=== PATIENT | female | born 1965 | race African-American/Black ===

== ENCOUNTER 2016-11-23 20:20 | Observation (INO) | payer OTHER ==
--- NOTE | 2016-11-24 01:25 | PDOC ---
History of Present Illness - General History Source: Patient Exam Limitations: No Limitations - History of Present Illness Initial Comments: 11/24/16 01:41 The patient is a 51 year old female with a significant past medical history of Throat CA, borderline diabetes, and colitis who presents to the ED with complaints of abdominal pain for 2 days. Patient reports 3 years of intermittent abdominal pain. She states her symptoms progressively worsened and yesterday she felt like something burst inside her stomach. She reports developing chills with a slight cough last night. Patient reports her abdominal pain is worsened when laying on her back. As per daughter, the patients eyes are red and swollen. Patient had a fever upon arrival to the ED. Denies nausea, vomiting, or diarrhea. Denies chest pain or shortness of breath. Denies dysuria, frequency, or urgency. Denies any other symptoms. Social hx: Patient is a current everyday smoker. <Beto Murcia - Last Filed: 11/24/16 01:41> <Nora Arvizu - Last Filed: 11/24/16 07:41> - General Chief Complaint: Weakness Stated Complaint: Lightheaded/ PAIN Time Seen by Provider: 11/24/16 01:25 Past History <Beto Murcia - Last Filed: 11/24/16 01:41> - Past Medical History GI Disorders: Yes (colitis) - Psycho/Social/Smoking Cessation Hx Suicidal Ideation: No Smoking History: Current every day smoker Number of Cigarettes Smoked Daily: 2 Information on smoking cessation initiated: No <Nora Arvizu - Last Filed: 11/24/16 07:41> - Past Medical History Allergies/Adverse Reactions: Allergies Allergy/AdvReac Type Severity Reaction Status Date / Time No Known Allergies Allergy Verified 11/24/16 03:37 Home Medications: Ambulatory Orders Amoxicillin/Potassium Clav [Augmentin 875-125 Tablet] 1 each PO BID #20 tablet 11/24/16 Bupropion HCl [Bupropion HCl Sr] 150 mg PO DAILY 11/24/16 Cyclobenzaprine HCl [Flexeril 10 mg] 10 mg PO DAILY 11/24/16 Linaclotide [Linzess] 145 mcg PO DAILY 11/24/16 Metronidazole 250 mg PO DAILY 11/24/16 Omeprazole 20 mg PO DAILY 11/24/16 Pantoprazole Sodium 40 mg PO DAILY 07/08/17 Review of Systems - Review of Systems Able to Perform ROS?: Yes Comments:: 11/24/16 01:41 CONSTITUTIONAL: + chills, fever Absent: diaphoresis, generalized weakness, malaise, loss of appetite HEENT: + red and swollen eyes Absent: rhinorrhea, nasal congestion, throat pain, throat swelling, difficulty swallowing, mouth swelling, ear pain, eye pain, visual Changes CARDIOVASCULAR: Absent: chest pain, syncope, palpitations, irregular heart rate, lightheadedness , peripheral edema RESPIRATORY: + cough Absent: cough, shortness of breath, dyspnea with exertion, orthopnea, wheezing, stridor, hemoptysis GASTROINTESTINAL: + abdominal pain Absent: abdominal pain, abdominal distension, nausea, vomiting, diarrhea, constipation, melena, hematochezia GENITOURINARY: Absent: dysuria, frequency, urgency, hesitancy, hematuria, flank pain, genital pain MUSCULOSKELETAL: Absent: myalgia, arthralgia, joint swelling SKIN: Absent: rash, itching, pallor HEMATOLOGIC/IMMUNOLOGIC: Absent: easy bleeding, easy bruising, lymphadenopathy, frequent infections ENDOCRINE: Absent: unexplained weight gain, unexplained weight loss, heat intolerance, cold intolerance NEUROLOGIC: Absent: headache, focal weakness or paresthesias, dizziness, unsteady gait, seizure, mental status changes, bladder or bowel incontinence PSYCHIATRIC: Absent: anxiety, depression, suicidal or homicidal ideation, hallucinations. All Other Systems: Reviewed and Negative <Beto Murcia - Last Filed: 11/24/16 01:41> *Physical Exam - Vital Signs Last Vital Signs Temp Pulse Resp BP Pulse Ox 102.9 F H 85 18 127/83 99 11/23/16 20:33 11/23/16 20:33 11/23/16 20:33 11/23/16 20:33 11/23/16 20:33 - Physical Exam Comments: 11/24/16 01:42 GENERAL: Well developed, well nourished. Awake and alert. No acute distress. HEENT: Normocephalic, atraumatic. PERRLA, EOMI. No conjunctival pallor. Sclera are non- icteric. Moist mucous membranes. Oropharynx is clear. NECK: Supple. Full ROM. No JVD. Carotid pulses 2+ and symmetric, without bruits. No thyromegaly. NCo lymphadenopathy. CARDIOVASCULAR: Regular rate and rhythm. No murmurs, rubs, or gallops. Distal pulses are 2+ and symmetric. PULMONARY: No evidence of respiratory distress. Lungs clear to auscultation bilaterally. No wheezing, rales or rhonchi. ABDOMINAL: + Left lower quadrant tenderness minimal left flank tenderness. Soft. Non-distended. No rebound or guarding. No organomegaly. Normoactive bowel sounds. MUSCULOSKELETAL Normal range of motion at all joints. No bony deformities or tenderness. No CVA tenderness. EXTREMITIES: No cyanosis. No clubbing. No edema. No calf tenderness. SKIN: Warm and dry. Normal capillary refill. No rashes. No jaundice. NEUROLOGICAL: Alert, awake, appropriate. Cranial nerves 2-12 intact. No deficits to light touch and temperature in face, upper extremities and lower extremities. No motor deficits in the in face, upper extremities and lower extremities. Normoreflexic in the upper and lower extremities. Normal speech. Toes are down- going bilaterally. Gait is normal without ataxia. PSYCHIATRIC: Cooperative. Good eye contact. Appropriate mood and affect. <Beto Murcia - Last Filed: 11/24/16 01:41> - Vital Signs Last Vital Signs Temp Pulse Resp BP Pulse Ox 102.9 F H 85 18 127/83 99 11/23/16 20:33 11/23/16 20:33 11/23/16 20:33 11/23/16 20:33 11/23/16 20:33 <Nora Arvizu - Last Filed: 11/24/16 07:41> ED Treatment Course - LABORATORY CBC & Chemistry Diagram: 11/24/16 01:33 11/24/16 01:33 <Nora Arvizu - Last Filed: 11/24/16 07:41> Medical Decision Making - Medical Decision Making 11/24/16 06:56 Patient Name: Nancy Coffey THIS IS A PRELIMINARY REPORT FROM [facility] DATE OF SERVICE: 2016-11-24 05:33:00.0 IMAGES: [id number] EXAM: CT chest abdomen and pelvis WITHOUT CONTRAST HISTORY:Right lung nodules, concern for colitis COMPARISON: None. TECHNIQUE: CT chest abdomen pelvis without vascular contrast axial FINDINGS:Heart remains normal. Thoracic aorta and great vessels appear normal. Superior vena caval and inferior vena cava appear normal. Pulmonary arteries are normal in caliber. Thoracic esophagus is normal. Mediastinal lymph nodes are not enlarged. The There is a 2.3 x 2.1 x 2.2 cm right lower lobe subpleural partially calcified nodule. Calcification morphology appears to reflect a hamartoma. There is a 3 mm calcified nodule in the lateral right middle lobe. There is no pleural effusion or pneumothorax. Chest wall appears normal. Right thyroid is surgically absent CT Abdomen Liver: Normal Spleen: Normal Pancreas: Normal Gallbladder: Normal Stomach: Normal Small bowel: Normal Large bowel: There is some thickening in the sigmoid colon and descending colon Appendix: Normal Adrenals :Normal Kidneys: Normal Vascular: Normal Lymphatic: Normal Peritoneal: No free peritoneal air or fluid Pelvis: Uterus: Normal Rectum: Normal Bladder: Normal General: The Skeletal: Normal Abdominal wall: There is fat within the right inguinal canal IMPRESSION: Nonspecific sigmoid colitis. Pulmonary hamartoma Pulmonary granuloma THIS DOCUMENT HAS BEEN ELECTRONICALLY SIGNED 11/24/16 07:03 Pt has colitis and she has fever and abd pain and she will be admitted to the hospitalist for IV abx and IV hydration. 11/24/16 07:04 Pt came with fever and abd pain. She was refusing repeat attempts at IV placement and was refusing all meds in the hospital. However, this AM an IV was successfully placed and at the same time her CT result returbed; she has a colitis/sigmoiditis and she is agreeing to IV abx. and admission as her abd hurts and she is unable to tolerate PO. <Nora Arvizu - Last Filed: 11/24/16 07:41> *DC/Admit/Observation/Transfer - Attestations Scribe Attestion: 11/24/16 01:42 Documentation prepared by Beto Murcia, acting as biomedical photographer for Nora Arvizu MD <Beto Murcia - Last Filed: 11/24/16 01:41> - Discharge Dispostion Admit: Yes <Nora Arvizu - Last Filed: 11/24/16 07:41> Diagnosis at time of Disposition: Colitis - Discharge Dispostion Condition at time of disposition: Guarded - Prescriptions Prescriptions: Amoxicillin/Potassium Clav [Augmentin 875-125 Tablet] 1 each PO BID #20 tablet - Referrals Referrals: He Abbott MD [Primary Care Provider] -
[2016-11-24] MEDS ORDERED: morphine CARPU-JECT 2 MG/1 ML DISP.SYRIN IVPUSH ONE (01:27)
[2016-11-24] MEDS ORDERED: ACETAMINOPHEN 1000 MG/100 ML VIAL (NON FORMULARY) IVPB ONE ×2 (01:27→07:09)
[2016-11-24] MEDS ORDERED: METRONIDAZOLE 500 MG PREMIXED 100 ML IVPB ONE ×2 (01:38→07:02)
[2016-11-24 01:50] LABS: BASOPHIL 0.2 % (0-2.0); EOSINOPHIL 0.1 % (0-4.5); MCH 31.2 pg (25.7-33.7); MCHC 33.7 g/dl (32.0-36.0); MEAN CELL VOLUME 92.6 fl (80-96); NEUTROPHILS 84.4 % (42.8-82.8); PLATELET COUNT 231 K/MM3 (134-434); WHITE BLOOD COUNT 7.8 K/mm3 (4.0-10.0)
[2016-11-24 01:51] LABS: URINE APPEARANCE CLEAR; URINE BILIRUBIN NEGATIVE (NEGATIVE); URINE COLOR YELLOW; URINE GLUCOSE (UA) NEGATIVE (NEGATIVE); URINE KETONE NEGATIVE (NEGATIVE); URINE NITRITE NEGATIVE (NEGATIVE); URINE UROBILINOGEN NEGATIVE E.U./dl (0.2-1.0)
[2016-11-24 01:56] LABS: URINE BLOOD 1+ (NEGATIVE); URINE LEUK ESTERASE 1+ (NEGATIVE); URINE PROTEIN 1+ (NEGATIVE)
[2016-11-24 01:59] LABS: URINE BACTERIA RARE /hpf (NONE SEEN); URINE MUCUS RARE; URINE RBC 2 /hpf (0-3); URINE WBC 6 /hpf (3-5)
[2016-11-24 02:04] LABS: INR 1.04 (0.82-1.09); PROTHROMBIN TIME (PATIENT) 11.4 SEC (9.98-11.88)
[2016-11-24] MEDS ORDERED: morphine CARPU-JECT 2 MG/1 ML DISP.SYRIN ONE ×2 (02:04→08:51)
[2016-11-24] MEDS ORDERED: ACETAMINOPHEN INJECTION 0 ML IVPB ONE (02:04)
[2016-11-24 02:12] LABS: ALBUMIN 3.7 g/dl (3.4-5.0); ANION GAP 6 (8-16); BILIRUBIN,TOTAL 0.6 mg/dL (0.2-1.0); CALCIUM 8.2 mg/dL (8.5-10.1); CO2 30 mmol/L (21-32); CREATININE 0.6 mg/dL (0.55-1.02); GLUCOSE,RANDOM 99 mg/dL (74-106); SGOT/AST 17 U/L (15-37); SGPT/ALT 24 U/L (12-78); TOT PROT 7.5 g/dl (6.4-8.2)
[2016-11-24 02:14] LABS: ALK PHOS 85 U/L (45-117); TROPONIN I < 0.02 ng/ml (0.00-0.05)
[2016-11-24] MEDS: ACETAMINOPHEN 325 MG TABLET (FP) PO ONE ×2 (06:55→07:11)
[2016-11-24] MEDS: PIPERACILLIN/TAZOB 3.375 GM 3.375 GM in DEXTROSE 5%-WATER - 50 ML IVPB ONE ×2 (06:55→08:15)
[2016-11-24] MEDS: SODIUM CHLORIDE 0.9% 1000 ML INFUS.BAG IV PRN ×2 (07:08→19:06)
[2016-11-24 07:19] LABS: VENOUS BLOOD GAS HCO3 25.6 meq/L (19-25); VENOUS PH 7.41 (7.32-7.42)
[2016-11-24] MEDS ORDERED: PIPERACILLIN/TAZOB 3.375 GM 50 ML IVPB ONE (08:03)
--- NOTE | 2016-11-24 08:26 | HP ---
CHIEF COMPLAINT: "i have stomach pain" PCP: Dr Abbott HISTORY OF PRESENT ILLNESS: This is a 51 yo female smoker with a PMH of recurrent infectious colitis, hemorrhoids, Throat CA (remission) and borderline DM, who presents to the ED due to abd pain x 2 d. She states that it started suddenly and gradually worsened. Pain is 10/10, constant, sharp, mostly left sided and radiating to L flank and epigastric region as burning sensation. She reports associated fever, malaise and anorexia w/o n/v, chills, diarrhea or constipation. She has had this happen 2x before, last time in 2014, when she was treated in [facility] with IV abx w/o surgical intervention. Her last colonoscopy by Dr Ivey was 2 yrs ago, at [facility] time a polyp was removed and she was told to repeat in 3 yrs. She has a history of constipation and hemorrhoids, with occasional bright red bloody, painful BMs when straining, last hematochezia 1 w ago. Last normal nonbloody nonmelenous nonpainful BM yesterday. She unintentionally lost 5 lb recently. She denies dysuria, hematuria, urgency, chest pain, sob, h/a. ER course was notable for: (1)labs (2)cxr, chest ct: lung nodules p[resent that patient is aware of and follows with pulm outpatient abd CT: sigmoiditis w/o abscess (3)flagyl, zosyn, 1L ns, iv tylenol, morphine Recent Travel: denies PAST MEDICAL HISTORY: as above PAST SURGICAL HISTORY: ovarian tubal ligation Social History: Smoking: heavy smoker for 30 yrs Alcohol: denies Drugs: past crack user Family History: brother from lung CA in 40's (smoker), mother CAD and DM Allergies No Known Allergies Allergy (Verified 11/24/16 03:37) HOME MEDICATIONS: Home Medications Medication Instructions Recorded Amoxicillin/Potassium Clav 1 each PO BID #20 tablet 11/24/16 [Augmentin 875-125 Tablet] Bupropion HCl [Bupropion HCl Sr] 150 mg PO DAILY 11/24/16 Cyclobenzaprine HCl [Flexeril 10 10 mg PO DAILY 11/24/16 mg] Linaclotide [Linzess] 145 mcg PO DAILY 11/24/16 Metronidazole 250 mg PO DAILY 11/24/16 Omeprazole 20 mg PO DAILY 11/24/16 Pantoprazole Sodium 40 mg PO DAILY 11/24/16 REVIEW OF SYSTEMS CONSTITUTIONAL: Absent: diaphoresis HEENT: Absent: rhinorrhea, nasal congestion, throat pain, difficulty swallowing, CARDIOVASCULAR: Absent: chest pain, syncope, palpitations RESPIRATORY: Absent: shortness of breath GASTROINTESTINAL: Absent: abdominal distension, nausea, vomiting, diarrhea, constipation GENITOURINARY: Absent: dysuria, frequency, urgency MUSCULOSKELETAL: Absent: myalgia, arthralgia SKIN: Absent: rash, itching, pallor HEMATOLOGIC/IMMUNOLOGIC: Absent: frequent infections ENDOCRINE: Absent: heat intolerance, cold intolerance NEUROLOGIC: Absent: headache, focal weakness or paresthesias PSYCHIATRIC: Absent: anxiety, depression Laboratory Tests 11/24/16 11/24/16 11/24/16 01:33 01:33 01:37 WBC 7.8 Hgb 13.2 Hct 39.4 Plt Count 231 Neutrophils % 84.4 H Sodium 141 Potassium 3.7 Chloride 105 Carbon Dioxide 30 Anion Gap 6 L BUN 8 Creatinine 0.6 Creat Clearance w eGFR > 60 Random Glucose 99 Lactic Acid 1.0 Calcium 8.2 L Total Bilirubin 0.6 AST 17 ALT 24 Alkaline Phosphatase 85 Creatine Kinase 70 Troponin I < 0.02 Total Protein 7.5 Albumin 3.7 Urine Color Urine Appearance Urine pH Ur Specific [place] Urine Protein Urine Glucose (UA) Urine Ketones Urine Blood Urine Nitrite Urine Bilirubin Urine Urobilinogen Ur Leukocyte Esterase Urine RBC Urine WBC Ur Epithelial Cells Urine Bacteria Urine Mucus 11/24/16 11/24/16 01:39 06:54 WBC Hgb Hct Plt Count Neutrophils % Sodium Potassium Chloride Carbon Dioxide Anion Gap BUN Creatinine Creat Clearance w eGFR Random Glucose Lactic Acid 0.8 Calcium Total Bilirubin AST ALT Alkaline Phosphatase Creatine Kinase Troponin I Total Protein Albumin Urine Color Yellow Urine Appearance Clear Urine pH 6.0 Ur Specific [place] Pending Urine Protein 1+ H Urine Glucose (UA) Negative Urine Ketones Negative Urine Blood 1+ H Urine Nitrite Negative Urine Bilirubin Negative Urine Urobilinogen Negative Ur Leukocyte Esterase 1+ H Urine RBC 2 Urine WBC 6 Ur Epithelial Cells Moderate Urine Bacteria Rare Urine Mucus Rare PHYSICAL EXAMINATION GENERAL: Awake, alert, and fully oriented, in mild distress. HEAD: Normal with no signs of trauma. EYES: Pupils equal, round and reactive to light, extraocular movements intact, sclera anicteric, conjunctiva clear. No lid lag. EARS, NOSE, THROAT: Moist mucous membranes. NECK: supple without JVD LUNGS: Breath sounds equal, clear to auscultation bilaterally HEART: Regular rate and rhythm, normal S1 and S2 ABDOMEN: Soft, tender LLQ, not distended, globally reduced bowel sounds, voluntary guarding LLQ, no rebound, no masses. No hepatomegaly or splenomegaly. MUSCULOSKELETAL: L CVA tenderness. UPPER EXTREMITIES: 2+ pulses, warm, well-perfused. No cyanosis. No clubbing. No peripheral edema. LOWER EXTREMITIES: 2+ pulses, warm, well-perfused. No calf tenderness. No peripheral edema. NEUROLOGICAL: Cranial nerves II-XII grossly intact. Normal speech. PSYCHIATRIC: Cooperative. Good eye contact. Appropriate mood and affect. SKIN: Warm, dry ASSESSMENT/PLAN: his is a 51 yo female smoker with a PMH of recurrent infectious colitis, hemorrhoids, Throat CA (remission) and borderline DM, who presents to the ED due to abd pain x 2 d Uncomplicated sigmoid colitis -does not meet SIRS criteria; fever 102.9, no leukocytosis, + neutrophelia, hemodynamically stable -CT abd shows sigmoiditis w/o abscess -s/p zosyn, flagyl in ED; will continue; expect to switch to PO abx shortly -IV tylenol and morphine for pain, -LR @ 150 -PPI -clears -Dr Ivey consult -blood cultures p/d Pulmonary nodules -no acute preocess on CXR or chest CT -history of TB exposure s/p abx treatment in youth -f/u with pulmonology outpatient Current daily smoker -cessation counseling -nicotine patch Dispo: obs in [facility] Problem List - Problem (1) Colitis Code(s): K52.9 - NONINFECTIVE GASTROENTERITIS AND COLITIS, UNSPECIFIED (2) Lung nodule, multiple Code(s): R91.8 - OTHER NONSPECIFIC ABNORMAL FINDING OF LUNG FIELD (3) Smoker Code(s): F17.200 - NICOTINE DEPENDENCE, UNSPECIFIED, UNCOMPLICATED Visit type - Emergency Visit Emergency Visit: Yes ED Registration Date: 11/24/16 Care time: The patient presented to the Emergency Department on the above date and was hospitalized for further evaluation of their emergent condition. - New Patient This patient is new to me today: Yes Date on this admission: 11/24/16 - Critical Care Critical Care patient: No
--- NOTE | 2016-11-24 08:31 | HP ---
CHIEF COMPLAINT: Abdominal Pain PCP Scar Cutler HISTORY OF PRESENT ILLNESS: 51 year old female with a pmh of colitis, hemorrhoids, borderline DM, and throat cancer who presented to the ED with a 2 day history of abdominal pain. Patient has a 3 year history of intermittent abdominal pain and states her symptoms started suddenly and worsened over the last 2 days. Pain is constant, sharp and on her left side radiating to her back and chest, like a burning sensation. Positive ROS: Fever, chills, lack of appetite, Negative ROS: Denies nausea, vomiting, diarrhea, chest pain, shortness of breath , dysuria, hematuria Of note, patient has had multiple episodes in the past of this, last one in 2014. Never had a surgical procedure done. She had a colonoscopy done last year by Dr. Ivey. A polyp was removed and was told to come back in a few years. She also has a history of hemorrhoids and constipation, for which she intermittently gets hematochezia (last episode last week). Otherwise her last meal and BM were yesterday In addition, patient has a remote history of Tb exposure and finished a course of INH +B6. She follows with a horse groomer for lung nodules and was supposed to get TB blood work done. ER course was notable for: (1) T 102.7 (2) CXR - which showed no change from a prior CXR with her lung nodules (3) Started on Flagyl, Zosyn, IV tylenol, and 1 L NS Recent Travel: n/a PAST MEDICAL HISTORY: Throat cancer PAST SURGICAL HISTORY: Tubal ligation Social History: Smoking: History of 1 ppd for many years, now down to 2 cigarettes per day Alcohol:No Drugs: Previous cocaine user Family History: Brother of lung cancer at 40 Allergies: No Known Allergies Allergy (Verified 11/24/16 03:37) HOME MEDICATIONS: Home Medications Medication Instructions Recorded Amoxicillin/Potassium Clav 1 each PO BID #20 tablet 11/24/16 [Augmentin 875-125 Tablet] Bupropion HCl [Bupropion HCl Sr] 150 mg PO DAILY 11/24/16 Cyclobenzaprine HCl [Flexeril 10 10 mg PO DAILY 11/24/16 mg] Linaclotide [Linzess] 145 mcg PO DAILY 11/24/16 Metronidazole 250 mg PO DAILY 11/24/16 Omeprazole 20 mg PO DAILY 11/24/16 Pantoprazole Sodium 40 mg PO DAILY 11/24/16 REVIEW OF SYSTEMS CONSTITUTIONAL: Absent: diaphoresis, generalized weakness, malaise, weight change Present: fever, chills, loss of appetite HEENT: Absent: rhinorrhea, nasal congestion, throat pain, throat swelling, difficulty swallowing, mouth swelling, ear pain, eye pain, visual changes CARDIOVASCULAR: Absent: chest pain, syncope, palpitations, irregular heart rate, lightheadedness , peripheral edema RESPIRATORY: Absent: shortness of breath, dyspnea with exertion, orthopnea, wheezing, stridor, hemoptysis Positive: cough GASTROINTESTINAL: Absent: abdominal distension, nausea, vomiting, diarrhea, constipation, melena, hematochezia Positive: abdominal pain GENITOURINARY: Absent: dysuria, frequency, urgency, hesitancy, hematuria, flank pain, genital pain MUSCULOSKELETAL: Absent: myalgia, arthralgia, joint swelling, back pain, neck pain SKIN: Absent: rash, itching, pallor HEMATOLOGIC/IMMUNOLOGIC: Absent: easy bleeding, easy bruising, lymphadenopathy, frequent infections ENDOCRINE: Absent: unexplained weight gain, unexplained weight loss, heat intolerance, cold intolerance NEUROLOGIC: Absent: headache, focal weakness or paresthesias, dizziness, unsteady gait, seizure, mental status changes, bladder or bowel incontinence PSYCHIATRIC: Absent: anxiety, depression, suicidal or homicidal ideation, hallucinations. PHYSICAL EXAMINATION VS- GENERAL: Awake, alert, and fully oriented, in mild distress. HEAD: Normal with no signs of trauma. EYES: Pupils equal, round and reactive to light, extraocular movements intact, sclera anicteric, conjunctiva clear. No lid lag. EARS, NOSE, THROAT: Ears normal, nares patent, oropharynx clear without exudates. Moist mucous membranes. NECK: Normal range of motion, supple without lymphadenopathy, JVD, or masses. LUNGS: Breath sounds equal, clear to auscultation bilaterally. No wheezes, and no crackles. No accessory muscle use. HEART: Regular rate and rhythm, normal S1 and S2 without murmur, rub or gallop. ABDOMEN: Soft, Tender in LUQ and LLQ and Left flank, not distended, normoactive bowel sounds, mild guarding, no rebound, no masses. No hepatomegaly or splenomegaly. MUSCULOSKELETAL: Normal range of motion at all joints. No bony deformities or tenderness. No CVA tenderness. UPPER EXTREMITIES: 2+ pulses, warm, well-perfused. No cyanosis. No clubbing. No peripheral edema. LOWER EXTREMITIES: 2+ pulses, warm, well-perfused. No calf tenderness. No peripheral edema. NEUROLOGICAL: Cranial nerves II-XII intact. Normal speech. Normal gait. PSYCHIATRIC: Cooperative. Good eye contact. Appropriate mood and affect. SKIN: Warm, dry, normal turgor, no rashes or lesions noted, normal capillary refill. Labs- WBC- 7.8, Lactic acid was 1 followed by 0.8 Imaging- CT abd was done, report not back but looks like an inflamed sigmoid colon ASSESSMENT/PLAN: 51 year old female with a pmh of colitis presenting with 2 day history of worsening abdominal pain 1. Uncomplicated Sigmoiditis, likely infectious and less likely ischemic - Started on Zosyn and Flagyl in the ED - IVF 1L bolus - given IV tylenol for pain - WBC- 7.8 - CT shows inflamed sigmoid colon Plan: -Admit to obs -Consult GI (consult GI) -Change ABx to IV Rocephin 1g BID and IV Flagyl 500 mg Q6H -Morphine 2g Q4H PRN -IVF NS 150 cc/hr -Clear Liquid Diet -F/u BCX 2. Pulmonary Nodules -History of TB exposure -pt states she needs to get labs drawn Plan: -F/u outpatient w/ her horse groomer 3. Smoker -Long hx of smoking Plan: -Discussed smoking cessation -Patient given nicotine patch 4. GERD -chronic Plan: -PO protonix 40 mg daily Visit type - Emergency Visit Emergency Visit: Yes ED Registration Date: 11/24/16 Care time: The patient presented to the Emergency Department on the above date and was hospitalized for further evaluation of their emergent condition. - New Patient This patient is new to me today: Yes Date on this admission: 11/24/16 - Critical Care Critical Care patient: No
[2016-11-24] MEDS ORDERED: LACTATED RINGERS SOLUTION 1,000 ML IV SCH (08:45)
[2016-11-24] MEDS: morphine CARPU-JECT 2 MG/1 ML DISP.SYRIN IVPUSH PRN ×2 (08:55→21:41)
--- NOTE | 2016-11-24 08:59 | PN ---
Teaching Attending Note Name of Resident: Teddy Goldberg ATTENDING PHYSICIAN STATEMENT I saw and evaluated the patient. I reviewed the resident's note and discussed the case with the resident. I agree with the resident's findings and plan as documented. SUBJECTIVE: This is a 51-year-old woman with a history of colitis, throat cancer , hemorrhoids, constipation, borderline DM, lung nodules, GERD who presents to the ER complaining of LLQ abdominal pain and weakness for several days. She denies fever, chills, nausea, diarrhea, melena, rectal bleeding. OBJECTIVE: Vital Signs Period Temp Pulse Resp BP Sys/Dudley Pulse Ox Last 24 Hr 101.7 F-102.9 F 85-85 17-18 109-127/54-83 98-99 HEART: S1S2, RRR LUNGS: Clear ABDOMEN: Soft, non-distended, normal BS, (+) LLQ tenderness EXTREMITIES: No edema ASSESSMENT AND PLAN: This is a 51-year-old woman with a history of colitis, throat cancer, hemorrhoids, constipation, borderline DM, lung nodules, GERD who came to the ER with LLQ abdominal pain and weakness for several days. 1. Sigmoid colitis - Treated in ER with Zosyn, Flagyl - Place in observation - IV fluid - Rocephin, Flagyl - Clear liquid diet 2. Lung nodules - CT shows no significant change from 2006 - Outpatient pulmonary follow-up 3. Borderline DM 4. Throat cancer 5. Nicotine dependence - Nicotine patch 6. GERD - Continue Protonix
[2016-11-24] MEDS ORDERED: METRONIDAZOLE 500 MG PREMIXED 100 ML IVPB SCH (09:00)
[2016-11-24] MEDS ORDERED: SODIUM CHLORIDE 1,000 ML IV SCH (09:15)
[2016-11-24] MEDS ORDERED: PANTOPRAZOLE SODIUM 100 ML IVPB SCH (10:00)
[2016-11-24] MEDS: PANTOPRAZOLE 40 MG TABLET (FP) PO SCH (11:53)
[2016-11-24] MEDS: NICOTINE 7 MG/24 HOURS TOPICAL PATCH TD SCH ×2 (11:55→14:14)
[2016-11-24] MEDS: METRONIDAZOLE 500 MG PREMIXED 100 ML IVPB SCH ×4 (11:56→21:17)
[2016-11-24] MEDS ORDERED: CEFTRIAXONE 1,000 MG in DEXTROSE 5%-WATER - 50 ML IVPB SCH (14:00)
[2016-11-24] MEDS ORDERED: CEFTRIAXONE 1,000 MG in DEXTROSE 5%-WATER - 50 ML IVPB ONE (14:00)
[2016-11-24] MEDS ORDERED: CEFTRIAXONE 1 MG in DEXTROSE 5%-WATER - 50 ML IVPB ONE (14:00)
[2016-11-24 16:11] VITALS: BMI 30.8
--- NOTE | 2016-11-24 16:43 | CON.GI ---
Consult Consult Specialty:: gastroeneterology Referred by:: Dr Davalos - History of Present Illness Chief Complaint: sigmoiditis History of Present Illness: 51 y/oo female with no significant PMH, FHX of stomach cancer--sister , was doing well until 1 week ago when he developed persistent llq pain associated with high grade fever. She denies nausea, vomiting,and weight loss. S/p colonoscopy a few years ago. - Alcohol/Substance Use Hx Alcohol Use: No - Smoking History Smoking history: Current every day smoker Have you smoked in the past 12 months: Yes Aproximately how many cigarettes per day: 2 Home Medications - Allergies Allergies/Adverse Reactions: Allergies Allergy/AdvReac Type Severity Reaction Status Date / Time No Known Allergies Allergy Verified 11/24/16 03:37 - Home Medications Home Medications: Ambulatory Orders Albuterol 0.083% Nebulizer Marisa [Ventolin 0.083% Nebulizer Soln -] 1 amp NEB PRN 11/24/16 Albuterol Sulfate Inhaler - [Ventolin Hfa Inhaler -] 1 puff IH PRN 11/24/16 Linaclotide [Linzess] 145 mcg PO DAILY 11/24/16 Omeprazole 20 mg PO DAILY 11/24/16 Family Disease History - Family Disease History Family Disease History: Other: Sister (stomach cancer) Review of Systems - Review of Systems Constitutional: reports: Fever Eyes: denies: Blurred Vision HENT: denies: Difficult Swallowing Neck: denies: Decreased ROM Cardiovascular: denies: Chest Pain Respiratory: denies: Hemoptysis, SOB Gastrointestinal: reports: Abdominal Pain (--llq). denies: Indigestion, Melena , Nausea, Rectal Bleeding Physical Exam-GI Vital Signs: Vital Signs Temperature 99.6 F 11/24/16 09:11 Pulse Rate 78 11/24/16 09:11 Respiratory Rate 16 11/24/16 16:11 Blood Pressure 101/64 11/24/16 09:11 O2 Sat by Pulse Oximetry (%) 97 11/24/16 16:11 Constitutional: Yes: Well Nourished Eyes: Yes: Conjunctiva Clear HENT: Yes: Atraumatic Neck: Yes: Trachea Midline Cardiovascular: Yes: Regular Rate and Rhythm Respiratory: Yes: CTA Bilaterally ...Palpate: Yes: Soft, Tenderness (--llq). No: Firm/Rigid, Guarding, Mass, Splenomegaly Labs: INR, PTT INR 1.04 (0.82-1.09) 11/24/16 01:33 Imaging - Results Cat Scan: Image Reviewed (inflammed rectum and sigmoid) Problem List - Problems (1) LLQ abdominal pain Assessment/Plan: r/o ischemia vs malignancy R>IV hydration IV antibtiocs made aware to follow-up, for colonoscopy in 6 weeks Code(s): R10.32 - LEFT LOWER QUADRANT PAIN
[2016-11-24] MEDS: SODIUM CHLORIDE 1,000 ML IV SCH (21:17)
[2016-11-25] MEDS: METRONIDAZOLE 500 MG PREMIXED 100 ML IVPB SCH ×3 (02:45→15:06)
[2016-11-25] MEDS: SODIUM CHLORIDE 1,000 ML IV SCH ×2 (07:09→07:25)
[2016-11-25 07:38] LABS: BASOPHIL 0.4 % (0-2.0); EOSINOPHIL 1.7 % (0-4.5); MCH 31.9 pg (25.7-33.7); MCHC 34.1 g/dl (32.0-36.0); MEAN CELL VOLUME 93.7 fl (80-96); NEUTROPHILS 51.8 % (42.8-82.8); PLATELET COUNT 184 K/MM3 (134-434); WHITE BLOOD COUNT 4.4 K/mm3 (4.0-10.0)
[2016-11-25 08:14] LABS: ANION GAP 8 (8-16); CALCIUM 7.6 mg/dL (8.5-10.1); CO2 26 mmol/L (21-32); CREATININE 0.5 mg/dL (0.55-1.02); GLUCOSE,RANDOM 102 mg/dL (74-106); PHOSPHOROUS 2.4 mg/dL (2.5-4.9)
[2016-11-25] MEDS ORDERED: CEFTRIAXONE 1,000 MG in DEXTROSE 5%-WATER - 50 ML IVPB SCH (09:21)
[2016-11-25] MEDS: PANTOPRAZOLE 40 MG TABLET (FP) PO SCH (09:24)
[2016-11-25] MEDS ORDERED: CEFTRIAXONE 1 GM in DEXTROSE 5%-WATER - 50 ML IVPB SCH (09:24)
[2016-11-25] MEDS: NICOTINE 7 MG/24 HOURS TOPICAL PATCH TD SCH (09:25)
--- NOTE | 2016-11-25 10:17 | PN ---
GI Progress Note Subjective: abdominal pain less, no nausea, no vomiting - Objective Vital Signs: Vital Signs Temperature 98.1 F 11/25/16 06:58 Pulse Rate 60 11/25/16 06:58 Respiratory Rate 20 11/25/16 06:58 Blood Pressure 129/70 11/25/16 06:58 O2 Sat by Pulse Oximetry (%) 97 11/25/16 00:00 Constitutional: Well Nourished Eyes: Yes: Conjunctiva Clear HENT: Yes: Atraumatic Neck: Yes: Trachea Midline Cardiovascular: Yes: Regular Rate and Rhythm ...Palpate: Yes: Soft, Tenderness (--mild). No: Firm/Rigid, Guarding, Hepatomegaly, Mass, Pulsatile Mass, Splenomegaly Labs: CBC, BMP 11/25/16 06:05 11/25/16 06:05 INR, PTT INR 1.04 (0.82-1.09) 11/24/16 01:33 Problem List - Problems (1) LLQ abdominal pain Assessment/Plan: sigmoid inflammation r/o ischemia R> made aware to follow- up as an outpatient advance diet as tolerated Code(s): R10.32 - LEFT LOWER QUADRANT PAIN
[2016-11-25 14:53] VITALS: TEMP 98.5
--- NOTE | 2016-11-25 16:21 | DS ---
Physical Exam: SUBJECTIVE: Patient seen and examined. She has no complaints. She ate lunch without difficulty. She is ambulating without difficulty. OBJECTIVE: Vital Signs Period Temp Pulse Resp BP Sys/Dudley Pulse Ox Last 24 Hr 98.1 F-99.9 F 60-78 16-20 108-148/67-94 97-97 PHYSICAL EXAM GENERAL: The patient is awake, alert, and fully oriented, in no acute distress. LUNGS: Breath sounds equal, clear to auscultation bilaterally, no wheezes, no crackles, no accessory muscle use. HEART: Regular rate and rhythm, S1, S2 without murmur, rub or gallop. ABDOMEN: Soft, nontender, nondistended, normoactive bowel sounds, no guarding, no rebound, no hepatosplenomegaly, no masses. EXTREMITIES: 2+ pulses, warm, well-perfused, no edema. LABS Laboratory Results - last 24 hr 11/25/16 11/25/16 06:05 06:05 WBC 4.4 D RBC 3.52 L Hgb 11.2 D Hct 33.0 D MCV 93.7 MCH 31.9 MCHC 34.1 RDW 14.0 Plt Count 184 D MPV 9.0 Neutrophils % 51.8 D Lymphocytes % 31.9 D Monocytes % 14.2 H D Eosinophils % 1.7 D Basophils % 0.4 Sodium 142 Potassium 4.1 Chloride 108 H Carbon Dioxide 26 Anion Gap 8 BUN 6 L D Creatinine 0.5 L Random Glucose 102 Calcium 7.6 L Phosphorus 2.4 L Magnesium 2.0 HOSPITAL COURSE: Date of Admission:11/24/16 Date of Discharge: 11/25/16 Minutes to complete discharge: 30 Discharge Summary Reason For Visit: COLITIS Current Active Problems Colitis (Acute) Borderline type 2 diabetes mellitus (Chronic) GERD (gastroesophageal reflux disease) (Chronic) History of throat cancer (Chronic) Lung nodule, multiple (Chronic) Nicotine dependence (Chronic) Hospital Course: This is a 51-year-old woman with a history of colitis, throat cancer, hemorrhoids, constipation, borderline DM, lung nodules, GERD who presents to the ER on 11/23 complaining of LLQ abdominal pain and weakness for several days. In the ER, she had a fever of 102.9. WBC was normal. CT of abdomen/pelvis showed non-specific acute colitis involving the descending and sigmoid colon, left-sided diverticulosis, and fat-containing right inguinal hernia. Chest x- ray showed cardiomegaly, full right hilum, elevated right hemidiaphragm, scarring at right base with calcified mass. Chest CT showed stable bilateral lung nodules (unchanged from 2006). She was admitted for treatment of sigmoid colitis. She was treated with Rocephin and Flagyl, IV fluid, and she was placed on a clear liquid diet. She was seen by Dr. Ivey. It was recommended that she have a colonoscopy in about 6 weeks. With the treatment, she felt better. She remained afebrile for more than 24 hours and her WBC remained normal. Blood cultures were negative. Diet was advanced to lactose restricted, low fiber which was tolerated. She is being discharged home on 11/25. She is advised to remain on a low fiber diet, to follow-up with Dr. Ivey within 2 weeks, and to follow-up with her PCP, Dr. Cutler, within 1 week. Condition: Improved - Instructions Diet, Activity, Other Instructions: Take the first dose of Metronidazole tonight. Take the first dose of Levofloxacin tomorrow morning. You may resume activity as prior to admission. Please remain on a low fiber diet until you follow-up with Dr. Ivey. Return to the ER if you experience fever, increasing pain, diarrhea, vomiting, rectal bleeding. Referrals: Ned Ivey MD [Staff Physician] - 1 Week He Abbott MD [Primary Care Provider] - 1 Week Disposition: HOME - Home Medications Comprehensive Discharge Medication List: Ambulatory Orders Albuterol 0.083% Nebulizer Marisa [Ventolin 0.083% Nebulizer Soln -] 1 amp NEB PRN 11/24/16 Albuterol Sulfate Inhaler - [Ventolin HFA Inhaler -] 1 puff IH PRN 11/24/16 Linaclotide [Linzess] 145 mcg PO DAILY 11/24/16 Omeprazole 20 mg PO DAILY 11/24/16 Bupropion HCl [Wellbutrin Xl -] 150 mg PO DAILY #1 tab 11/25/16 Levofloxacin [Levaquin] 500 mg PO DAILY #3 tablet 11/25/16 Metronidazole [Flagyl -] 500 mg PO TID #10 tablet 11/25/16 Nicotine Patch [Nicoderm Patch -] 7 mg TD DAILY patch 11/25/16 Problem List - Problems (1) Borderline type 2 diabetes mellitus Code(s): R73.03 - PREDIABETES (2) GERD (gastroesophageal reflux disease) Code(s): K21.9 - GASTRO-ESOPHAGEAL REFLUX DISEASE WITHOUT ESOPHAGITIS (3) History of throat cancer Code(s): Z85.819 - PRSNL HX OF MALIG NEOPLM OF UNSP SITE LIP,ORAL CAV,& PHARYNX (4) Nicotine dependence Code(s): F17.200 - NICOTINE DEPENDENCE, UNSPECIFIED, UNCOMPLICATED (5) Colitis Code(s): K52.9 - NONINFECTIVE GASTROENTERITIS AND COLITIS, UNSPECIFIED (6) Lung nodule, multiple Code(s): R91.8 - OTHER NONSPECIFIC ABNORMAL FINDING OF LUNG FIELD This patient is new to me today: No Emergency Visit: Yes ED Registration Date: 11/24/16 Care time: The patient presented to the Emergency Department on the above date and was hospitalized for further evaluation of their emergent condition. Critical Care patient: No - Discharge Referral Referred to [facility] No
[2016-11-25 17:01] VITALS: BP 129/72; PULSE 65
--- NOTE | 2016-11-26 13:54 | EKG ---
Test Reason : Blood Pressure : / mmHG Vent. Rate : 082 BPM Atrial Rate : 082 BPM P-R Int : 168 ms QRS Dur : 080 ms QT Int : 340 ms P-R-T Axes : 060 028 051 degrees QTc Int : 397 ms NORMAL SINUS RHYTHM NORMAL ECG WHEN COMPARED WITH ECG OF 04-APR-2006 12:31, T WAVE AMPLITUDE HAS DECREASED IN LATERAL LEADS Confirmed by KRISTINE COPE MD ([id number]) on 11/26/2016 1:54:11 PM Referred By: Confirmed By:KRISTINE COPE MD
== END 2016-11-25 18:57 | disposition home or self-care (01) ==
LOC: JER 20:20 → JERBED 11-24 07:41 → UNDOADMOB 11-24 07:47 → J8W 11-24 09:52
PROVIDERS: ADMIT Internal Medicine; ATTEND Internal Medicine
PROC: 3E03329 Introduction of Other Anti-infective into Peripheral Vein, Percutaneous Approach (ICD-10-PCS; principal; 2016-11-24)
PROC: 3E033NZ Introduction of Analgesics, Hypnotics, Sedatives into Peripheral Vein, Percutaneous Approach (ICD-10-PCS; 2016-11-24)
PROC: 3E0337Z Introduction of Electrolytic and Water Balance Substance into Peripheral Vein, Percutaneous Approach (ICD-10-PCS; 2016-11-24)
PROC: 3E033GC Introduction of Other Therapeutic Substance into Peripheral Vein, Percutaneous Approach (ICD-10-PCS; 2016-11-24)
DX: K52.9 Noninfective gastroenteritis and colitis, unspecified (principal); R73.03 Prediabetes; F17.210 Nicotine dependence, cigarettes, uncomplicated; Z85.819 Personal history of malignant neoplasm of unspecified site of lip, oral cavity, and pharynx; R91.8 Other nonspecific abnormal finding of lung field; K21.9 Gastro-esophageal reflux disease without esophagitis
CPT/HCPCS: 36415; 71010-TC; 71250-TC; 74176-TC; 80048; 80053; 81003; 81015; 82550; 82803; 83605; 83735; 84100; 84484; 85025; 85610; 85730; 86850; 86900; 86901; 87040; 87086; 93005; 93010; 99285-25; G0378

== ENCOUNTER 2017-08-27 12:47 | Observation (INO) | payer OTHER ==
[2017-08-27 12:55] VITALS: BMI 29.2
--- NOTE | 2017-08-27 14:04 | PDOC ---
History of Present Illness - General Chief Complaint: Pain Stated Complaint: ABD PAIN Time Seen by Provider: 08/27/17 13:43 - History of Present Illness Initial Comments: 08/27/17 14:05 51yo F with significant history of previous colitis/diverticulitis, throat Ca, Hemorrhoids, constipation, DM, lung nodules, and GERD hwrubi presents to the ER with a c/o LLQ pain for about 2 weeks. Pt states this episode is very similar to her previous colitis back in January 2017. Pt reports her pain lasting for 2 weeks with worsening severity. Pt states she has not been eating as much 2/2 to the pain and even today only had a little piece of fish for lung. Pt endorses constipation alongside her pain. Her last BM was normal in quality without any blood about a day ago. Pt states her pain is not affected by eating and that when she has a BM her pain does improve. Pt also endorses some chills and night sweats. Pt denies any out of the ordinary foods, nausea and vomiting, SOB, CP/discomfort, palpitations, lower extremity Edema. Past History - Past Medical History Allergies/Adverse Reactions: Allergies Allergy/AdvReac Type Severity Reaction Status Date / Time No Known Allergies Allergy Verified 08/27/17 12:55 Home Medications: Ambulatory Orders Albuterol 0.083% Nebulizer Marisa [Ventolin 0.083% Nebulizer Soln -] 1 amp NEB PRN 11/24/16 Albuterol Sulfate Inhaler - [Ventolin HFA Inhaler -] 1 puff IH PRN 11/24/16 Linaclotide [Linzess] 145 mcg PO DAILY 11/24/16 Omeprazole 20 mg PO DAILY 11/24/16 Bupropion HCl [Wellbutrin Xl -] 150 mg PO DAILY #1 tab 11/25/16 COPD: No GI Disorders: Yes (colitis) - Suicide/Smoking/Psychosocial Hx Smoking History: Current every day smoker Have you smoked in the past 12 months: Yes Number of Cigarettes Smoked Daily: 5 Information on smoking cessation initiated: Yes 'Breaking Loose' booklet given: 08/27/17 Hx Alcohol Use: Yes (beers) Drug/Substance Use Hx: Yes (Heroin) Substance Use Type: Alcohol, Heroin Hx Substance Use Treatment: No Review of Systems - Review of Systems Constitutional: Yes: Chills, Night Sweats. No: Fever HEENTM: No: Blurred Vision, Nose Congestion, Throat Pain Respiratory: No: Cough, Shortness of Breath, Wheezing Cardiac (ROS): No: Chest Pain, Edema, Lightheadedness, Palpitations ABD/GI: Yes: See HPI, Constipated, Poor Appetite. No: Diarrhea, Nausea, Vomiting, Tarry Stools : No: Dysuria, Frequency, Flank Pain, Hematuria Musculoskeletal: No: Back Pain Neurological: No: Headache, Numbness, Paresthesia Psychiatric: No: Anxiety, Depression *Physical Exam - Vital Signs Last Vital Signs Temp Pulse Resp BP Pulse Ox 98.8 F 68 18 122/73 97 08/27/17 12:53 08/27/17 12:53 08/27/17 12:53 08/27/17 12:53 08/27/17 12:53 - Physical Exam Comments: 08/27/17 13:43 GEN: Mild distress, laying in bed, awake alert and oriented x3 HEENT: Dry mucosa, EOMI, RUDY, No JVD, sclera anicteric Lung: CTA b/l no wheezes rhonchi rales noted Cardiac: RRR no murmur appreciated Abdomen: Soft, nondistended, hypoactive BS, diffusely tender with greatest pain in LLQ, voluntary guarding, slight rebound tenderness, no ecchymosis noted, prior laparoscopic scars noted Ext: No edema, 2+ DP pulses ED Treatment Course - LABORATORY CBC & Chemistry Diagram: 08/27/17 14:47 08/27/17 14:47 Medical Decision Making - Medical Decision Making 08/27/17 14:22 highly suspicious for acute colitis vs. diverticulitis --CBC, CMP, Lactate --Blood CX x2 --Pain control with morphine 4mg IVP once --CT ABd and pelvis with IV contrast (no oral) --Gentle hydration with NS@83cc/hr --UA and Urine culture to r/o any urethritis despite low on differential --PT/INR and PTT ordered with Type and Screen 08/27/17 18:55 CTAP with IV contrast performed and read --Acute noncomplicated diverticulitis and some resolution of previous colitis Contacting hospitalist group for possible admit to M/S due to recurrence of diverticulitis 08/27/17 19:[address] Grubbs and abimbola to admit to M/S *DC/Admit/Observation/Transfer Diagnosis at time of Disposition: Diverticulitis large intestine w/o perforation or abscess w/o bleeding - Discharge Dispostion Condition at time of disposition: Stable Admit: Yes - Referrals - Patient Instructions - Post Discharge Activity
[2017-08-27] MEDS ORDERED: morphine CARPU-JECT 2 MG/1 ML DISP.SYRIN IVPUSH ONE (14:30)
[2017-08-27] MEDS ORDERED: morphine CARPU-JECT 4 MG/1 ML DISP.SYRIN IVPUSH ONE (14:32)
[2017-08-27] MEDS ORDERED: SODIUM CHLORIDE 1,000 ML IV SCH ×2 (14:45→19:57)
--- NOTE | 2017-08-27 14:45 | PDOC ---
Attending Attestation - Resident Resident Name: Roldan Bañuelos - ED Attending Attestation I have performed the following: I have examined & evaluated the patient, The case was reviewed & discussed with the resident, I agree w/resident's findings & plan - HPI HPI: 08/27/17 14:43 52-year-old female with history of colitis/diverticulitis in January 2017 treated with antibiotics presents now with 2 weeks of worsening left lower quadrant pain similar to past colitis/diverticulitis. Chills but no fever, no bloody stool. - Physicial Exam PE: 08/27/17 14:44 afebrile here, vital signs normal Abdomen is soft and nondistended. Peritoneal findings with guarding in the left lower quadrant, referred pain to the left lower quadrant, and rebound. - Medical Decision Making 08/27/17 14:44 Patient seen and evaluated with the resident. I agree with the overall evaluation, assessment, and management with the following summary of visit: 52-year-old female with history of colitis/diverticulitis presents with 2 weeks of left lower quadrant pain and focal peritoneal findings consistent with recurrent diverticulitis, rule out perforation/abscess. labs, ua pain control, ivf iv abx ctap reassess
[2017-08-27] MEDS ORDERED: MORPHINE SULFATE 10 MG/1 ML *VIAL ONE (14:59)
[2017-08-27 15:07] LABS: HEMATOCRIT 36.2 % (32.4-45.2); HEMOGLOBIN 12.6 GM/dL (10.7-15.3); MCH 32.2 pg (25.7-33.7); MCHC 34.7 g/dl (32.0-36.0); MEAN CELL VOLUME 92.7 fl (80-96); MEAN PLT VOLUME 9.2 fl (7.5-11.1); PLATELET COUNT 223 K/MM3 (134-434); RBC 3.91 M/mm3 (3.60-5.2); RDW 15.4 % (11.6-15.6); WHITE BLOOD COUNT 7.9 K/mm3 (4.0-10.0)
[2017-08-27 15:08] LABS: URINE APPEARANCE CLEAR; URINE BILIRUBIN NEGATIVE (<2.0 mg/dL); URINE BLOOD 1+ (NEGATIVE); URINE COLOR LTYELLOW; URINE GLUCOSE (UA) NEGATIVE (NEGATIVE); URINE KETONE NEGATIVE (NEGATIVE); URINE LEUK ESTERASE NEGATIVE (NEGATIVE); URINE NITRITE NEGATIVE (NEGATIVE); URINE PROTEIN NEGATIVE (NEGATIVE); URINE UROBILINOGEN NEGATIVE mg/dL (0.2-1.0)
[2017-08-27 15:16] LABS: URINE MUCUS RARE
[2017-08-27 15:33] LABS: ALBUMIN 3.3 g/dl (3.4-5.0); ANION GAP 6 (8-16); BLOOD UREA NITROGEN 12 mg/dL (7-18); CALCIUM 8.3 mg/dL (8.5-10.1); CHLORIDE 110 mmol/L (98-107); CO2 28 mmol/L (21-32); CREATININE 0.6 mg/dL (0.55-1.02); GLUCOSE,RANDOM 116 mg/dL (74-106); POTASSIUM 4.1 mmol/L (3.5-5.1); SGOT/AST 14 U/L (15-37); SGPT/ALT 18 U/L (12-78); SODIUM 144 mmol/L (136-145)
[2017-08-27 15:39] LABS: ALK PHOS 80 U/L (45-117); BILIRUBIN,TOTAL 0.4 mg/dL (0.2-1.0); TOT PROT 6.8 g/dl (6.4-8.2)
[2017-08-27 16:25] LABS: INR 0.92 (0.82-1.09); PROTHROMBIN TIME (PATIENT) 10.4 SEC (9.98-11.88)
[2017-08-27 16:27] LABS: ACTIVATED PTT 28.7 SECONDS (26.9-34.4)
[2017-08-27] MEDS ORDERED: levoFLOXacin 750 MG TABLET PO ONE (18:12)
[2017-08-27] MEDS ORDERED: metroNIDAZOLE 250 MG TABLET PO ONE (18:12)
[2017-08-27] MEDS ORDERED: metroNIDAZOLE 250 MG TABLET ONE (18:54)
--- NOTE | 2017-08-27 19:40 | PN ---
Teaching Attending Note Name of Resident: Michael Tomlin ATTENDING PHYSICIAN STATEMENT I saw and evaluated the patient. I reviewed the resident's note and discussed the case with the resident. I agree with the resident's findings and plan as documented. SUBJECTIVE: 52 F with hx. of colitis/diverticulitis 02/03 who presents with left lower quadrant pain. States pain is similar to past colitis/diverticultis. Denies any fever. States she is constipated. Denies any diarrhea. States pain improves with BMs. States she is able to tolerate liquids OBJECTIVE: Physical: VS: Vital Signs Period Temp Pulse Resp BP Sys/Dudley Pulse Ox Last 24 Hr 98.7 F-98.8 F 68-82 16-18 122-140/73-76 97-99 GEN: NAD, Resting in bed, AA0X3 HEENT: NCAT, PERRL, Throat without erythema or exudates CARD: RRR S1, S2 RESP: CTAB ABD: BSx4, NTD to palpation EXT: - C/C/E CBCD WBC 7.9 K/mm3 (4.0-10.0) D 08/27/17 14:47 RBC 3.91 M/mm3 (3.60-5.2) 08/27/17 14:47 Hgb 12.6 GM/dL (10.7-15.3) D 08/27/17 14:47 Hct 36.2 % (32.4-45.2) 08/27/17 14:47 MCV 92.7 fl (80-96) 08/27/17 14:47 MCHC 34.7 g/dl (32.0-36.0) 08/27/17 14:47 RDW 15.4 % (11.6-15.6) 08/27/17 14:47 Plt Count 223 K/MM3 (134-434) D 08/27/17 14:47 MPV 9.2 fl (7.5-11.1) 08/27/17 14:47 CMP Sodium 144 mmol/L (136-145) 08/27/17 14:47 Potassium 4.1 mmol/L (3.5-5.1) 08/27/17 14:47 Chloride 110 mmol/L (98-107) H 08/27/17 14:47 Carbon Dioxide 28 mmol/L (21-32) 08/27/17 14:47 Anion Gap 6 (8-16) L 08/27/17 14:47 BUN 12 mg/dL (7-18) 08/27/17 14:47 Creatinine 0.6 mg/dL (0.55-1.02) 08/27/17 14:47 Creat Clearance w eGFR > 60 (>60) 08/27/17 14:47 Random Glucose 116 mg/dL (74-106) H 08/27/17 14:47 Calcium 8.3 mg/dL (8.5-10.1) L 08/27/17 14:47 Total Bilirubin 0.4 mg/dL (0.2-1.0) D 08/27/17 14:47 AST 14 U/L (15-37) L 08/27/17 14:47 ALT 18 U/L (12-78) 08/27/17 14:47 Alkaline Phosphatase 80 U/L (45-117) 08/27/17 14:47 Total Protein 6.8 g/dl (6.4-8.2) 08/27/17 14:47 Albumin 3.3 g/dl (3.4-5.0) L 08/27/17 14:47 CT ABD/Pelvis: Acute Uncomplicated Divericultits Ambulatory Orders Albuterol 0.083% Nebulizer Marisa [Ventolin 0.083% Nebulizer Soln -] 1 amp NEB PRN 11/24/16 Albuterol Sulfate Inhaler - [Ventolin HFA Inhaler -] 1 puff IH PRN 11/24/16 Linaclotide [Linzess] 145 mcg PO DAILY 11/24/16 Omeprazole 20 mg PO DAILY 11/24/16 Bupropion HCl [Wellbutrin Xl -] 150 mg PO DAILY #1 tab 11/25/16 ASSESSMENT AND PLAN: 52 F with Diverticulitis 1.) Acute Uncomplicated Diverticutitis - Clear liquid diet - IF tolerating can switch to PO abx tomorrow - S/P Levaquin/Flagyl 2.) IBS - C/W Linzess 3.) Dvt Ppx - Less [address] in Obs Med-Sx
[2017-08-27] MEDS ORDERED: morphine SULFATE 4 MG/ML VIAL IVPUSH PRN (19:52)
[2017-08-27] MEDS ORDERED: SENNOSIDES/DOCUSATE COMBO (SENNA PLUS) TABLET (UD) PO PRN (20:19)
--- NOTE | 2017-08-27 20:19 | HP ---
CHIEF COMPLAINT: Abdominal pain PCP: None HISTORY OF PRESENT ILLNESS: 52yo F with PMhx of prior diverticulitis who presents with 3 wks of worsening LLQ pain. Pt has a history of constipation and poor diet. Pt was treated at [facility] 2 years ago for diverticulitis, received outpatient colonoscopy by Dr Ivey, but did not followup after that. Pt is poorly compliant with meds and diet. Pt also has history of drug abuse (last used heroin this AM), lives alone , and has many social stressors. Denies diarrhea, nausea, vomiting, fever, chills, CP, SOB. In the ER, pt was afebrile, VSS. She was given IV morphine 4mg which completely relieved her pain. CT abd with contrast shows acute uncomplicated sigmoid diverticulitis w/ fecal retention. No leukocytosis. Labs are essentially wnl. Pt was seen leaving the ER to eat/drink. Recent Travel: Denies PAST MEDICAL HISTORY: GERD, Diverticulitis, Constipation PAST SURGICAL HISTORY: None Social History: Smoking: Yes. 0.5-1ppd Alcohol: Yes. Did not specify Drugs: Yes. Heroine, Cocaine Allergies: No Known Allergies Allergy (Verified 08/27/17 12:55) HOME MEDICATIONS: Home Medications Medication Instructions Recorded Albuterol 0.083% Nebulizer Marisa 1 amp NEB PRN 11/24/16 [Ventolin 0.083% Nebulizer Soln -] Albuterol Sulfate Inhaler - 1 puff IH PRN 11/24/16 [Ventolin HFA Inhaler -] Linaclotide [Linzess] 145 mcg PO DAILY 11/24/16 Omeprazole 20 mg PO DAILY 11/24/16 Bupropion HCl [Wellbutrin Xl -] 150 mg PO DAILY #1 tab 11/25/16 REVIEW OF SYSTEMS CONSTITUTIONAL: Absent: fever, chills, diaphoresis, generalized weakness, malaise, loss of appetite, weight change HEENT: Absent: rhinorrhea, nasal congestion, throat pain, throat swelling, difficulty swallowing, mouth swelling, ear pain, eye pain, visual changes CARDIOVASCULAR: Absent: chest pain, syncope, palpitations, irregular heart rate , lightheadedness, peripheral edema RESPIRATORY: Absent: cough, shortness of breath, dyspnea with exertion, orthopnea, wheezing, stridor, hemoptysis GASTROINTESTINAL: +abdominal pain, +constipation. No abdominal distension, nausea, vomiting, diarrhea, melena, hematochezia GENITOURINARY: Absent: dysuria, frequency, urgency, hesitancy, hematuria, flank pain, genital pain MUSCULOSKELETAL: Absent: myalgia, arthralgia, joint swelling, back pain, neck pain SKIN: Absent: rash, itching, pallor HEMATOLOGIC/IMMUNOLOGIC: Absent: easy bleeding, easy bruising, lymphadenopathy, frequent infections ENDOCRINE:Absent: unexplained weight gain, unexplained weight loss, heat intolerance, cold intolerance NEUROLOGIC: Absent: headache, focal weakness or paresthesias, dizziness, unsteady gait, seizure, mental status changes, bladder or bowel incontinence PSYCHIATRIC: Absent: anxiety, depression, suicidal or homicidal ideation, hallucinations. PHYSICAL EXAMINATION Vital Signs Period Temp Pulse Resp BP Sys/Dudley Pulse Ox Last 24 Hr 98.7 F-98.8 F 68-82 16-18 122-140/73-76 97-99 GEN: AAOx3, NAD, Drinking coffee, anxious in her speech HEENT: PERRLA, EOMi CV: S1, S2, RRR LUNG: CTABL ABD: Soft, NT, ND (no pain since administration of morphine) MSK: NO edema, no erythema NEURO: CN 2-12 intact, no msk or sensation deficits ASSESSMENT/PLAN: 52yo F with PMhx of prior diverticulitis who presents with 3 wks of LLQ pain, found to have uncomplicated sigmoid diverticulitis. # Sigmoid diverticulitis (uncomplicated) -- Likely secondary to chronic constipation and poor diet. Has not followed up with GI. Able to tolerate clear liquid diet. IV Rocephin 2g QD + Flagyl 500 Q8H for now but anticipate switching to PO abx tmrw. Will consult patient's GI Dr Ivey. Pain control w/ Morphine prn # Heroin Abuse -- Last used this AM. Not interested in rehab. Awaiting Utox. Consider methadone taper # Constipation -- Laxatives prn # MDD -- Continue Welbutrin 150 daily # Pleural Plaques -- More prominent compared to 2017. Need interval followup. # FEN/PPx -- Clear liquid diet. Lovenox # Dispo -- Observation Case d/w Dr Grubbs and Dr Moran Morning team to take over in AM Michael Tomlin MD - PGY1 [employer] Branch Chief Visit type - Emergency Visit Emergency Visit: Yes ED Registration Date: 08/27/17 Care time: The patient presented to the Emergency Department on the above date and was hospitalized for further evaluation of their emergent condition. - New Patient This patient is new to me today: Yes Date on this admission: 08/28/17 - Critical Care Critical Care patient: No Hospitalist Screening - Colonoscopy Questionnaire Colonoscopy Questionnaire: Colonoscopy Questionnaire - Patient: 50 - 75 years old and never had a screening colonoscopy: Yes History of colon or rectal polyps, or CA: Yes History of IBD, Crohn's disease or UC: No History of abdominal radiation therapy as a child: No - Relative: 1 with colon or rectal CA, or polyps at age 60 or younger: Unknown Colon or rectal CA diagnosed at age 45 or younger: Unknown Multiple relatives with colon or rectal CA: Unknown - Outcome: Screening Result: Positive Screen
[2017-08-28] MEDS ORDERED: morphine SULFATE 4 MG/ML VIAL ONE (01:24)
[2017-08-28] MEDS ORDERED: MORPHINE SULFATE 10 MG/1 ML *VIAL ONE (03:47)
[2017-08-28] MEDS ORDERED: KETOROLAC TROMETHAMINE 15 MG/ML VIAL IVPUSH PRN (08:10)
[2017-08-28 09:06] LABS: HEMATOCRIT 35.3 % (32.4-45.2); MCH 31.8 pg (25.7-33.7); MCHC 34.1 g/dl (32.0-36.0); MEAN CELL VOLUME 93.3 fl (80-96); MEAN PLT VOLUME 9.6 fl (7.5-11.1); PLATELET COUNT 216 K/MM3 (134-434); RBC 3.78 M/mm3 (3.60-5.2); RDW 15.3 % (11.6-15.6); WHITE BLOOD COUNT 6.7 K/mm3 (4.0-10.0)
[2017-08-28 09:34] LABS: CALCIUM 8.2 mg/dL (8.5-10.1); CHLORIDE 111 mmol/L (98-107); POTASSIUM 3.7 mmol/L (3.5-5.1); SODIUM 143 mmol/L (136-145)
[2017-08-28 09:39] LABS: ALBUMIN 3.1 g/dl (3.4-5.0); ALK PHOS 76 U/L (45-117); ANION GAP 7 (8-16); BILIRUBIN,TOTAL 0.4 mg/dL (0.2-1.0); BLOOD UREA NITROGEN 9 mg/dL (7-18); CO2 25 mmol/L (21-32); CREATININE 0.7 mg/dL (0.55-1.02); GLUCOSE,RANDOM 93 mg/dL (74-106); MAGNESIUM 1.9 mg/dL (1.8-2.4); PHOSPHOROUS 2.9 mg/dL (2.5-4.9); SGOT/AST 16 U/L (15-37); SGPT/ALT 19 U/L (12-78); TOT PROT 6.6 g/dl (6.4-8.2)
[2017-08-28] MEDS ORDERED: CEFTRIAXONE 2 GM in DEXTROSE 5%-WATER 100 ML IVPB SCH (10:00)
[2017-08-28] MEDS ORDERED: PANTOPRAZOLE 20 MG TABLET (FP) PO SCH (10:00)
[2017-08-28] MEDS ORDERED: ENOXAPARIN NA (PORCINE) 40 MG/0.4 ML DISP.SYRIN SQ SCH (10:00)
[2017-08-28] MEDS ORDERED: CEFTRIAXONE 2 GM/100 ML BAG IVPB ONE (10:05)
--- NOTE | 2017-08-28 14:49 | PN ---
Teaching Attending Note Name of Resident: Eli Ruelas ATTENDING PHYSICIAN STATEMENT I saw and evaluated the patient. I reviewed the resident's note and discussed the case with the resident. I agree with the resident's findings and plan as documented with exceptions below. SUBJECTIVE: patient seen and examined. ambulating in hallway, pain improved. no nausea/ vomiting or new complaints. OBJECTIVE: Vital Signs Period Temp Pulse Resp BP Sys/Dudley Pulse Ox Last 24 Hr 98.3 F-98.7 F 51-82 16-17 118-140/76-78 99-100 Intake & Output 08/25/17 08/26/17 08/27/17 08/28/17 23:59 23:59 23:59 23:59 Weight 165 lb general: ambulating in hallways with no concerns Abdomen: soft, mild LLQ tenderness, no voluntary or involuntary guarding or rigidity, positive bowel sounds, ND Home Medication List Medication Instructions Recorded Confirmed Type Albuterol 0.083% Nebulizer Marisa 1 amp NEB PRN 11/24/16 08/27/17 History [Ventolin 0.083% Nebulizer Soln -] Albuterol Sulfate Inhaler - 1 puff IH PRN 11/24/16 08/27/17 History [Ventolin HFA Inhaler -] Linaclotide [Linzess] 145 mcg PO DAILY 11/24/16 08/27/17 History Omeprazole 20 mg PO DAILY 11/24/16 08/27/17 History Active Medications Generic Name Dose Route Start Last Admin Trade Name Freq PRN Reason Stop Dose Admin Bupropion HCl 150 mg 08/28/17 10:00 08/28/17 10:04 Wellbutrin Xl - PO 150 mg DAILY WYATT Administration Enoxaparin Sodium 40 mg 08/28/17 10:00 08/28/17 10:12 Lovenox - SQ 40 mg DAILY WYATT Administration Metronidazole 500 mg in 100 mls @ 100 mls/hr 08/28/17 02:00 08/28/17 10:05 Flagyl 500mg Premixed Ivpb - IVPB 100 mls/hr Q8H-IV WYATT Administration Ceftriaxone Sodium 2 gm/ 100 mls @ 200 mls/hr 08/28/17 10:00 08/28/17 10:30 Dextrose IVPB 200 mls/hr DAILY WYATT Administration Ketorolac Tromethamine 15 mg 08/28/17 08:10 Toradol Injection - IVPUSH 09/02/17 08:09 Q6H PRN PAIN LEVEL 6-10 Pantoprazole Sodium 20 mg 08/28/17 10:00 08/28/17 10:04 Protonix - PO 20 mg DAILY WYATT Administration Senna/Docusate Sodium 2 tablet 08/27/17 20:19 Pericolace - PO HS PRN CONSTIPATION Laboratory Results - last 24 hr 08/27/17 08/27/17 08/27/17 14:47 14:47 14:47 WBC 7.9 D RBC 3.91 Hgb 12.6 D Hct 36.2 MCV 92.7 MCH 32.2 MCHC 34.7 RDW 15.4 Plt Count 223 D MPV 9.2 PT with INR INR PTT (Actin FS) Sodium 144 Potassium 4.1 Chloride 110 H Carbon Dioxide 28 Anion Gap 6 L BUN 12 Creatinine 0.6 Creat Clearance w eGFR > 60 Random Glucose 116 H Lactic Acid 1.1 Calcium 8.3 L Phosphorus Magnesium Total Bilirubin 0.4 D AST 14 L ALT 18 Alkaline Phosphatase 80 Total Protein 6.8 Albumin 3.3 L Urine Color Urine Appearance Urine pH Ur Specific Kent Urine Protein Urine Glucose (UA) Urine Ketones Urine Blood Urine Nitrite Urine Bilirubin Urine Urobilinogen Ur Leukocyte Esterase Urine WBC (Auto) Urine RBC (Auto) Urine Mucus Blood Type Antibody Screen 08/27/17 08/27/17 08/27/17 14:50 15:33 15:33 WBC RBC Hgb Hct MCV MCH MCHC RDW Plt Count MPV PT with INR 10.40 INR 0.92 PTT (Actin FS) 28.7 Sodium Potassium Chloride Carbon Dioxide Anion Gap BUN Creatinine Creat Clearance w eGFR Random Glucose Lactic Acid Calcium Phosphorus Magnesium Total Bilirubin AST ALT Alkaline Phosphatase Total Protein Albumin Urine Color Ltyellow Urine Appearance Clear Urine pH 5.0 Ur Specific Kent 1.011 Urine Protein Negative Urine Glucose (UA) Negative Urine Ketones Negative Urine Blood 1+ H Urine Nitrite Negative Urine Bilirubin Negative Urine Urobilinogen Negative Ur Leukocyte Esterase Negative Urine WBC (Auto) 1 Urine RBC (Auto) <1 Urine Mucus Rare Blood Type O POSITIVE Antibody Screen Negative 08/28/17 08/28/17 08:08 08:08 WBC 6.7 RBC 3.78 Hgb 12.0 Hct 35.3 MCV 93.3 MCH 31.8 MCHC 34.1 RDW 15.3 Plt Count 216 MPV 9.6 PT with INR INR PTT (Actin FS) Sodium 143 Potassium 3.7 Chloride 111 H Carbon Dioxide 25 Anion Gap 7 L BUN 9 Creatinine 0.7 Creat Clearance w eGFR > 60 Random Glucose 93 Lactic Acid Calcium 8.2 L Phosphorus 2.9 Magnesium 1.9 Total Bilirubin 0.4 AST 16 ALT 19 Alkaline Phosphatase 76 Total Protein 6.6 Albumin 3.1 L Urine Color Urine Appearance Urine pH Ur Specific Kent Urine Protein Urine Glucose (UA) Urine Ketones Urine Blood Urine Nitrite Urine Bilirubin Urine Urobilinogen Ur Leukocyte Esterase Urine WBC (Auto) Urine RBC (Auto) Urine Mucus Blood Type Antibody Screen CT A/P results reviewed. ASSESSMENT AND PLAN: 52 yof with prior colitis/diverticulitis in 01/2017 here with acute uncomplicated sigmoid diverticulitis -Acute uncomplicated sigmoid diverticulitis -polysubstance use -Constipation -Lung nodules Plan: Tolerating diet. no fevers, leucocytosis or abdominal concerns. levaquin/flagyl x 10 days, lactose restricted low fiber diet till symptoms resolve, then high fiber with bowel regimen. Outpatient colonscopy in 6-8 weeks. Drug cessation counseling as heroin with risk for constipation CT chest in 2 months to assess and follow up lung nodules. Plan discussed with patient in detail, all questions answered. d/c home with outpatient follow up.
[2017-08-28 16:09] VITALS: BP 126/93; PULSE 53; TEMP 98.2
--- NOTE | 2017-08-28 18:00 | DS ---
Physical Exam: SUBJECTIVE: Patient seen and examined REsitn in bed comfortably, NAD, afebrile, hemodynamically stable. mild LLQ tenderness resolved, ambulating in hallway, denies n/v/d. denies f/c. OBJECTIVE: Vital Signs Period Temp Pulse Resp BP Sys/Dudley Pulse Ox Last 24 Hr 98.2 F-98.7 F 51-82 16-18 118-140/76-93 99-100 PHYSICAL EXAM GENERAL: The patient is awake, alert, and fully oriented, in no acute distress. HEAD: Normal with no signs of trauma. EYES: PERRL, extraocular movements intact, sclera anicteric, conjunctiva clear. ENT: moist mucous membranes. NECK: supple. LUNGS: Breath sounds equal, clear to auscultation bilaterally HEART: Regular rate and rhythm, S1, S2 ABDOMEN: Soft, nontender, nondistended, normoactive bowel sounds, no guarding, no rebound, no masses. EXTREMITIES: 2+ pulses, warm, well-perfused, no edema. NEUROLOGICAL: Cranial nerves II through XII grossly intact. Normal speech PSYCH: Normal mood, normal affect. SKIN: Warm, dry LABS Laboratory Results - last 24 hr 08/28/17 08/28/17 08:08 08:08 WBC 6.7 RBC 3.78 Hgb 12.0 Hct 35.3 MCV 93.3 MCH 31.8 MCHC 34.1 RDW 15.3 Plt Count 216 MPV 9.6 Sodium 143 Potassium 3.7 Chloride 111 H Carbon Dioxide 25 Anion Gap 7 L BUN 9 Creatinine 0.7 Creat Clearance w eGFR > 60 Random Glucose 93 Calcium 8.2 L Phosphorus 2.9 Magnesium 1.9 Total Bilirubin 0.4 AST 16 ALT 19 Alkaline Phosphatase 76 Total Protein 6.6 Albumin 3.1 L HOSPITAL COURSE: Date of Admission:08/27/17 This is a 52yo F with PMH of prior diverticulitis, who presents with 3 wks of worsening LLQ pain. Pt has a history of constipation due to opioid abuse and poor diet. Pt was treated at [facility] 2 years ago for diverticulitis, received outpatient colonoscopy by Dr Ivey, but did not followup after that. Pt is poorly compliant with meds and diet. Last heroin use reported 12 hr before admission. On presentation she was afebrile and hemodynamically stable, w /o leukocytosis, but with moderate LLQ pain. CT abd/pelvis showed evidence of acute uncomplicated sigmoid diverticulitis w/ fecal retention. Patient was admitted and treated with IV levaquin/flagyl and morphine overnight. By the afternoon her pain resolved and she tolerated regular diet. She was discharged home on levaquin/flagyl x 10 days, lactose restricted low fiber diet till symptoms resolve, then high fiber with bowel regimen. She reclined opiate rehab referral. She was instructed to f/u with pulm for a chest CT in 2 months to assess and lung nodules found incidentally on admission imaging. Date of Discharge: 08/28/17 Minutes to complete discharge: 45 Discharge Summary Reason For Visit: DIVERTICULITIS OF LG INTESTINE W/O PERFO Condition: Stable - Instructions Diet, Activity, Other Instructions: You were admitted to the hospital for abdominal pain and found to have diverticulitis in your large intestine. You were started on antibiotics. Recommendations: -Please follow a lactose free and low fiber diet until your symptoms resolve. You should then follow a high fiber diet and Miralax (over the counter medication) to avoid constipation. Please see the educational handouts in included in your discharge packet. -Strongly advise heroin cessation as this can cause constipation and recurrent attacks of diverticulitis. Please contact [facility] at for further information on drug rehabiliation programs available. Medications: Continue to take all your home medications as directed by your physicians with the following additions: 1) Take Levaquin 500mg daily for 10 more days. Your first dose will be tomorrow morning, and your last dose will be on 09/07. 2) Take Flagyl 500mg three times per day with food (breakfast, lunch, and dinner ) for 10 more days. Your first dose will later this evening, and your last dose will on 09/07 in the evening. Do not drink alcohol while on this medication. Follow-ups: -Make an appointment to see Dr. Ivey, your Package Dye Stand Loader (stomach doctor ) after in 2 weeks after you have completed your antibiotic course. You should have colonoscopy performed in 6-8weeks. -Make an appointment to see your primary care physician in 1-2 weeks for post- hospitalization evaluation. -You have been found with lung nodules that will need close monitoring and follow up with your primary care physician. It is very important that you have a Chest CT in 2 months. Delay in follow-up of this nodule can result in potential late diagnosis of cancer. Please return to the Emergency Department if you have fever, chills, worsening abdominal pain, or any new or concerning symptoms. Referrals: Jj Hwang MD [Staff Physician] - Ned Ivey MD [Staff Physician] - Disposition: HOME - Home Medications Comprehensive Discharge Medication List: Ambulatory Orders Albuterol 0.083% Nebulizer Marisa [Ventolin 0.083% Nebulizer Soln -] 1 amp NEB PRN 11/24/16 Albuterol Sulfate Inhaler - [Ventolin HFA Inhaler -] 1 puff IH PRN 11/24/16 Linaclotide [Linzess] 145 mcg PO DAILY 11/24/16 Omeprazole 20 mg PO DAILY 11/24/16 Bupropion HCl [Wellbutrin Xl -] 150 mg PO DAILY #1 tab 11/25/16 levoFLOXacin [Levaquin -] 500 mg PO DAILY #10 tablet 08/28/17 metroNIDAZOLE [Flagyl -] 500 mg PO TID #30 tablet 08/28/17 Problem List - Problems (1) Opioid abuse Code(s): F11.10 - OPIOID ABUSE, UNCOMPLICATED (2) Colitis Code(s): K52.9 - NONINFECTIVE GASTROENTERITIS AND COLITIS, UNSPECIFIED (3) Diverticulitis large intestine w/o perforation or abscess w/o bleeding Code(s): K57.32 - DVTRCLI OF LG INT W/O PERFORATION OR ABSCESS W/O BLEEDING (4) Borderline type 2 diabetes mellitus Code(s): R73.03 - PREDIABETES (5) GERD (gastroesophageal reflux disease) Code(s): K21.9 - GASTRO-ESOPHAGEAL REFLUX DISEASE WITHOUT ESOPHAGITIS (6) History of throat cancer Code(s): Z85.819 - PRSNL HX OF MALIG NEOPLM OF UNSP SITE LIP,ORAL CAV,& PHARYNX (7) Lung nodule, multiple Code(s): R91.8 - OTHER NONSPECIFIC ABNORMAL FINDING OF LUNG FIELD (8) Nicotine dependence Code(s): F17.200 - NICOTINE DEPENDENCE, UNSPECIFIED, UNCOMPLICATED This patient is new to me today: Yes Date on this admission: 08/28/17 Emergency Visit: Yes ED Registration Date: 08/27/17 Care time: The patient presented to the Emergency Department on the above date and was hospitalized for further evaluation of their emergent condition. Critical Care patient: No - Discharge Referral Referred to [facility] Med [facility] No
== END 2017-08-28 16:00 | disposition home or self-care (01) ==
LOC: JER 12:47 → JERBED 19:10 → INTOOBSV 19:10
PROVIDERS: ADMIT Internal Medicine; ATTEND Hospitalist
PROC: 3E033NZ Introduction of Analgesics, Hypnotics, Sedatives into Peripheral Vein, Percutaneous Approach (ICD-10-PCS; principal; 2017-08-27)
PROC: 3E03329 Introduction of Other Anti-infective into Peripheral Vein, Percutaneous Approach (ICD-10-PCS; 2017-08-27)
PROC: 3E0337Z Introduction of Electrolytic and Water Balance Substance into Peripheral Vein, Percutaneous Approach (ICD-10-PCS; 2017-08-27)
PROC: 3E013GC Introduction of Other Therapeutic Substance into Subcutaneous Tissue, Percutaneous Approach (ICD-10-PCS; 2017-08-27)
DX: K57.32 Diverticulitis of large intestine without perforation or abscess without bleeding (principal); K58.9 Irritable bowel syndrome, unspecified; F11.10 Opioid abuse, uncomplicated; K59.00 Constipation, unspecified; F33.9 Major depressive disorder, recurrent, unspecified; J92.9 Pleural plaque without asbestos; Z85.818 Personal history of malignant neoplasm of other sites of lip, oral cavity, and pharynx; K64.8 Other hemorrhoids; R91.1 Solitary pulmonary nodule; K21.9 Gastro-esophageal reflux disease without esophagitis; Z87.19 Personal history of other diseases of the digestive system; F17.210 Nicotine dependence, cigarettes, uncomplicated
CPT/HCPCS: 36415; 74177-TC; 80053; 81003; 81015; 83605; 83735; 84100; 85027; 85610; 85730; 86850; 86900; 86901; 87040; 87086; 96372; 96374; 99285-25; G0378; J7030

== ENCOUNTER 2017-09-28 21:32 | Emergency (ER) | payer OTHER ==
[2017-09-28] MEDS ORDERED: NALOXONE HCL 0.4 MG/ML VIAL ONE ×2 (21:36)
--- NOTE | 2017-09-28 21:39 | PDOC ---
History of Present Illness - General Stated Complaint: intox ? drug Time Seen by Provider: 09/28/17 21:37 History Source: Patient Exam Limitations: No Limitations - History of Present Illness Initial Comments: 09/29/17 00:06 52-year-old female biba after finding patient in the city bus. EMS gave patient Narcan prior to arrival to the ER. Patient is alert and oriented 3. Patient has no complaints. Patient denies headache, dizziness, lightheadedness, visual disturbance, facial pains, area, sore throat, neck pains, neck stiffness, back pains, chest pain, abdominal pains, flank pains, urinary symptoms, extremity numbness or tingling sensation. Past History - Past Medical History Allergies/Adverse Reactions: Allergies Allergy/AdvReac Type Severity Reaction Status Date / Time No Known Allergies Allergy Verified 08/27/17 12:55 Home Medications: Ambulatory Orders Albuterol 0.083% Nebulizer Marisa [Ventolin 0.083% Nebulizer Soln -] 1 amp NEB PRN 11/24/16 Albuterol Sulfate Inhaler - [Ventolin HFA Inhaler -] 1 puff IH PRN 11/24/16 Linaclotide [Linzess] 145 mcg PO DAILY 11/24/16 Omeprazole 20 mg PO DAILY 11/24/16 Bupropion HCl [Wellbutrin Xl -] 150 mg PO DAILY #1 tab 11/25/16 COPD: No GI Disorders: Yes (colitis) - Suicide/Smoking/Psychosocial Hx Smoking History: Current every day smoker Have you smoked in the past 12 months: Yes Number of Cigarettes Smoked Daily: 5 'Breaking Loose' booklet given: 08/27/17 Hx Alcohol Use: Yes (beers) Drug/Substance Use Hx: Yes (Heroin) Substance Use Type: Alcohol, Heroin Hx Substance Use Treatment: No Review of Systems - Review of Systems Able to Perform ROS?: Yes Comments:: 09/29/17 00:07 CONSTITUTIONAL: Absent: fever, chills, diaphoresis, generalized weakness, malaise, loss of appetite HEENT: Absent: rhinorrhea, nasal congestion, throat pain, throat swelling, difficulty swallowing, mouth swelling, ear pain, eye pain, visual Changes CARDIOVASCULAR: Absent: chest pain, loss of consciousness, palpitations, irregular heart rate, peripheral edema RESPIRATORY: Absent: cough, shortness of breath, dyspnea with exertion, orthopnea, wheezing, stridor, hemoptysis GASTROINTESTINAL: Absent: abdominal pain, abdominal distension, nausea, vomiting, diarrhea, constipation, melena, hematochezia GENITOURINARY: Absent: dysuria, frequency, urgency, hesitancy, hematuria, flank pain, genital pain MUSCULOSKELETAL: Absent: myalgia, arthralgia, joint swelling SKIN: Absent: rash, itching, pallor HEMATOLOGIC/IMMUNOLOGIC: Absent: easy bleeding, easy bruising, lymphadenopathy, frequent infections ENDOCRINE: Absent: unexplained weight gain, unexplained weight loss, heat intolerance, cold intolerance NEUROLOGIC: Absent: headache, focal weakness or paresthesias, dizziness, unsteady gait, seizure, mental status changes, bladder or bowel incontinence PSYCHIATRIC: Absent: anxiety, depression, suicidal or homicidal ideation, hallucinations. Is the patient limited Kosovan proficient: No *Physical Exam - Physical Exam Comments: 09/29/17 00:07 GENERAL: Well developed, well nourished. Awake and alert. No acute distress. HEENT: Normocephalic, atraumatic. PERRLA, EOMI. No conjunctival pallor. Sclera are non- icteric. Moist mucous membranes. Oropharynx is clear. NECK: Supple. Full ROM. No JVD. Carotid pulses 2+ and symmetric, without bruits. No thyromegaly. No lymphadenopathy. CARDIOVASCULAR: Regular rate and rhythm. No murmurs, rubs, or gallops. Distal pulses are 2+ and symmetric. PULMONARY: No evidence of respiratory distress. Lungs clear to auscultation bilaterally. No wheezing, rales or rhonchi. ABDOMINAL: Soft. Non-tender. Non-distended. No rebound or guarding. No organomegaly. Normoactive bowel sounds. MUSCULOSKELETAL Normal range of motion at all joints. No bony deformities or tenderness. No CVA tenderness. EXTREMITIES: No cyanosis. No clubbing. No edema. No calf tenderness. SKIN: Warm and dry. Normal capillary refill. No rashes. No jaundice. NEUROLOGICAL: Alert, awake, appropriate. Cranial nerves 2-12 intact. No deficits to light touch and temperature in face, upper extremities and lower extremities. No motor deficits in the in face, upper extremities and lower extremities. Normoreflexic in the upper and lower extremities. Normal speech. Toes are down- going bilaterally. Gait is normal without ataxia. PSYCHIATRIC: Cooperative. Good eye contact. Appropriate mood and affect. ED Treatment Course - LABORATORY CBC & Chemistry Diagram: 09/28/17 21:43 09/28/17 21:43 *DC/Admit/Observation/Transfer Diagnosis at time of Disposition: Opioid use - Discharge Dispostion Disposition: HOME Condition at time of disposition: Stable Decision to Admit order: No - Referrals Referrals: Edvin Lu MD [Staff Physician] - - Patient Instructions Printed Discharge Instructions: Drug Abuse and Drug Addiction Additional Instructions: Follow-up with your physician or the one listed on your discharge this week Rest Increase fluids Return back to the ER for any concerns - Post Discharge Activity
--- NOTE | 2017-09-28 21:42 | PDOC ---
*Physical Exam - Vital Signs Last Vital Signs Temp Pulse Resp BP Pulse Ox 98 F 94 H 18 112/79 95 09/28/17 21:33 09/28/17 21:33 09/28/17 21:33 09/28/17 21:33 09/28/17 21:33 ED Treatment Course - LABORATORY CBC & Chemistry Diagram: 09/28/17 21:43 09/28/17 21:43 Medical Decision Making - Medical Decision Making 09/29/17 01:06 Ms Coffey is a 52 yo F brought in to the ER via EMS Apparently she was found on a city bus somnolent She was given Narcan with improvement in her mental status Since arrival to the ER, pt has been difficult to interview She does deny chest pain, abdominal pain, headache Pt seen by Midlevel Provider under my direct supervision Pt interviewed and examined Ancillary studies reviewed I agree with plan as outlined by Midlevel Provider *DC/Admit/Observation/Transfer Diagnosis at time of Disposition: Opioid use - Discharge Dispostion Disposition: HOME Condition at time of disposition: Stable - Referrals Referrals: Edvin Lu MD [Staff Physician] - - Patient Instructions Printed Discharge Instructions: Drug Abuse and Drug Addiction Additional Instructions: Follow-up with your physician or the one listed on your discharge this week Rest Increase fluids Return back to the ER for any concerns - Post Discharge Activity
[2017-09-28 21:43] VITALS: TEMP 98; BMI 26.5
[2017-09-28 22:03] LABS: BASO % 0.2 % (0-2.0); EOS % 0.7 % (0-4.5); HEMATOCRIT 35.1 % (32.4-45.2); HEMOGLOBIN 12.2 GM/dL (10.7-15.3); LYMPH % 9.9 % (8-40); MCH 32.6 pg (25.7-33.7); MCHC 34.7 g/dl (32.0-36.0); MEAN CELL VOLUME 93.8 fl (80-96); MEAN PLT VOLUME 8.9 fl (7.5-11.1); MONO % 5.7 % (3.8-10.2); NEUT % 83.5 % (42.8-82.8); PLATELET COUNT 211 K/MM3 (134-434); RBC 3.74 M/mm3 (3.60-5.2); RDW 14.9 % (11.6-15.6); WHITE BLOOD COUNT 14.3 K/mm3 (4.0-10.0)
[2017-09-28 22:24] LABS: ALBUMIN 3.6 g/dl (3.4-5.0); ANION GAP 9 (8-16); BLOOD UREA NITROGEN 10 mg/dL (7-18); CALCIUM 7.9 mg/dL (8.5-10.1); CHLORIDE 103 mmol/L (98-107); CO2 26 mmol/L (21-32); CREATININE 0.9 mg/dL (0.55-1.02); GLUCOSE,RANDOM 207 mg/dL (74-106); SODIUM 138 mmol/L (136-145)
[2017-09-28 22:36] LABS: ALK PHOS 83 U/L (45-117); BILIRUBIN,TOTAL 0.7 mg/dL (0.2-1.0); SGPT/ALT 23 U/L (12-78); TOT PROT 7.5 g/dl (6.4-8.2)
[2017-09-28 22:37] LABS: POTASSIUM 3.8 mmol/L (3.5-5.1); SGOT/AST 26 U/L (15-37)
[2017-09-29 05:35] VITALS: BP 121/67; PULSE 79
--- NOTE | 2017-09-29 13:25 | EKG ---
Test Reason : Blood Pressure : / mmHG Vent. Rate : 086 BPM Atrial Rate : 086 BPM P-R Int : 156 ms QRS Dur : 076 ms QT Int : 370 ms P-R-T Axes : 065 033 053 degrees QTc Int : 442 ms NORMAL SINUS RHYTHM NORMAL ECG WHEN COMPARED WITH ECG OF 24-NOV-2016 01:47, NO SIGNIFICANT CHANGE WAS FOUND Confirmed by DONATO MISHRA MD ([id number]) on 09/29/2017 1:25:07 PM Referred By: Confirmed By:DONATO MISHRA MD
== END 2017-09-29 05:35 | disposition home or self-care (01) ==
LOC: JER 21:32
DX: F11.90 Opioid use, unspecified, uncomplicated (principal); F17.210 Nicotine dependence, cigarettes, uncomplicated
CPT/HCPCS: 36415; 80053; 82550; 84484; 85025; 93005; 93010; 99284-25

== ENCOUNTER 2018-10-08 10:20 | Day surgery (SDC) | payer OTHER | END 2018-10-08 13:45 | disposition home or self-care (01) | LOC: FASU-ENDO 10:20 ==

== ENCOUNTER 2018-11-05 09:48 | Day surgery (SDC) | payer OTHER ==
[2018-11-05 10:40] VITALS: BMI 30.1
[2018-11-05] MEDS ORDERED: LIDOCAINE HCL/PF 2% SDV 5ML VIAL ONE (11:54)
[2018-11-05] MEDS ORDERED: PROPOFOL 20 ML ONE (11:54)
[2018-11-05 12:29] VITALS: TEMP 97.6
[2018-11-05 13:28] VITALS: BP 128/82; PULSE 59
== END 2018-11-05 13:45 | disposition home or self-care (01) ==
LOC: FASU-ENDO 09:48
PROVIDERS: ATTEND Internal Medicine Gastroenterology
PROC: 0DJD8ZZ Inspection of Lower Intestinal Tract, Via Natural or Artificial Opening Endoscopic (ICD-10-PCS; principal; 2018-11-05 11:55)
DX: K92.2 Gastrointestinal hemorrhage, unspecified (principal); K57.30 Diverticulosis of large intestine without perforation or abscess without bleeding; K64.1 Second degree hemorrhoids

== ENCOUNTER 2019-03-11 09:11 | Emergency (ER) | payer OTHER ==
[2019-03-11 09:30] VITALS: BP 111/73; PULSE 80; TEMP 98.6; BMI 31.8
[2019-03-11] MEDS ORDERED: IBUPROFEN 400 MG TABLET (FP) PO ONE ×2 (09:48→09:56)
--- NOTE | 2019-03-11 10:25 | PDOC ---
History of Present Illness - General Chief Complaint: Pain Stated Complaint: PAIN IN LT HAND/HEADACHE Time Seen by Provider: 03/11/19 09:42 History Source: Patient Exam Limitations: No Limitations Past History - Past Medical History Allergies/Adverse Reactions: Allergies Allergy/AdvReac Type Severity Reaction Status Date / Time No Known Allergies Allergy Verified 03/11/19 09:30 Home Medications: Ambulatory Orders Albuterol 0.083% Nebulizer Marisa [Ventolin 0.083% Nebulizer Soln -] 1 amp NEB PRN 11/24/16 Albuterol Sulfate Inhaler - [Ventolin HFA Inhaler -] 1 puff IH PRN 11/24/16 Omeprazole 20 mg PO DAILY 11/24/16 Acetaminophen [Tylenol .Regular Strength -] 325 mm PO PRN 10/30/18 Anemia: Yes Asthma: Yes Cancer: No Cardiac Disorders: No CVA: No COPD: No CHF: No Dementia: No Diabetes: No GI Disorders: Yes (COLITIS) Disorders: No HTN: No Hypercholesterolemia: No Liver Disease: No Seizures: No Thyroid Disease: No - Surgical History Abdominal Surgery: No Appendectomy: No Cardiac Surgery: No Cholecystectomy: No Lung Surgery: No Neurologic Surgery: No Orthopedic Surgery: Yes (LEFT LEG ORIF) - Psycho Social/Smoking Cessation Hx Smoking History: Current every day smoker Have you smoked in the past 12 months: Yes Number of Cigarettes Smoked Daily: 10 If you are a former smoker, when did you quit?: 10/27/18 Information on smoking cessation initiated: Yes 'Breaking Loose' booklet given: 08/27/17 Hx Alcohol Use: No Drug/Substance Use Hx: No Substance Use Type: Alcohol, Cocaine, Heroin, Opiates Hx Substance Use Treatment: Yes (5-6YEARS) *Physical Exam - Vital Signs Last Vital Signs Temp Pulse Resp BP Pulse Ox 98.6 F 80 17 111/73 99 03/11/19 09:28 03/11/19 09:28 03/11/19 09:28 03/11/19 09:28 03/11/19 09:28 - Physical Exam General Appearance: No: Apparent Distress Musculoskeletal: positive: Other (+swelling along L middle finger MCP joint, no change in color, pain on movement of L middle finger, no erythema, L wrist unremarkable) Extremity: negative: Erythema Integumentary: negative: Ecchymosis, Bruising Neurologic: positive: Alert, Normal Mood/Affect ED Treatment Course - RADIOLOGY Radiology Studies Ordered: Category Date Time Status HAND- LEFT [RAD] Stat Radiology 03/11/19 09:49 Taken - Medications Given in the ED: ED Medications Discontinued Medications Generic Name Dose Route Start Last Admin Trade Name Sylvie PRN Reason Stop Dose Admin Ibuprofen 800 mg 03/11/19 09:48 03/11/19 09:59 Motrin - PO 03/11/19 09:49 800 mg ONCE ONE Administration Medical Decision Making - Medical Decision Making 53 y/o F hx of ?substance abuse, anemia, asthma presents with L middle finger swelling x 3 days. Denies trauma. Unable to recall how this happened. Has been using Tylenol for pain. Denies numbness/tingling/weakness of extremities L hand xray negative for fracture Will refer to ortho for further evaluation 03/11/19 10:21 Discharge - Discharge Information Problems reviewed: Yes Clinical Impression/Diagnosis: Finger joint swelling Qualifiers: Laterality: left Qualified Code(s): M25.442 - Effusion, left hand Condition: Stable Disposition: HOME - Admission No - Additional Discharge Information Prescription Drug Monitoring Program (I-STOP) results: I-STOP not reviewed - Follow up/Referral Referrals: Janak Kenney DO [Staff Physician] - 2 Days - Patient Discharge Instructions Additional Instructions: Thank you for choosing [facility]. It was a pleasure taking care of you. You may take Motrin 600 mg every 6 hours by mouth as needed for mild to moderate pain. Take Motrin with food. You were referred to orthopedics for further evaluation Return to the Emergency Department if your symptoms worsen or persist, you have fever, change in skin color, redness or other concerning symptoms. - Post Discharge Activity
== END 2019-03-11 10:41 | disposition home or self-care (01) ==
LOC: JERFT 09:11 → JER 09:11 → JERFT 10:41
DX: M25.442 Effusion, left hand (principal); F17.210 Nicotine dependence, cigarettes, uncomplicated; J45.909 Unspecified asthma, uncomplicated; D64.9 Anemia, unspecified
CPT/HCPCS: 73130-TC-LT-FY; 99281-25

== ENCOUNTER 2019-05-15 20:10 | Emergency (ER) | payer OTHER ==
[2019-05-15 20:22] VITALS: TEMP 97.9; BMI 32.8
--- NOTE | 2019-05-15 23:30 | PDOC ---
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 Patient denies any trauma or injury to left calf muscle leg. Patient report tingling sensation to left lower feet. Denies shortness of breath, chest pain, palpitation. Denies any other symptoms. Patient reports smoke 4 cigarettes a day. Patient did not take anything for symptoms Is this a multiple visit Asthma Patient?: No Timing/Duration: 4-6 hours Past History - Past Medical History Allergies/Adverse Reactions: Allergies Allergy/AdvReac Type Severity Reaction Status Date / Time No Known Allergies Allergy Verified 05/15/19 20:21 Home Medications: Ambulatory Orders Albuterol 0.083% Nebulizer Marisa [Ventolin 0.083% Nebulizer Soln -] 1 amp NEB PRN 11/24/16 Albuterol Sulfate Inhaler - [Ventolin HFA Inhaler -] 1 puff IH PRN 11/24/16 Omeprazole 20 mg PO DAILY 11/24/16 Acetaminophen [Tylenol .Regular Strength -] 325 mm PO PRN 10/30/18 Ibuprofen [Motrin -] 600 mg PO QID PRN #28 tablet 03/11/19 Anemia: Yes Asthma: Yes Cancer: No Cardiac Disorders: No CVA: No COPD: No CHF: No Dementia: No Diabetes: No GI Disorders: Yes (COLITIS) Disorders: No HTN: No Hypercholesterolemia: No Liver Disease: No Seizures: No Thyroid Disease: No - Surgical History Abdominal Surgery: No Appendectomy: No Cardiac Surgery: No Cholecystectomy: No Lung Surgery: No Neurologic Surgery: No Orthopedic Surgery: Yes (LEFT LEG ORIF) - Psycho Social/Smoking Cessation Hx Smoking History: Never smoked Have you smoked in the past 12 months: Yes Number of Cigarettes Smoked Daily: 10 If you are a former smoker, when did you quit?: 10/27/18 'Breaking Loose' booklet given: 08/27/17 Hx Alcohol Use: No Drug/Substance Use Hx: No Substance Use Type: Alcohol, Cocaine, Heroin, Opiates Hx Substance Use Treatment: Yes (5-6YEARS) Review of Systems - Review of Systems Able to Perform ROS?: Yes Is the patient limited Kinyarwanda proficient: No Constitutional: No: Fever, Malaise, Weakness HEENTM: No: Symptoms Reported, See HPI, Eye Pain, Blurred Vision, Tearing, Recent change in vision, Double Vision, Cataracts, Ear Pain, Ocular Prothesis, Ear Discharge, Nose Pain, Nose Congestion, Tinnitus, Nose Bleeding, Hearing Loss , Throat Pain, Throat Swelling, Mouth Pain, Dental Problems, Difficulty Swallowing, Mouth Swelling, Other Respiratory: No: Symptoms reported, See HPI, Cough, Orthopnea, Shortness of Breath, SOB with Exertion, SOB at Rest, Stridor, Wheezing, Productive cough, Hemoptysis, Other Cardiac (ROS): No: Symptoms Reported, See HPI, Chest Pain, Edema, Irregular Heart Rate, Lightheadedness, Palpitations, Syncope, Chest Tightness, Other ABD/GI: No: Symptoms Reported, Nausea, Vomiting Musculoskeletal: Yes: Symptoms Reported, See HPI, Joint Swelling (left calf swelling), Muscle Pain (left calf muscle) Integumentary: Yes: Symptoms Reported, See HPI, Other (swelling to left calf) Neurological: Yes: Symptoms reported, See HPI, Tingling. No: Numbness, Paresthesia, Weakness All Other Systems: Reviewed and Negative *Physical Exam - Vital Signs Last Vital Signs Temp Pulse Resp BP Pulse Ox 97.9 F 80 18 108/74 97 05/15/19 20:18 05/15/19 20:18 05/15/19 20:18 05/15/19 20:18 05/15/19 20:18 - Physical Exam 05/15/19 23:29 GENERAL: Well developed, well nourished. Awake and alert in moderate acute distress. CARDIOVASCULAR: Regular rate and rhythm. No murmurs, rubs, or gallops. PULMONARY: No evidence of respiratory distress. Lungs clear to auscultation bilaterally. No wheezing, rales or rhonchi. MUSCULOSKELETAL : Moderate tenderness left calf muscle with mild swelling over left calf muscle. No bony deformities EXTREMITIES: No cyanosis. Mild swelling to left calf muscle with moderate left calf tenderness. SKIN: Warm and dry. Normal capillary refill. Mild localized erythema to proximal aspect of left lower leg. No multiple varicosities to left lower leg. NEUROLOGICAL: Alert, awake, appropriate. No motor deficits in the lower extremities. Gait is normal without ataxia. PSYCHIATRIC: Cooperative. Good eye contact. Appropriate mood and affect. 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 Patient denies any trauma or injury to left calf muscle leg. Patient report tingling sensation to left lower feet. Denies shortness of breath, chest pain, palpitation. Denies any other symptoms. Patient reports smoke 4 cigarettes a day. Patient did not take anything for symptoms Exam significant for moderate tenderness to left calf muscle with mild swelling to left calf muscle with mild increased erythema to posterior proximal lower leg. Negative Homans sign. Patient symptoms likely DVT versus less likely calf muscle injury. Duplex ultrasound of left lower extremity ordered to rule out DVT 05/16/19 01:01 Duplex ultrasound negative for DVT. Patient still in moderate pain. will order lower extremity CT to eval calf to r/o muscle rupture. Toradol 30mg IM and robaxin 500mg PO ordered for pain 05/16/19 01:58 [facility]. Given patient complains, will do blood work to rule out any infection and patient also increased erythema to calf muscle Discharge - Discharge Information Problems reviewed: Yes Clinical Impression/Diagnosis: Tenderness of left calf, Cellulitis of left lower leg Condition: Stable - Follow up/Referral - Patient Discharge Instructions - Post Discharge Activity
[2019-05-16] MEDS ORDERED: KETOROLAC TROMETHAMINE 30 MG/1 ML VIAL IM ONE (00:51)
[2019-05-16] MEDS ORDERED: METHOCARBAMOL 500 MG TABLET PO ONE (00:51)
[2019-05-16] MEDS ORDERED: METHOCARBAMOL 500 MG TABLET ONE (00:55)
[2019-05-16] MEDS ORDERED: KETOROLAC TROMETHAMINE 30 MG/1 ML VIAL ONE (00:56)
[2019-05-16] MEDS ORDERED: ACETAMINOPHEN 1000 MG/100 ML VIAL (NON FORMULARY) IVPB ONE (01:47)
--- NOTE | 2019-05-16 01:55 | PDOC ---
*Physical Exam - Vital Signs Last Vital Signs Temp Pulse Resp BP Pulse Ox 97.9 F 80 18 108/74 97 05/15/19 20:18 05/15/19 20:18 05/15/19 20:18 05/15/19 20:18 05/15/19 20:18 ED Treatment Course - LABORATORY CBC & Chemistry Diagram: 05/16/19 02:00 05/16/19 02:00 - Medications Given in the ED: ED Medications Discontinued Medications Generic Name Dose Route Start Last Admin Trade Name Sylvie PRN Reason Stop Dose Admin Ketorolac Tromethamine 30 mg 05/16/19 00:51 05/16/19 01:01 Toradol Injection - IM 05/16/19 00:52 30 mg ONCE ONE Administration Methocarbamol 500 mg 05/16/19 00:51 05/16/19 01:01 Robaxin - PO 05/16/19 00:52 500 mg ONCE ONE Administration Medical Decision Making - Medical Decision Making 05/16/19 01:47 Ms Coffey is a 54 yo F who presents to the ER with a complaint of leg pain Pt legs are exquisitely tender to palpation Pt seen by Midlevel Provider under my direct supervision Pt interviewed and examined Difficulty ambulating No trauma to the leg Pt denies fevers or chills on exam pt is very tender ? erythema posterior erythema Ancillary studies reviewed Duplex read as negative I agree with plan as outlined by Midlevel Provider Pending Labs, CT Abx for cellulitis Discharge - Discharge Information Problems reviewed: Yes Clinical Impression/Diagnosis: Tenderness of left calf, Cellulitis of left lower leg Condition: Stable Disposition: HOME - Follow up/Referral Referrals: Jeffry Umanzor MD [Non Staff, Medical] - - Patient Discharge Instructions Patient Printed Discharge Instructions: DI for Leg Pain Additional Instructions: You were seen in the ED for complaints of leg pain In the ED you were evaluated with labwork and imaging Your results were unremarkable There does not appear to be an acute need for immediate hospitalization. You are advised to follow up with your Primary Care Physician within 1 week. You were given a referral to Vascular Specialty and you should follow up as directed. Take Tylenol and Motrin for symptom relief Return to the ED immediately if you experience worsening pain, fevers, weakness , numbness or any other concerning symptoms - Post Discharge Activity
[2019-05-16] MEDS ORDERED: ACETAMINOPHEN INJECTION 100 ML IVPB ONE (02:01)
[2019-05-16 02:11] LABS: BASO % 0.6 % (0-2.0); EOS % 1.5 % (0-4.5); HEMATOCRIT 34.7 % (32.4-45.2); HEMOGLOBIN 11.8 GM/dL (10.7-15.3); LYMPH % 39.6 % (8-40); MEAN CELL VOLUME 91.2 fl (80-96); MEAN PLT VOLUME 9.1 fl (7.5-11.1); MONO % 7.5 % (3.8-10.2); NEUT % 50.8 % (42.8-82.8); PLATELET COUNT 218 K/MM3 (134-434); RBC 3.81 M/mm3 (3.60-5.2); RDW 14.2 % (11.6-15.6); WHITE BLOOD COUNT 7.1 K/mm3 (4.0-10.0)
--- NOTE | 2019-05-16 02:18 | PDOC ---
*Physical Exam - Vital Signs Last Vital Signs Temp Pulse Resp BP Pulse Ox 97.9 F 80 18 108/74 97 05/15/19 20:18 05/15/19 20:18 05/15/19 20:18 05/15/19 20:18 05/15/19 20:18 - Physical Exam 05/16/19 05:39 Patient signed out by SONNY Pires In short patient with L calf swelling and pain, Negative duplex, negative labs and CT with no abnormalities Patient with varicose veins, will refer to vascular and d/c with strict return precautions. ED Treatment Course - LABORATORY CBC & Chemistry Diagram: 05/16/19 02:00 05/16/19 02:00 - ADDITIONAL ORDERS Additional order review: 05/16/19 02:00 RBC 3.81 MCV 91.2 MCHC 34.0 RDW 14.2 MPV 9.1 Neutrophils % 50.8 D Lymphocytes % 39.6 D Monocytes % 7.5 Eosinophils % 1.5 D Basophils % 0.6 - Medications Given in the ED: ED Medications Discontinued Medications Generic Name Dose Route Start Last Admin Trade Name Sylvie PRN Reason Stop Dose Admin Acetaminophen 1,000 mg 05/16/19 01:47 05/16/19 02:05 Ofirmev Injection - IVPB 05/16/19 01:48 1,000 mg ONCE ONE Administration Ketorolac Tromethamine 30 mg 05/16/19 00:51 05/16/19 01:01 Toradol Injection - IM 05/16/19 00:52 30 mg ONCE ONE Administration Methocarbamol 500 mg 05/16/19 00:51 05/16/19 01:01 Robaxin - PO 05/16/19 00:52 500 mg ONCE ONE Administration Discharge - Discharge Information Problems reviewed: Yes Clinical Impression/Diagnosis: Tenderness of left calf, Cellulitis of left lower leg Condition: Stable Disposition: HOME - Admission No - Follow up/Referral Referrals: Jeffry Umanzor MD [Non Staff, Medical] - - Patient Discharge Instructions Patient Printed Discharge Instructions: DI for Leg Pain Additional Instructions: You were seen in the ED for complaints of leg pain In the ED you were evaluated with labwork and imaging Your results were unremarkable There does not appear to be an acute need for immediate hospitalization. You are advised to follow up with your Primary Care Physician within 1 week. You were given a referral to Vascular Specialty and you should follow up as directed. Take Tylenol and Motrin for symptom relief Return to the ED immediately if you experience worsening pain, fevers, weakness , numbness or any other concerning symptoms - Post Discharge Activity
[2019-05-16 02:40] LABS: ALBUMIN 3.7 g/dl (3.4-5.0); BILIRUBIN,TOTAL 0.4 mg/dL (0.2-1); BLOOD UREA NITROGEN 14.7 mg/dL (7-18); CALCIUM 8.9 mg/dL (8.5-10.1); CREATININE 0.6 mg/dL (0.55-1.3); TOT PROT 7.2 g/dl (6.4-8.2)
--- NOTE | 2019-05-16 02:46 | PDOC ---
*Physical Exam - Vital Signs Last Vital Signs Temp Pulse Resp BP Pulse Ox 97.9 F 80 18 108/74 97 05/15/19 20:18 05/15/19 20:18 05/15/19 20:18 05/15/19 20:18 05/15/19 20:18 ED Treatment Course - LABORATORY CBC & Chemistry Diagram: 05/16/19 02:00 05/16/19 02:00 - ADDITIONAL ORDERS Additional order review: Laboratory Results 05/16/19 02:00 Sodium 142 Potassium 4.0 Chloride 110 H Carbon Dioxide 27 Anion Gap 5 L BUN 14.7 Creatinine 0.6 Est GFR (CKD-EPI)AfAm 118.09 Est GFR (CKD-EPI)NonAf 101.89 Random Glucose 109 H Calcium 8.9 Total Bilirubin 0.4 AST 22 ALT 34 Alkaline Phosphatase 89 Total Protein 7.2 Albumin 3.7 05/16/19 02:00 RBC 3.81 MCV 91.2 MCHC 34.0 RDW 14.2 MPV 9.1 Neutrophils % 50.8 D Lymphocytes % 39.6 D Monocytes % 7.5 Eosinophils % 1.5 D Basophils % 0.6 - Medications Given in the ED: ED Medications Discontinued Medications Generic Name Dose Route Start Last Admin Trade Name Sylvie PRN Reason Stop Dose Admin Acetaminophen 1,000 mg 05/16/19 01:47 05/16/19 02:05 Ofirmev Injection - IVPB 05/16/19 01:48 1,000 mg ONCE ONE Administration Ketorolac Tromethamine 30 mg 05/16/19 00:51 05/16/19 01:01 Toradol Injection - IM 05/16/19 00:52 30 mg ONCE ONE Administration Methocarbamol 500 mg 05/16/19 00:51 05/16/19 01:01 Robaxin - PO 05/16/19 00:52 500 mg ONCE ONE Administration Medical Decision Making - Medical Decision Making 05/16/19 02:45 Patient Name: JENIFER SAMANO THIS IS A PRELIMINARY REPORT FROM IMAGING DRIVER/GUIDE DATE OF SERVICE: 2019-05-15 23:22:29 IMAGES: 23 EXAM: Ultrasound left lower extremity venous duplex HISTORY: 54-Year-Old Female With Left Calf Pain And Swelling Assess For Deep Vein Thrombus COMPARISON: None. FINDINGS: Left common femoral vein and proximal greater saphenous vein and profunda femoral vein and femoral vein and popliteal vein and posterior tibial vein have normal compressibility and normal color flow and normal spectral Doppler waveforms. IMPRESSION: No evidence of a left lower extremity deep vein thrombus. 05/16/19 04:50 Patient Name: JENIFER SAMANO THIS IS A PRELIMINARY REPORT FROM IMAGING DRIVER/GUIDE DATE OF SERVICE: 2019-05-16 02:01:21 IMAGES: [id number] EXAM: LOWER EXTREMITY CT W/O CONTR HISTORY: Left calf pain COMPARISON: None. FINDINGS: The bones are normal. No soft tissue edema or abnormal fluid collections. No obvious muscle or ligament pathology, although MRI is superior to CT for soft tissue evaluation. No effusion of the hip knee or ankle joints. IMPRESSION: No evidence of pathology. 05/16/19 21:04 Pt was signed out to me; she has varicose veins that are so painful she cannot walk. We discussed sclerotherapy and ablative procedures. SHe will follow with [facility] surgeon and she will be given a knee immobilizer to help her balance Discharge - Discharge Information Problems reviewed: Yes Clinical Impression/Diagnosis: Tenderness of left calf, Cellulitis of left lower leg Condition: Stable Disposition: HOME - Follow up/Referral Referrals: Jeffry Umanzor MD [Non Staff, Medical] - - Patient Discharge Instructions Patient Printed Discharge Instructions: DI for Leg Pain Additional Instructions: You were seen in the ED for complaints of leg pain In the ED you were evaluated with labwork and imaging Your results were unremarkable There does not appear to be an acute need for immediate hospitalization. You are advised to follow up with your Primary Care Physician within 1 week. You were given a referral to Vascular Specialty and you should follow up as directed. Take Tylenol and Motrin for symptom relief Return to the ED immediately if you experience worsening pain, fevers, weakness , numbness or any other concerning symptoms - Post Discharge Activity
[2019-05-16 03:25] VITALS: BP 100/57; PULSE 52
== END 2019-05-16 05:43 | disposition home or self-care (01) ==
LOC: JERFT 20:10 → JER 20:10
PROC: 3E0233Z Introduction of Anti-inflammatory into Muscle, Percutaneous Approach (ICD-10-PCS; principal; 2019-05-15)
PROC: 3E033NZ Introduction of Analgesics, Hypnotics, Sedatives into Peripheral Vein, Percutaneous Approach (ICD-10-PCS; 2019-05-15)
DX: L03.116 Cellulitis of left lower limb (principal); Z87.19 Personal history of other diseases of the digestive system; Z87.09 Personal history of other diseases of the respiratory system
CPT/HCPCS: 36415; 73700-TC-RT; 80053; 85025; 87040; 93971-TC; 96372; 96374; 99283-25; J0131

== ENCOUNTER 2020-01-09 00:45 | Emergency (ER) | payer OTHER ==
[2020-01-09 01:09] VITALS: BMI 30.1
--- NOTE | 2020-01-09 02:11 | PDOC ---
History of Present Illness - General Chief Complaint: Weakness Stated Complaint: NAUSEA/DIZZINESS Time Seen by Provider: 01/09/20 02:08 - History of Present Illness Initial Comments: HPI 54yo F with no significant PMH presents with multiple complaints. Pt states that she was in her usual state of health until 4 days ago when she developed chest/back/abdominal pain, f/c, sore throat, n/v, SOB, diarrhea, and weakness 4 days ago. States that she saw her PCP yesterday, told she had a fever of 101, and was sent home with antibiotics and tylenol. Does not remember name of antibiotic. States that she took tylenol at 12pm today with mild improvement. Reports productive, yellow sputum. Reports NBNB emesis that occurs after every meal. Has not been able to tolerate food or sips of water during the past 4 days. Reports cloudy urine and dysuria. Reports chest pain that is sharp, intermittent, nonexertional, nonpositional, non radiating. PCP: Archana PMH: denies PSH: tubal ligation Meds: denies Allergies: NKDA Social: smokes 10 cigarettes/day, + etoh use, + cocaine use (last 3 days ago) Review of Systems CONSTITUTIONAL:denies fever, chills, diaphoresis, generalized weakness, malaise, loss of appetite HEENT:denies rhinorrhea, nasal congestion, sore throat, throat swelling, difficulty swallowing, mouth swelling, ear pain, eye pain, visual changes CARDIOVASCULAR:denies chest pain, syncope, palpitations, irregular heart rate, lightheadedness, peripheral edema RESPIRATORY:denies cough, shortness of breath, dyspnea with exertion, orthopnea, wheezing, hemoptysis GASTROINTESTINAL: denies abdominal pain, abdominal distension, nausea, vomiting, diarrhea, constipation, melena, hematochezia GENITOURINARY:denies dysuria, frequency, urgency, hesitancy, hematuria, flank pain, genital pain MUSCULOSKELETAL:denies myalgia, arthralgia, neck pain, back pain HEMATOLOGIC/IMMUNOLOGIC:denies easy bleeding, easy bruising ENDOCRINE: denies unexplained weight gain, unexplained weight loss, heat intolerance, cold intolerance NEUROLOGIC:denies headache, loss of consciousness, focal weakness or paresthesias, dizziness, unsteady gait, seizure, mental status changes, bladder or bowel incontinence SKIN:denies rash, itching, pallor PSYCHIATRIC:denies anxiety, depression, suicidal or homicidal ideation, hallucinations. Physical Exam General: awake, alert, oriented, in mild distress, well developed, well nourished Head: normocephalic, atraumatic Eyes: PERRL, EOMI, anicteric sclera, conjunctiva clear ENT: hearing grossly normal, oropharynx clear without exudates. Moist mucous membranes Neck: supple, normal ROM, no LAD, JVD or masses Lung: equal breath sounds b/l, CTA b/l, no crackles, wheezes; no distress, speaks full sentences Heart: RRR, normal S1, S2, no murmurs appreciated Abdomen: soft, TTP to LLQ and umbilical region, normoactive bowel sounds, no guarding, rebound, masses Back: +CVA tenderness, no midline TTP Extremities: no edema, no erythema or tenderness, DP/PT pulses 2+ and symmetric, no clubbing, cyanosis Neuro: CN2-12 grossly intact, moves all extremities, normal speech, sensation intact Skin: warm, dry, no rashes or lesions noted MDM 54yo F with no significant PMH presents with multiple complaints. DDx including but not limited to: COVID, pneumonia, pyelonephritis Workup: labs, cxr, ekg, UA/UCx, rectal temp TX: pain control Per chart review: pts PMH previous colitis/diverticulitis, throat Ca, Hemorrhoids, constipation, DM, lung nodules, and GERD Labs: thrombocytopenia, hypocalcemia, hyperchloremia, lactate WNL, troponin WNL Rectal temp: 99.0 CXR with R sided effusion and mass as seen on previous CXR from [address] P[address] CT chest read Pending UA Pt signed out to day team. Past History - Medical History Allergies/Adverse Reactions: Allergies Allergy/AdvReac Type Severity Reaction Status Date / Time No Known Allergies Allergy Verified 01/09/20 01:08 Home Medications: Ambulatory Orders NK [No Known Home Medication] 01/09/20 Anemia: Yes Asthma: Yes Cancer: No Cardiac Disorders: No CVA: No COPD: No CHF: No Dementia: No Diabetes: No GI Disorders: Yes (COLITIS) Disorders: No HTN: No Hypercholesterolemia: No Liver Disease: No Seizures: No Thyroid Disease: No - Surgical History Abdominal Surgery: No Appendectomy: No Cardiac Surgery: No Cholecystectomy: No Lung Surgery: No Neurologic Surgery: No Orthopedic Surgery: Yes (LEFT LEG ORIF) - Psycho-Social/Smoking History Smoking History: Current every day smoker Have you smoked in the past 12 months: Yes Number of Cigarettes Smoked Daily: 10 If you are a former smoker, when did you quit?: 10/27/18 Information on smoking cessation initiated: Yes 'Breaking Loose' booklet given: 08/27/17 - Substance Abuse Hx (Audit-C & DAST Scrn) How often the patient has a drink containing alcohol: 2-3 times / week Number of drinks the patient has on a typical day: 1 or 2 How often the patient has six or more drinks on one occasion: Monthly Score: In Men: 4 or > Positive; In Women: 3 or > Positive: 5 Screen Result (Pos requires Nsg. Audit-10AR): Positive In the last yr the pt used illegal drug/Rx for NonMed reason: Yes Score: Yes response is considered Positive: 1 Screen Result (Positive result requires Nsg. DAST-10): Positive *Physical Exam - Vital Signs Last Vital Signs Temp Pulse Resp BP Pulse Ox 99.6 F 91 H 20 105/68 98 01/09/20 01:06 01/09/20 01:06 01/09/20 01:06 01/09/20 01:06 01/09/20 01:29 ED Treatment Course - LABORATORY CBC & Chemistry Diagram: 01/09/20 03:45 01/09/20 03:36 Discharge - Discharge Information Problems reviewed: Yes Clinical Impression/Diagnosis: History of throat cancer Nausea & vomiting Qualifiers: Vomiting type: unspecified Vomiting Intractability: non-intractable Qualified Code(s): R11.2 - Nausea with vomiting, unspecified - Follow up/Referral Referrals: Hailey Magaña NP [Primary Care Provider] - - Patient Discharge Instructions - Post Discharge Activity
--- NOTE | 2020-01-09 02:15 | PDOC ---
Attending Attestation - Resident Resident Name: Zunilda Byrne - ED Attending Attestation I have performed the following: I have examined & evaluated the patient, The case was reviewed & discussed with the resident, I agree w/resident's findings & plan - HPI HPI: 01/09/20 06:52 Pt comes with histry of fever to "110F" as per patient. SHe states that she has nausea and vomiting. No diarrhea. Pt has LLQ pain and a hx of colitis in the past. She complains of dysuria. She has no cough and no flank pain. Pt has chest pain and SOB. Pt is a smoker and she has a hx of throat cancer. - Physicial Exam PE: 01/09/20 06:53 Pt has no fever in the ER; she appears well HEENT normal heart and lungs normal No flank pain No rebound and no guarding Pt has LLQ pain gassy abdominal sounds neuro intact. - Medical Decision Making 01/09/20 06:05 Labs are normal CXR shows right lower lung nodule; pt is a current smoker and she has a hx of throat cancer. We will get a CT scan of her chest to monitor the nodule size. 01/09/20 06:55 Labs normal We are awaiting UA results. IF UA is normal and pt continues to have LLQ pain, we can get a CT scan of the abd/pelvis to r/o colitis. Pt will be signed out to the day ER team Heart Score/ECG Review - [place]: Normal - P and DE Delta Wave(s) Present: No WPW: No - QRS Poor R Wave Progression: No Q Wave Present: No - ST and T Early Repolarization: No Non Specific ST-T Wave changes: No Flattened T Waves: No Prolonged Q-T Interval: No - ECG Impressions Normal ECG: Yes Non-specific ST Elevation: No Ischemic Changes: No Torsades scotty Pointes: No WPW: No Discharge - Discharge Information Problems reviewed: Yes Clinical Impression/Diagnosis: History of throat cancer, UTI (urinary tract infection) Nausea & vomiting Qualifiers: Vomiting type: unspecified Vomiting Intractability: non-intractable Qualified Code(s): R11.2 - Nausea with vomiting, unspecified Condition: Improved Disposition: HOME - Additional Discharge Information Prescriptions: Nitrofurantoin Monohyd/M-Cryst [Macrobid -] 100 mg PO BID 5 Days #10 capsule - Follow up/Referral Referrals: Hailey Magaña NP [Primary Care Provider] - - Patient Discharge Instructions Patient Printed Discharge Instructions: DI for Urinary Tract Infection (UTI) Additional Instructions: You have been seen in the Emergency Department. You have a UTI (urinary tract infection). We have sent antibiotics to your pharmacy - take as prescribed. If you experience pain, you can take Tylenol or Ibuprofen as directed on the medication bottle, but do not exceed 3g of Ibuprofen or 4g of Tylenol a day. Follow-up with your primary care doctor within 1 week. Return to the Emergency Department immediately if you experience vomiting, fever, worsening pain, or any other new or worsening symptom. - Post Discharge Activity
[2020-01-09] MEDS ORDERED: LACTATED RINGERS SOLUTION 1000 ML INFUS.BAG IV ONE (03:39)
[2020-01-09] MEDS ORDERED: ACETAMINOPHEN 1000 MG/100 ML VIAL (NON FORMULARY) IVPB ONE (03:40)
[2020-01-09] MEDS ORDERED: ACETAMINOPHEN INJECTION 100 ML IVPB ONE (04:07)
[2020-01-09 04:12] LABS: VENOUS BASE EXCESS -0.9 mmol/L (-2-2); VENOUS PCO2 38.5 mmHg (38-52); VENOUS PH 7.405 (7.310-7.410)
[2020-01-09] MEDS ORDERED: FOLIC ACID INJECTION - 1 MG, THIAMINE HCL 100 MG, MULTIVIT INJECTION ADULT 10 ML in SOD... IVPB ONE ×2 (04:15→04:16)
[2020-01-09 04:20] LABS: BASO % 0.6 % (0-2.0); HEMATOCRIT 37.8 % (32.4-45.2); LYMPH % 21.3 % (8-40); MCH 31.7 pg (25.7-33.7); MCHC 34.4 g/dl (32.0-36.0); MEAN CELL VOLUME 91.9 fl (80-96); MEAN PLT VOLUME 9.3 fl (7.5-11.1); MONO % 9.2 % (3.8-10.2); NEUT % 68.9 % (42.8-82.8); PLATELET COUNT 111 K/MM3 (134-434); RBC 4.11 M/mm3 (3.60-5.2); WHITE BLOOD COUNT 4.2 K/mm3 (4.0-10.0)
[2020-01-09 04:31] LABS: INR 0.96 (0.83-1.09); PROTHROMBIN TIME (PATIENT) 11.3 SEC (9.7-13.0)
[2020-01-09 04:34] LABS: ACTIVATED PTT 30.5 SECONDS (25.2-36.5)
[2020-01-09 04:51] LABS: ALK PHOS 74 U/L (45-117); ANION GAP 7 MMOL/L (8-16); BILIRUBIN,TOTAL 0.4 mg/dL (0.2-1); CALCIUM 7.8 mg/dL (8.5-10.1); CHLORIDE 108 mmol/L (98-107); CO2 24 mmol/L (21-32); CREATININE 0.8 mg/dL (0.55-1.3); GLUCOSE,RANDOM 102 mg/dL (74-106); POTASSIUM 4.6 mmol/L (3.5-5.1); SGOT/AST 67 U/L (15-37); SGPT/ALT 37 U/L (13-61); SODIUM 139 mmol/L (136-145); TOT PROT 6.8 g/dl (6.4-8.2)
[2020-01-09 04:53] LABS: BLOOD UREA NITROGEN 9.2 mg/dL (7-18)
[2020-01-09 06:24] VITALS: BP 112/80; PULSE 66; TEMP 99
--- NOTE | 2020-01-09 07:14 | PDOC ---
*Physical Exam - Vital Signs Last Vital Signs Temp Pulse Resp BP Pulse Ox 99.0 F 66 18 112/80 94 L 01/09/20 06:23 01/09/20 06:23 01/09/20 06:23 01/09/20 06:23 01/09/20 06:23 ED Treatment Course - LABORATORY CBC & Chemistry Diagram: 01/09/20 03:45 01/09/20 03:36 - ADDITIONAL ORDERS Additional order review: Laboratory Results 01/09/20 01/09/20 01/09/20 03:45 03:45 03:45 PT with INR 11.30 INR 0.96 PTT (Actin FS) 30.5 VBG pH 7.405 POC VBG pCO2 38.5 POC VBG pO2 47.8 VBG HCO3 23.6 VBG O2 Sat (Jamin) 84.0 H VBG Base Excess -0.9 Sodium Potassium Chloride Carbon Dioxide Anion Gap BUN Creatinine Est GFR (CKD-EPI)AfAm Est GFR (CKD-EPI)NonAf Random Glucose Lactic Acid 0.6 Calcium Total Bilirubin AST ALT Alkaline Phosphatase Troponin I Total Protein Albumin 01/09/20 03:36 PT with INR INR PTT (Actin FS) VBG pH POC VBG pCO2 POC VBG pO2 VBG HCO3 VBG O2 Sat (Jamin) VBG Base Excess Sodium 139 Potassium 4.6 Chloride 108 H Carbon Dioxide 24 Anion Gap 7 L BUN 9.2 Creatinine 0.8 Est GFR (CKD-EPI)AfAm 95.52 Est GFR (CKD-EPI)NonAf 82.42 Random Glucose 102 Lactic Acid Calcium 7.8 L Total Bilirubin 0.4 AST 67 H ALT 37 Alkaline Phosphatase 74 Troponin I < 0.02 Total Protein 6.8 Albumin 3.0 L 01/09/20 03:45 RBC 4.11 MCV 91.9 MCHC 34.4 RDW 14.0 MPV 9.3 Neutrophils % 68.9 D Lymphocytes % 21.3 D Monocytes % 9.2 Eosinophils % 0.0 D Basophils % 0.6 - Medications Given in the ED: ED Medications Discontinued Medications Generic Name Dose Route Start Last Admin Trade Name Freq PRN Reason Stop Dose Admin Acetaminophen 1,000 mg 01/09/20 03:40 01/09/20 04:12 Ofirmev Injection - IVPB 01/09/20 03:41 1,000 mg ONCE ONE Administration Folic Acid 1 mg/ Thiamine HCl 1,000 mls @ 125 mls/hr 01/09/20 04:15 01/09/20 04:17 100 mg/ Multivitamins/Minerals IVPB 01/09/20 12:14 Not Given 10 ml/ Sodium Chloride ONCE ONE Lactated Ringer's 1,000 ml 01/09/20 03:39 01/09/20 04:12 Lactated Ringers Solution IV 01/09/20 03:40 1,000 ml ONCE ONE Administration Medical Decision Making - Medical Decision Making 01/09/20 07:13 Received sign out. Pt seen and assessed at bedside. 54yo F hx previous colitis/diverticulitis, throat Ca, Hemorrhoids, constipation, DM, lung nodules, and GERD presents with multiple complaints. DDx including but not limited to: COVID, pneumonia, pyelonephritis Workup: labs, cxr, ekg, UA/UCx TX: pain control Labs: thrombocytopenia, hypocalcemia, hyperchloremia, lactate WNL, troponin WNL CXR with R sided effusion and mass as seen on previous CXR from 2017 []urine, CT chest 01/09/20 07:33 CT chest reviewed: IMPRESSION: Multiple pulmonary nodules in both lungs, one at its 2.3 cm in size and calcified, with fibrotic changes and traction bronchiectasis in other areas are most likely associated with old granulomatous disease. There is some concern about the patchy areas of peripheral groundglass density in the left lower lobe that could be associated with viral pneumonitis. No pericardial or pleural effusion. 01/09/20 07:38 Pt only c/o generalized weakness and pain to L anterior shoulder/L upper chest musculature, TTP. Benign abdomen. -Lidoderm patch 01/09/20 15:27 UTI -Nitrofurantoin Discharge - Discharge Information Problems reviewed: Yes Clinical Impression/Diagnosis: History of throat cancer, UTI (urinary tract infection) Nausea & vomiting Qualifiers: Vomiting type: unspecified Vomiting Intractability: non-intractable Qualified Code(s): R11.2 - Nausea with vomiting, unspecified Condition: Improved Disposition: HOME - Admission No - Additional Discharge Information Prescriptions: Nitrofurantoin Monohyd/M-Cryst [Macrobid -] 100 mg PO BID 5 Days #10 capsule - Follow up/Referral Referrals: Hailey Magaña STAFF DEVELOPMENT COORDINATOR [Primary Care Provider] - - Patient Discharge Instructions Patient Printed Discharge Instructions: DI for Urinary Tract Infection (UTI) Additional Instructions: You have been seen in the Emergency Department. You have a UTI (urinary tract infection). We have sent antibiotics to your pharmacy - take as prescribed. If you experience pain, you can take Tylenol or Ibuprofen as directed on the medication bottle, but do not exceed 3g of Ibuprofen or 4g of Tylenol a day. F ollow-up with your primary care doctor within 1 week. Return to the Emergency Department immediately if you experience vomiting, fever, worsening pain, or any other new or worsening symptom. - Post Discharge Activity
[2020-01-09] MEDS ORDERED: LIDOCAINE 5% TOPICAL PATCH TP ONE (07:38)
[2020-01-09] MEDS ORDERED: LIDOCAINE 5% TOPICAL PATCH ONE (07:42)
[2020-01-09] MEDS ORDERED: SODIUM CHLORIDE 0.9% 500 ML INFUS.BAG IV ONE (13:28)
[2020-01-09 15:22] LABS: EPI CELLS 3 /uL (0-25.1); HYALINE CASTS 3 /uL (0-3.1); PH,URINE 6.5 (5.0-8.0); URINE APPEARANCE CLEAR; URINE BACTERIA 2566 /uL (0-1359); URINE BILIRUBIN NEGATIVE (NEGATIVE); URINE COLOR YELLOW; URINE GLUCOSE (UA) NEGATIVE (NEGATIVE); URINE KETONE NEGATIVE (NEGATIVE); URINE LEUK ESTERASE 1+ (NEGATIVE); URINE NITRITE NEGATIVE (NEGATIVE); URINE PROTEIN 3+ (NEGATIVE); URINE RBC 64 /uL (0-23.9); URINE WBC 523 /uL (0-25.8)
[2020-01-09] MEDS ORDERED: NITROFURANTOIN MACROCRYSTAL 50 MG CAPSULE (FP) PO SCH (15:30)
[2020-01-09] MEDS ORDERED: NITROFURANTOIN MACROCRYSTAL 50 MG CAPSULE (FP) ONE (15:36)
[2020-01-09] MEDS ORDERED: LIDOCAINE PATCH REMOVAL MC SCH (22:00)
--- NOTE | 2020-01-11 21:56 | EKG ---
Test Reason : Blood Pressure : / mmHG Vent. Rate : 062 BPM Atrial Rate : 062 BPM P-R Int : 154 ms QRS Dur : 078 ms QT Int : 380 ms P-R-T Axes : 069 044 064 degrees QTc Int : 385 ms NORMAL SINUS RHYTHM MINIMAL VOLTAGE CRITERIA FOR LVH, MAY BE NORMAL VARIANT NONSPECIFIC T WAVE ABNORMALITY ABNORMAL ECG WHEN COMPARED WITH ECG OF 28-SEP-2017 23:01, T WAVE VARIATION Confirmed by ANATOLIY CARPIO, KRISTINE ([id number]) on 01/11/2020 9:55:45 PM Referred By: Confirmed By:KRISTINE COPE MD
== END 2020-01-09 16:18 | disposition home or self-care (01) ==
LOC: JER 00:45
PROC: 3E0333Z Introduction of Anti-inflammatory into Peripheral Vein, Percutaneous Approach (ICD-10-PCS; principal; 2020-01-09)
PROC: 3E033GC Introduction of Other Therapeutic Substance into Peripheral Vein, Percutaneous Approach (ICD-10-PCS; 2020-01-09)
DX: R11.2 Nausea with vomiting, unspecified (principal); Z85.21 Personal history of malignant neoplasm of larynx
CPT/HCPCS: 36415; 71045-TC-FY; 71250-TC; 80053; 81003; 82803; 83605; 84484; 85025; 85610; 85730; 87040; 87086; 87186; 93005; 93010; 99285-25; J0131; U0003

== ENCOUNTER 2020-08-30 11:35 | Emergency (ER) | payer OTHER ==
[2020-08-30 11:49] VITALS: TEMP 98.1; BMI 22.1
[2020-08-30] MEDS ORDERED: ACETAMINOPHEN 325 MG TABLET (FP) PO ONE (13:14)
[2020-08-30] MEDS ORDERED: ACETAMINOPHEN 325 MG TABLET (FP) ONE (13:24)
[2020-08-30 13:57] LABS: BASO % 0.5 % (0-2.0); EOS % 0.7 % (0-4.5); HEMOGLOBIN 9.9 GM/dL (10.7-15.3); LYMPH % 27.5 % (8-40); MCH 32.8 pg (25.7-33.7); MCHC 34.1 g/dl (32.0-36.0); MEAN CELL VOLUME 96.2 fl (80-96); MEAN PLT VOLUME 8.8 fl (7.5-11.1); NEUT % 56.3 % (42.8-82.8); PLATELET COUNT 185 K/MM3 (134-434); RBC 3.01 M/mm3 (3.60-5.2); WHITE BLOOD COUNT 5.4 K/mm3 (4.0-10.0)
[2020-08-30 13:59] LABS: EPI CELLS 8 /uL (0-25.1); HYALINE CASTS 0 /uL (0-3.1); URINE APPEARANCE CLEAR; URINE BACTERIA 150 /uL (0-1359); URINE BILIRUBIN NEGATIVE (NEGATIVE); URINE COLOR YELLOW; URINE GLUCOSE (UA) NEGATIVE (NEGATIVE); URINE KETONE NEGATIVE (NEGATIVE); URINE LEUK ESTERASE NEGATIVE (NEGATIVE); URINE NITRITE NEGATIVE (NEGATIVE); URINE PROTEIN 1+ (NEGATIVE); URINE RBC 4 /uL (0-23.9); URINE UROBILINOGEN 0.2 mg/dL (0.2-1.0); URINE WBC 15 /uL (0-25.8)
[2020-08-30 14:06] LABS: METHADONE, UR NEGATIVE ng/ml (CUTOFF=300); OPIATES, URI NEGATIVE ng/ml (CUTOFF=300)
[2020-08-30 14:07] LABS: URINE AMPHETAMINES NEGATIVE ng/ml (CUTOFF=500); URINE BARBITURATES NEGATIVE ng/ml (CUTOFF=200)
[2020-08-30 14:09] LABS: URINE BENZODIAZEPINES NEGATIVE ng/ml (CUTOFF=200)
[2020-08-30 14:11] LABS: COCAINE, UR POSITIVE ng/ml (CUTOFF=300); PHENCYCLIDINE,URINE NEGATIVE ng/ml (CUTOFF=25)
[2020-08-30 14:12] LABS: CHLORIDE 102 mmol/L (98-107); SODIUM 135 mmol/L (136-145)
[2020-08-30 14:13] LABS: CALCIUM 8.4 mg/dL (8.5-10.1)
[2020-08-30 14:14] LABS: ALBUMIN 3.2 g/dl (3.4-5.0); ANION GAP 3 MMOL/L (8-16); BLOOD UREA NITROGEN 8.4 mg/dL (7-18); CO2 30 mmol/L (21-32); GLUCOSE,RANDOM 104 mg/dL (74-106)
[2020-08-30 14:17] LABS: CREATININE 0.7 mg/dL (0.55-1.3); SGOT/AST 25 U/L (15-37)
[2020-08-30 14:19] LABS: BILIRUBIN,TOTAL 0.7 mg/dL (0.2-1); SGPT/ALT 23 U/L (13-61); TOT PROT 7.4 g/dl (6.4-8.2)
[2020-08-30 14:20] LABS: ALK PHOS 71 U/L (45-117)
[2020-08-30] MEDS ORDERED: FOLIC ACID INJECTION - 1 MG, THIAMINE HCL 100 MG, MULTIVIT INJECTION ADULT 10 ML in SOD... IVPB ONE (14:29)
[2020-08-30 16:50] VITALS: BP 122/76; PULSE 65
== END 2020-08-30 17:07 | disposition short-term general hospital (02) ==
LOC: JER 11:35
DX: F19.10 Other psychoactive substance abuse, uncomplicated (principal)
CPT/HCPCS: 36415; 70450-TC; 71046-TC-FY; 80053; 80307; 81003; 84443; 85025; 99285-25; C9803; U0003; U0005

== ENCOUNTER 2020-08-30 18:17 | Inpatient (IN) | payer OTHER ==
[2020-08-30 21:02] VITALS: BMI 22.1
[2020-08-30] MEDS ORDERED: ACETAMINOPHEN 325 MG TABLET (FP) PO PRN ×2 (22:08)
[2020-08-30] MEDS ORDERED: hydrOXYzine PAMOATE 25 MG CAPSULE (FP) PO PRN (22:08)
[2020-08-30] MEDS ORDERED: BISMUTH SUBSALICYLATE 524 MG/30 ML UD PO PRN (22:08)
[2020-08-30] MEDS ORDERED: METHOCARBAMOL 500 MG TABLET PO PRN (22:08)
[2020-08-30] MEDS ORDERED: MAG HYDROX/AL HYDROX/SIMETH 30 ML UNIT-DOSE CUP PO PRN (22:08)
[2020-08-30] MEDS ORDERED: ONDANSETRON *ODT* 4 MG TABLET SL PRN (22:08)
[2020-08-30] MEDS ORDERED: MAGNESIUM CITRATE 300 ML BOTTLE PO PRN (22:08)
[2020-08-30] MEDS ORDERED: MAGNESIUM HYDROX 2400MG/30ML ORAL SUSPENSION 30 ML CUP PO PRN (22:08)
[2020-08-30] MEDS ORDERED: IBUPROFEN 400 MG TABLET (FP) PO PRN (22:08)
[2020-08-30] MEDS ORDERED: NICOTINE POLACRILEX 2 MG GUM BUC PRN (22:08)
[2020-08-30] MEDS ORDERED: MENTHOL/PHENOL 1 EACH UD MM PRN (22:08)
[2020-08-30] MEDS ORDERED: METHADONE HCL 10 MG TABLET (FOR DETOX USE ONLY) PO ONE ×2 (22:11)
[2020-08-30] MEDS ORDERED: cloNIDine HCL 0.1 MG TABLET PO PRN (22:11)
[2020-08-31] MEDS: diazePAM 5 MG TABLET PO PRN ×2 (06:34→17:54)
[2020-08-31] MEDS ORDERED: METHADONE HCL 10 MG TABLET (FOR DETOX USE ONLY) PO ONE (10:00)
[2020-08-31] MEDS: NITROFURANTOIN MACROCRYSTAL 50 MG CAPSULE (FP) PO SCH ×4 (10:32→22:33)
[2020-08-31] MEDS: PRENATAL VITAMINS W/ FOLIC ACID TABLET (FP) PO SCH (10:33)
[2020-08-31] MEDS ORDERED: MELATONIN 5 MG TABLETS PO SCH (22:00)
[2020-08-31] MEDS ORDERED: THIAMINE HCL 100 MG TABLET (FP) PO SCH (22:00)
[2020-09-01] MEDS ORDERED: METHADONE HCL 5 MG TABLET (FOR DETOX USE ONLY) PO ONE (06:00)
[2020-09-01 09:24] VITALS: TEMP 97.8
[2020-09-01] MEDS: PRENATAL VITAMINS W/ FOLIC ACID TABLET (FP) PO SCH (10:16)
[2020-09-01] MEDS: NITROFURANTOIN MACROCRYSTAL 50 MG CAPSULE (FP) PO SCH ×2 (10:17→15:03)
[2020-09-01 14:56] VITALS: BP 133/96; PULSE 66
== END 2020-09-01 17:12 | disposition other institution (70) | DRG 773 ==
LOC: YASAS 18:17 → Y6N 08-31 00:28
PROVIDERS: ADMIT Allergy & Immunology; ATTEND Allergy & Immunology
PROC: HZ2ZZZZ Detoxification Services for Substance Abuse Treatment (ICD-10-PCS; principal; 2020-08-31)
DX: F11.23 Opioid dependence with withdrawal (principal); F10.230 Alcohol dependence with withdrawal, uncomplicated; F14.20 Cocaine dependence, uncomplicated; F17.210 Nicotine dependence, cigarettes, uncomplicated; J45.909 Unspecified asthma, uncomplicated
CPT/HCPCS: 36415; 86780; 93005; 93010; C9803; U0003; U0005

== ENCOUNTER 2020-09-01 18:07 | Inpatient (IN) | payer OTHER ==
[2020-09-01] MEDS ORDERED: MAGNESIUM CITRATE 300 ML BOTTLE PO PRN (18:20)
[2020-09-01] MEDS ORDERED: MENTHOL/PHENOL 1 EACH UD MM PRN (18:20)
[2020-09-01] MEDS ORDERED: P-EPHED 60MG/TRIPROLIDI 2.5MG TABLET PO PRN (18:20)
[2020-09-01] MEDS ORDERED: MAG HYDROX/AL HYDROX/SIMETH 30 ML UNIT-DOSE CUP PO PRN (18:20)
[2020-09-01] MEDS ORDERED: LOPERAMIDE HCL 2 MG CAPSULE PO PRN (18:20)
[2020-09-01] MEDS ORDERED: MAGNESIUM HYDROX 2400MG/30ML ORAL SUSPENSION 30 ML CUP PO PRN (18:20)
[2020-09-01] MEDS ORDERED: IBUPROFEN 400 MG TABLET (FP) PO PRN (18:20)
[2020-09-01] MEDS ORDERED: guaiFENesin 200 MG/10 ML 10 ML UNIT-DOSE CUPS PO PRN (18:20)
[2020-09-01] MEDS ORDERED: NICOTINE POLACRILEX 2 MG GUM BUC PRN (18:20)
[2020-09-01] MEDS: hydrOXYzine PAMOATE 25 MG CAPSULE (FP) PO PRN (21:41)
[2020-09-01] MEDS: THIAMINE HCL 100 MG TABLET (FP) PO SCH (21:41)
[2020-09-01] MEDS: MELATONIN 5 MG TABLETS PO SCH (21:50)
[2020-09-01] MEDS: METHOCARBAMOL 500 MG TABLET PO PRN (22:28)
[2020-09-02] MEDS: hydrOXYzine PAMOATE 25 MG CAPSULE (FP) PO PRN (06:41)
[2020-09-02] MEDS: NICOTINE 7 MG/24 HOURS TOPICAL PATCH TD SCH (09:14)
[2020-09-02] MEDS: PRENATAL VITAMINS W/ FOLIC ACID TABLET (FP) PO SCH (09:14)
[2020-09-02] MEDS: METHOCARBAMOL 500 MG TABLET PO PRN (12:08)
[2020-09-02] MEDS: ACETAMINOPHEN 325 MG TABLET (FP) PO PRN (12:08)
[2020-09-02] MEDS: MELATONIN 5 MG TABLETS PO SCH (21:18)
[2020-09-02] MEDS: THIAMINE HCL 100 MG TABLET (FP) PO SCH (21:18)
[2020-09-03] MEDS: PRENATAL VITAMINS W/ FOLIC ACID TABLET (FP) PO SCH (10:02)
[2020-09-03] MEDS: NICOTINE 7 MG/24 HOURS TOPICAL PATCH TD SCH (10:02)
[2020-09-03] MEDS: METHOCARBAMOL 500 MG TABLET PO PRN ×2 (10:03→21:21)
[2020-09-03] MEDS: ACETAMINOPHEN 325 MG TABLET (FP) PO PRN (10:04)
[2020-09-03] MEDS: THIAMINE HCL 100 MG TABLET (FP) PO SCH (21:20)
[2020-09-03] MEDS: MELATONIN 5 MG TABLETS PO SCH (21:20)
[2020-09-04] MEDS: PRENATAL VITAMINS W/ FOLIC ACID TABLET (FP) PO SCH (10:15)
[2020-09-04] MEDS: ACETAMINOPHEN 325 MG TABLET (FP) PO PRN (10:16)
[2020-09-04] MEDS: NICOTINE 7 MG/24 HOURS TOPICAL PATCH TD SCH (10:16)
[2020-09-04 13:48] LABS: HIV INTERPRETATION PRESUMPTIVE POSITIVE (NEGATIVE)
[2020-09-04] MEDS: METHOCARBAMOL 500 MG TABLET PO PRN (21:28)
[2020-09-04] MEDS: THIAMINE HCL 100 MG TABLET (FP) PO SCH (21:28)
[2020-09-04] MEDS: MELATONIN 5 MG TABLETS PO SCH (21:29)
[2020-09-05] MEDS: NICOTINE 7 MG/24 HOURS TOPICAL PATCH TD SCH (10:48)
[2020-09-05] MEDS: PRENATAL VITAMINS W/ FOLIC ACID TABLET (FP) PO SCH (10:48)
[2020-09-05] MEDS: MELATONIN 5 MG TABLETS PO SCH (21:15)
[2020-09-05] MEDS: METHOCARBAMOL 500 MG TABLET PO PRN (21:15)
[2020-09-05] MEDS: THIAMINE HCL 100 MG TABLET (FP) PO SCH (21:15)
[2020-09-06] MEDS: PRENATAL VITAMINS W/ FOLIC ACID TABLET (FP) PO SCH (10:27)
[2020-09-06] MEDS: NICOTINE 7 MG/24 HOURS TOPICAL PATCH TD SCH (10:28)
[2020-09-06] MEDS: MELATONIN 5 MG TABLETS PO SCH (21:25)
[2020-09-06] MEDS: THIAMINE HCL 100 MG TABLET (FP) PO SCH (21:25)
[2020-09-07] MEDS: PRENATAL VITAMINS W/ FOLIC ACID TABLET (FP) PO SCH (10:46)
[2020-09-07] MEDS: NICOTINE 7 MG/24 HOURS TOPICAL PATCH TD SCH (10:47)
[2020-09-07] MEDS: MELATONIN 5 MG TABLETS PO SCH (21:25)
[2020-09-07] MEDS: METHOCARBAMOL 500 MG TABLET PO PRN (21:25)
[2020-09-07] MEDS: THIAMINE HCL 100 MG TABLET (FP) PO SCH (21:25)
[2020-09-08] MEDS: NICOTINE 7 MG/24 HOURS TOPICAL PATCH TD SCH (10:27)
[2020-09-08] MEDS: PRENATAL VITAMINS W/ FOLIC ACID TABLET (FP) PO SCH (10:27)
[2020-09-08] MEDS: MELATONIN 5 MG TABLETS PO SCH (21:49)
[2020-09-08] MEDS: THIAMINE HCL 100 MG TABLET (FP) PO SCH (21:49)
[2020-09-09] MEDS: PRENATAL VITAMINS W/ FOLIC ACID TABLET (FP) PO SCH (10:20)
[2020-09-09] MEDS: NICOTINE 7 MG/24 HOURS TOPICAL PATCH TD SCH (10:20)
[2020-09-09 15:39] LABS: HIV INTERPRETATION PRESUMPTIVE POSITIVE (NEGATIVE)
[2020-09-09] MEDS: THIAMINE HCL 100 MG TABLET (FP) PO SCH (21:50)
[2020-09-09] MEDS: MELATONIN 5 MG TABLETS PO SCH (21:50)
[2020-09-10] MEDS: ACETAMINOPHEN 325 MG TABLET (FP) PO PRN (02:04)
[2020-09-10] MEDS: PRENATAL VITAMINS W/ FOLIC ACID TABLET (FP) PO SCH (09:56)
[2020-09-10] MEDS: NICOTINE 7 MG/24 HOURS TOPICAL PATCH TD SCH (09:57)
[2020-09-10] MEDS: THIAMINE HCL 100 MG TABLET (FP) PO SCH (21:40)
[2020-09-10] MEDS: MELATONIN 5 MG TABLETS PO SCH (21:40)
[2020-09-11] MEDS: PRENATAL VITAMINS W/ FOLIC ACID TABLET (FP) PO SCH (09:32)
[2020-09-11] MEDS: NICOTINE 7 MG/24 HOURS TOPICAL PATCH TD SCH (09:33)
[2020-09-11] MEDS: ACETAMINOPHEN 325 MG TABLET (FP) PO PRN (15:03)
[2020-09-11] MEDS: MELATONIN 5 MG TABLETS PO SCH (21:31)
[2020-09-11] MEDS: THIAMINE HCL 100 MG TABLET (FP) PO SCH (21:32)
[2020-09-12] MEDS: ACETAMINOPHEN 325 MG TABLET (FP) PO PRN (02:37)
[2020-09-12] MEDS: NICOTINE 7 MG/24 HOURS TOPICAL PATCH TD SCH (10:10)
[2020-09-12] MEDS: PRENATAL VITAMINS W/ FOLIC ACID TABLET (FP) PO SCH (10:10)
[2020-09-12] MEDS: METHOCARBAMOL 500 MG TABLET PO PRN (21:34)
[2020-09-12] MEDS: THIAMINE HCL 100 MG TABLET (FP) PO SCH (21:34)
[2020-09-12] MEDS: MELATONIN 5 MG TABLETS PO SCH (21:34)
[2020-09-13] MEDS ORDERED: MASKS NR ONE (07:18)
[2020-09-13] MEDS: NICOTINE 7 MG/24 HOURS TOPICAL PATCH TD SCH (10:06)
[2020-09-13] MEDS: PRENATAL VITAMINS W/ FOLIC ACID TABLET (FP) PO SCH (10:06)
[2020-09-13] MEDS: CLOTRIMAZOLE 10 MG TROCHE PO SCH ×2 (19:34→21:36)
[2020-09-13] MEDS: MELATONIN 5 MG TABLETS PO SCH (21:35)
[2020-09-13] MEDS: THIAMINE HCL 100 MG TABLET (FP) PO SCH (21:36)
[2020-09-14] MEDS: CLOTRIMAZOLE 10 MG TROCHE PO SCH ×5 (06:35→21:56)
[2020-09-14] MEDS: PRENATAL VITAMINS W/ FOLIC ACID TABLET (FP) PO SCH (09:43)
[2020-09-14] MEDS: ACETAMINOPHEN 325 MG TABLET (FP) PO PRN (09:45)
[2020-09-14] MEDS: NICOTINE 7 MG/24 HOURS TOPICAL PATCH TD SCH (09:47)
[2020-09-14] MEDS: METHOCARBAMOL 500 MG TABLET PO PRN (21:24)
[2020-09-14] MEDS: THIAMINE HCL 100 MG TABLET (FP) PO SCH (21:24)
[2020-09-14] MEDS: MELATONIN 5 MG TABLETS PO SCH (21:55)
[2020-09-15] MEDS ORDERED: PT OWN MED DRAWER 7, Y5N ONE (05:17)
[2020-09-15] MEDS: CLOTRIMAZOLE 10 MG TROCHE PO SCH ×2 (06:06→09:53)
[2020-09-15 07:34] VITALS: BP 119/81; PULSE 62; TEMP 96.2
[2020-09-15] MEDS: PRENATAL VITAMINS W/ FOLIC ACID TABLET (FP) PO SCH (09:53)
[2020-09-15] MEDS: NICOTINE 7 MG/24 HOURS TOPICAL PATCH TD SCH (09:55)
== END 2020-09-15 10:45 | disposition home or self-care (01) | DRG 772 ==
LOC: YASAS 18:07 → Y5N 18:08
PROVIDERS: ADMIT Allergy & Immunology; ATTEND Allergy & Immunology
PROC: HZ42ZZZ Group Counseling for Substance Abuse Treatment, Cognitive-Behavioral (ICD-10-PCS; principal; 2020-09-01)
DX: F11.20 Opioid dependence, uncomplicated (principal); F14.20 Cocaine dependence, uncomplicated; F17.210 Nicotine dependence, cigarettes, uncomplicated; Z21 Asymptomatic human immunodeficiency virus [HIV] infection status; B37.0 Candidal stomatitis; K21.9 Gastro-esophageal reflux disease without esophagitis; R73.03 Prediabetes; R91.8 Other nonspecific abnormal finding of lung field; Z85.819 Personal history of malignant neoplasm of unspecified site of lip, oral cavity, and pharynx
CPT/HCPCS: 36415; 87389; C9803; U0003; U0005

== ENCOUNTER 2021-04-29 20:51 | Inpatient (IN) | payer OTHER ==
[2021-04-29] MEDS ORDERED: SODIUM CHLORIDE 1,905 ML IV ONE (22:42)
[2021-04-29] MEDS ORDERED: ACETAMINOPHEN 1000 MG/100 ML VIAL IVPB ONE (22:43)
[2021-04-29 23:32] LABS: BASO % 0.3 % (0-2.0); EOS % 0.2 % (0-4.5); HEMATOCRIT 35.3 % (32.4-45.2); HEMOGLOBIN 12.1 GM/dL (10.7-15.3); MCH 32.1 pg (25.7-33.7); MCHC 34.2 g/dl (32.0-36.0); MEAN PLT VOLUME 8.6 fl (7.5-11.1); MONO % 8.7 % (3.8-10.2); NEUT % 80.8 % (42.8-82.8); PLATELET COUNT 222 10^3/uL (134-434); RBC 3.76 M/mm3 (3.60-5.2); RDW 13.6 % (11.6-15.6); WHITE BLOOD COUNT 9.6 K/mm3 (4.0-10.0)
[2021-04-29 23:45] LABS: INR 1.07 (0.83-1.09)
[2021-04-29 23:48] LABS: ACTIVATED PTT 30.3 SECONDS (25.2-36.5)
[2021-04-29 23:56] LABS: CHLORIDE 105 mmol/L (98-107); SODIUM 137 mmol/L (136-145)
[2021-04-29 23:57] LABS: CALCIUM 8.6 mg/dL (8.5-10.1)
[2021-04-29 23:58] LABS: ANION GAP 8 MMOL/L (8-16); BLOOD UREA NITROGEN 9.6 mg/dL (7-18); CO2 24 mmol/L (21-32); GLUCOSE,RANDOM 106 mg/dL (74-106)
[2021-04-30 00:02] LABS: CREATININE 0.8 mg/dL (0.55-1.3); SGOT/AST 17 U/L (15-37); SGPT/ALT 50 U/L (13-61)
[2021-04-30 00:04] LABS: BILIRUBIN,TOTAL 0.3 mg/dL (0.2-1); TOT PROT 7.8 g/dl (6.4-8.2)
[2021-04-30 00:08] LABS: ALK PHOS 77 U/L (45-117)
[2021-04-30 03:25] LABS: EPI CELLS >36 /uL (0-25.1); HYALINE CASTS 1 /uL (0-3.1); URINE APPEARANCE CLEAR; URINE BACTERIA 756 /uL (0-1359); URINE BILIRUBIN NEGATIVE (NEGATIVE); URINE COLOR YELLOW; URINE GLUCOSE (UA) NEGATIVE (NEGATIVE); URINE KETONE NEGATIVE (NEGATIVE); URINE LEUK ESTERASE TRACE (NEGATIVE); URINE NITRITE NEGATIVE (NEGATIVE); URINE PROTEIN NEGATIVE (NEGATIVE); URINE RBC 6 /uL (0-23.9); URINE UROBILINOGEN 0.2 mg/dL (0.2-1.0); URINE WBC 49 /uL (0-25.8)
[2021-04-30] MEDS ORDERED: LACTULOSE 20 GM/30 ML UDC (FOR ORAL USE ONLY) PO ONE (04:30)
[2021-04-30] MEDS ORDERED: CEFTRIAXONE 1 GM/50 ML BAG ONE (04:38)
[2021-04-30] MEDS ORDERED: ENOXAPARIN NA (PORCINE) 40 MG/0.4 ML DISP.SYRIN SQ ONE (09:48)
[2021-04-30] MEDS ORDERED: POLYETHYLENE GLYCOL (HEALTHYLAX) 3350 17 GM PACKET ONE (09:48)
[2021-04-30] MEDS: ENOXAPARIN NA (PORCINE) 40 MG/0.4 ML DISP.SYRIN SQ SCH (10:00)
[2021-04-30] MEDS: POLYETHYLENE GLYCOL (HEALTHYLAX) 3350 17 GM PACKET PO SCH ×2 (10:00→21:23)
[2021-04-30 10:15] LABS: BASO % 0.4 % (0-2.0); EOS % 0.4 % (0-4.5); HEMATOCRIT 33.7 % (32.4-45.2); HEMOGLOBIN 11.8 GM/dL (10.7-15.3); LYMPH % 11.2 % (8-40); MCH 33.4 pg (25.7-33.7); MEAN CELL VOLUME 95.3 fl (80-96); MEAN PLT VOLUME 9.1 fl (7.5-11.1); MONO % 10.7 % (3.8-10.2); NEUT % 77.3 % (42.8-82.8); PLATELET COUNT 211 10^3/uL (134-434); RBC 3.54 M/mm3 (3.60-5.2); RDW 13.3 % (11.6-15.6)
[2021-04-30] MEDS: NICOTINE 14 MG/24 HOURS TOPICAL PATCH TD SCH (10:33)
[2021-04-30] MEDS: BICTEGRAV/EMTRICIT/TENOFOV (BIKTARVY) 50-200-25 MG TABLET PO SCH (10:33)
[2021-04-30 10:43] LABS: ALBUMIN 2.8 g/dl (3.4-5.0); BLOOD UREA NITROGEN 6.8 mg/dL (7-18); CALCIUM 8.2 mg/dL (8.5-10.1); MAGNESIUM 2.1 mg/dL (1.8-2.4)
[2021-04-30 10:45] LABS: CREATININE 0.8 mg/dL (0.55-1.3); PHOSPHOROUS 2.9 mg/dL (2.5-4.9)
[2021-04-30 10:48] LABS: BILIRUBIN,TOTAL 0.4 mg/dL (0.2-1); TOT PROT 7.4 g/dl (6.4-8.2)
[2021-04-30 15:15] LABS: OPIATES, URI NEGATIVE (NEGATIVE); PHENCYCLIDINE,URINE NEGATIVE (NEGATIVE); URINE BARBITURATES NEGATIVE (NEGATIVE); URINE BENZODIAZEPINES NEGATIVE (NEGATIVE)
[2021-04-30 15:17] LABS: METHADONE, UR NEGATIVE (NEGATIVE); URINE AMPHETAMINES NEGATIVE (NEGATIVE)
[2021-04-30 15:18] LABS: COCAINE, UR POSITIVE (NEGATIVE)
[2021-04-30] MEDS ORDERED: PNEUMOC 13-VAL CONJ-DIP CRM/PF 0.5 ML DISP.SYRIN IM ONE (15:30)
[2021-04-30 15:46] LABS: ERYTHROCYTE SEDIMENTATION RATE 41 mm/hr (0-30)
[2021-04-30] MEDS: SODIUM CHLORIDE 1,000 ML IV SCH ×2 (18:44→21:23)
[2021-04-30] MEDS: ACETAMINOPHEN 1000 MG/100 ML VIAL IVPB PRN (19:35)
[2021-05-01] MEDS: SODIUM CHLORIDE 1,000 ML IV SCH ×2 (05:23→11:26)
[2021-05-01] MEDS: ACETAMINOPHEN 1000 MG/100 ML VIAL IVPB PRN (06:16)
[2021-05-01 09:25] LABS: BASO % 0.6 % (0-2.0); EOS % 1.5 % (0-4.5); HEMATOCRIT 30.4 % (32.4-45.2); HEMOGLOBIN 10.4 GM/dL (10.7-15.3); LYMPH % 16.4 % (8-40); MCH 32.7 pg (25.7-33.7); MEAN PLT VOLUME 9.1 fl (7.5-11.1); NEUT % 69.5 % (42.8-82.8); PLATELET COUNT 189 10^3/uL (134-434); RBC 3.17 M/mm3 (3.60-5.2); RDW 13.6 % (11.6-15.6); WHITE BLOOD COUNT 5.4 K/mm3 (4.0-10.0)
[2021-05-01 10:09] LABS: BILIRUBIN,TOTAL 0.2 mg/dL (0.2-1); ERYTHROCYTE SEDIMENTATION RATE 28 mm/hr (0-30)
[2021-05-01 10:10] LABS: ALBUMIN 2.5 g/dl (3.4-5.0); BLOOD UREA NITROGEN 7.5 mg/dL (7-18); PHOSPHOROUS 2.5 mg/dL (2.5-4.9); TOT PROT 6.5 g/dl (6.4-8.2)
[2021-05-01 10:11] LABS: CALCIUM 7.7 mg/dL (8.5-10.1); CREATININE 0.8 mg/dL (0.55-1.3); MAGNESIUM 1.9 mg/dL (1.8-2.4)
[2021-05-01] MEDS: POLYETHYLENE GLYCOL (HEALTHYLAX) 3350 17 GM PACKET PO SCH ×2 (10:11→21:42)
[2021-05-01] MEDS: BICTEGRAV/EMTRICIT/TENOFOV (BIKTARVY) 50-200-25 MG TABLET PO SCH (10:14)
[2021-05-01] MEDS: ENOXAPARIN NA (PORCINE) 40 MG/0.4 ML DISP.SYRIN SQ SCH (10:14)
[2021-05-01] MEDS: NICOTINE 14 MG/24 HOURS TOPICAL PATCH TD SCH (10:15)
[2021-05-01] MEDS: NAPH,MB-DB/K PH,MBDB POWDER PACKET PO SCH ×2 (11:25→21:42)
[2021-05-01] MEDS ORDERED: ACETAMINOPHEN 500 MG TABLET (FP) PO PRN (17:13)
[2021-05-02 09:13] LABS: HEMATOCRIT 31.7 % (32.4-45.2); HEMOGLOBIN 10.8 GM/dL (10.7-15.3); MCH 32.7 pg (25.7-33.7); MCHC 33.9 g/dl (32.0-36.0); MEAN CELL VOLUME 96.2 fl (80-96); PLATELET COUNT 191 10^3/uL (134-434); RBC 3.29 M/mm3 (3.60-5.2); RDW 13.6 % (11.6-15.6); WHITE BLOOD COUNT 4.7 K/mm3 (4.0-10.0)
[2021-05-02 09:23] LABS: CALCIUM 8.2 mg/dL (8.5-10.1)
[2021-05-02 09:24] LABS: BLOOD UREA NITROGEN 7.1 mg/dL (7-18)
[2021-05-02 09:27] LABS: CREATININE 0.6 mg/dL (0.55-1.3); PHOSPHOROUS 3.2 mg/dL (2.5-4.9)
[2021-05-02] MEDS ORDERED: ACETAMINOPHEN 325 MG TABLET (FP) ONE (09:49)
[2021-05-02] MEDS: NAPH,MB-DB/K PH,MBDB POWDER PACKET PO SCH (10:12)
[2021-05-02] MEDS: POLYETHYLENE GLYCOL (HEALTHYLAX) 3350 17 GM PACKET PO SCH (10:12)
[2021-05-02] MEDS: BICTEGRAV/EMTRICIT/TENOFOV (BIKTARVY) 50-200-25 MG TABLET PO SCH (10:12)
[2021-05-02] MEDS: NICOTINE 14 MG/24 HOURS TOPICAL PATCH TD SCH (10:12)
[2021-05-02] MEDS: ENOXAPARIN NA (PORCINE) 40 MG/0.4 ML DISP.SYRIN SQ SCH (10:12)
[2021-05-02 15:56] VITALS: BMI 22.1
[2021-05-02 17:03] VITALS: BP 125/78; PULSE 59; TEMP 98
== END 2021-05-02 18:05 | disposition home or self-care (01) | DRG 722 ==
LOC: JER 20:51 → JERBED 04-30 04:01 → J8W 04-30 12:45
PROVIDERS: ATTEND Internal Medicine
DX: R50.9 Fever, unspecified (principal); F14.10 Cocaine abuse, uncomplicated; F11.10 Opioid abuse, uncomplicated; J44.9 Chronic obstructive pulmonary disease, unspecified; Z21 Asymptomatic human immunodeficiency virus [HIV] infection status; M54.9 Dorsalgia, unspecified; R10.9 Unspecified abdominal pain; M79.10 Myalgia, unspecified site; R91.8 Other nonspecific abnormal finding of lung field; D64.9 Anemia, unspecified
CPT/HCPCS: 36415; 70492-TC; 71260-TC; 72125-TC; 72128-TC; 72131-TC; 74177-TC; 80048; 80053; 80307; 81003; 82085; 82550; 83605; 83615; 83735; 84100; 84443; 84484; 85025; 85027; 85610; 85651; 85730; 86140; 87040; 87070; 87086; 87651; 87804; 93005; 93010; 97116-GP; 97161-GP; 99285-25; C9803; J0131; Q9967; U0003; U0005

== ENCOUNTER 2022-03-23 11:47 | Inpatient (IN) | payer OTHER ==
[2022-03-23 12:52] VITALS: BMI 22.1
[2022-03-23] MEDS ORDERED: methaDONE HCL 10 MG TABLET (FOR DETOX USE ONLY) PO ONE (14:19)
[2022-03-23] MEDS ORDERED: IBUPROFEN 600 MG TABLET (FP) PO PRN (14:19)
[2022-03-23] MEDS ORDERED: NALOXONE HCL (KLOXXADO) 8 MG SPRAY NS PRN (14:19)
[2022-03-23] MEDS ORDERED: cloNIDine HCL 0.1 MG TABLET PO PRN (14:19)
[2022-03-23] MEDS ORDERED: BISMUTH SUBSALICYLATE 524 MG/30 ML PO PRN (14:19)
[2022-03-23] MEDS ORDERED: chlordiazePOXIDE HCL 25 MG CAPSULE PO PRN (14:19)
[2022-03-23] MEDS ORDERED: ONDANSETRON *ODT* 4 MG TABLET SL PRN (14:19)
[2022-03-23] MEDS ORDERED: METHOCARBAMOL 500 MG TABLET PO PRN (14:19)
[2022-03-23] MEDS ORDERED: ACETAMINOPHEN 325 MG TABLET (FP) PO PRN ×2 (14:19)
[2022-03-23] MEDS ORDERED: IBUPROFEN 400 MG TABLET (FP) PO PRN (14:19)
[2022-03-23] MEDS ORDERED: NICOTINE 10 MG CARTRIDGE (INHALER) IH PRN (14:19)
[2022-03-23] MEDS ORDERED: MAGNESIUM CITRATE 300 ML BOTTLE PO PRN (14:19)
[2022-03-23] MEDS ORDERED: MAGNESIUM HYDROX 2400MG/30ML ORAL SUSPENSION 30 ML CUP PO PRN (14:19)
[2022-03-23] MEDS ORDERED: MAG HYDROX/AL HYDROX/SIMETH 30 ML UNIT-DOSE CUP PO PRN (14:19)
[2022-03-23] MEDS ORDERED: ALBUTEROL SO4 HFA INHALER IH PRN (14:25)
[2022-03-23] MEDS ORDERED: methaDONE HCL 10 MG TABLET (FOR DETOX USE ONLY) ONE (14:44)
[2022-03-23] MEDS ORDERED: INSULIN SLIDING SCALE (NOVOLOG) 1 VIAL SQ SCH (16:30)
[2022-03-23] MEDS: chlordiazePOXIDE HCL 25 MG CAPSULE PO SCH ×2 (17:51→22:05)
[2022-03-23 18:11] LABS: HEMATOCRIT 35.1 % (32.4-45.2); MCH 32.9 pg (25.7-33.7); MCHC 34.1 g/dl (32.0-36.0); MEAN CELL VOLUME 96.6 fl (80-96); MEAN PLT VOLUME 8.9 fl (7.5-11.1); PLATELET COUNT 243 10^3/uL (134-434); RBC 3.64 M/mm3 (3.60-5.2); RDW 14.2 % (11.6-15.6); WHITE BLOOD COUNT 3.3 K/mm3 (4.0-10.0)
[2022-03-23 18:21] LABS: ALBUMIN 3.4 g/dl (3.4-5.0); BLOOD UREA NITROGEN 9.6 mg/dL (7-18); CALCIUM 8.7 mg/dL (8.5-10.1); MAGNESIUM 2.1 mg/dL (1.8-2.4)
[2022-03-23 18:23] LABS: PHOSPHOROUS 3.2 mg/dL (2.5-4.9)
[2022-03-23 18:25] LABS: BILIRUBIN,TOTAL 0.5 mg/dL (0.2-1); CREATININE 0.7 mg/dL (0.55-1.3); TOT PROT 7.4 g/dl (6.4-8.2)
[2022-03-23] MEDS: THIAMINE HCL 100 MG TABLET (FP) PO SCH (22:05)
[2022-03-23] MEDS: MELATONIN 5 MG TABLETS PO SCH (22:05)
[2022-03-23] MEDS: CALCIUM 500MG/VIT-D 200 UNITS COMBO TABLET (FP) PO SCH (22:05)
[2022-03-24] MEDS: chlordiazePOXIDE HCL 25 MG CAPSULE PO SCH ×4 (05:43→22:23)
[2022-03-24] MEDS: BENZOCAINE/MENTHOL (CHLORASEPTIC ) LOZENGE MM PRN (05:46)
[2022-03-24] MEDS ORDERED: CHOLECALCIFEROL (VIT D3) 5000 UNITS (125 MCG) CAP PO SCH (10:00)
[2022-03-24] MEDS: BICTEGRAV/EMTRICIT/TENOFOV (BIKTARVY) 50-200-25 MG TABLET PO SCH (10:30)
[2022-03-24] MEDS: NICOTINE 21 MG/24 HOURS TOPICAL PATCH TD SCH (10:31)
[2022-03-24] MEDS: CALCIUM 500MG/VIT-D 200 UNITS COMBO TABLET (FP) PO SCH ×2 (10:32→22:22)
[2022-03-24] MEDS: PRENATAL VITAMINS W/ FOLIC ACID TABLET (FP) PO SCH (11:14)
[2022-03-24] MEDS: LACTULOSE 20 GM/30 ML UDC (FOR ORAL USE ONLY) PO SCH ×2 (15:03→22:22)
[2022-03-24] MEDS: MELATONIN 5 MG TABLETS PO SCH (22:22)
[2022-03-24] MEDS: THIAMINE HCL 100 MG TABLET (FP) PO SCH (22:22)
[2022-03-25] MEDS: BENZOCAINE/MENTHOL (CHLORASEPTIC ) LOZENGE MM PRN (02:50)
[2022-03-25] MEDS: chlordiazePOXIDE HCL 25 MG CAPSULE PO SCH ×4 (05:45→22:51)
[2022-03-25] MEDS: LACTULOSE 20 GM/30 ML UDC (FOR ORAL USE ONLY) PO SCH ×3 (05:45→22:49)
[2022-03-25] MEDS ORDERED: methaDONE HCL 10 MG TABLET (FOR DETOX USE ONLY) PO ONE (10:00)
[2022-03-25] MEDS: BICTEGRAV/EMTRICIT/TENOFOV (BIKTARVY) 50-200-25 MG TABLET PO SCH (10:09)
[2022-03-25] MEDS: PRENATAL VITAMINS W/ FOLIC ACID TABLET (FP) PO SCH (10:10)
[2022-03-25] MEDS: NICOTINE 21 MG/24 HOURS TOPICAL PATCH TD SCH (10:10)
[2022-03-25] MEDS: CALCIUM 500MG/VIT-D 200 UNITS COMBO TABLET (FP) PO SCH ×2 (13:52→22:50)
[2022-03-25] MEDS: THIAMINE HCL 100 MG TABLET (FP) PO SCH (22:50)
[2022-03-25] MEDS: MELATONIN 5 MG TABLETS PO SCH (22:50)
[2022-03-26] MEDS ORDERED: chlordiazePOXIDE HCL 10 MG CAPSULE PO PRN
[2022-03-26] MEDS: LACTULOSE 20 GM/30 ML UDC (FOR ORAL USE ONLY) PO SCH ×3 (05:13→22:29)
[2022-03-26] MEDS: chlordiazePOXIDE HCL 10 MG CAPSULE PO SCH ×4 (05:13→22:28)
[2022-03-26] MEDS: BICTEGRAV/EMTRICIT/TENOFOV (BIKTARVY) 50-200-25 MG TABLET PO SCH (10:07)
[2022-03-26] MEDS: PRENATAL VITAMINS W/ FOLIC ACID TABLET (FP) PO SCH (10:07)
[2022-03-26] MEDS: NICOTINE 21 MG/24 HOURS TOPICAL PATCH TD SCH (10:07)
[2022-03-26] MEDS: CALCIUM 500MG/VIT-D 200 UNITS COMBO TABLET (FP) PO SCH ×2 (10:12→22:27)
[2022-03-26 13:50] LABS: BLOOD UREA NITROGEN 11.2 mg/dL (7-18); CALCIUM 8.1 mg/dL (8.5-10.1)
[2022-03-26 13:53] LABS: CREATININE 0.8 mg/dL (0.55-1.3)
[2022-03-26 15:40] LABS: PH,URINE 5.5 (5.0-8.0); URINE APPEARANCE CLEAR; URINE BILIRUBIN NEGATIVE (NEGATIVE); URINE COLOR YELLOW; URINE GLUCOSE (UA) NEGATIVE (NEGATIVE); URINE KETONE NEGATIVE (NEGATIVE); URINE LEUK ESTERASE NEGATIVE (NEGATIVE); URINE NITRITE NEGATIVE (NEGATIVE); URINE PROTEIN NEGATIVE (NEGATIVE); URINE UROBILINOGEN 0.2 mg/dL (0.2-1.0)
[2022-03-26] MEDS: THIAMINE HCL 100 MG TABLET (FP) PO SCH (22:26)
[2022-03-26] MEDS: MELATONIN 5 MG TABLETS PO SCH (22:27)
[2022-03-27] MEDS: chlordiazePOXIDE HCL 10 MG CAPSULE PO SCH ×2 (06:43→17:33)
[2022-03-27] MEDS: LACTULOSE 20 GM/30 ML UDC (FOR ORAL USE ONLY) PO SCH (06:43)
[2022-03-27] MEDS ORDERED: methaDONE HCL 10 MG TABLET (FOR DETOX USE ONLY) PO ONE (10:00)
[2022-03-27] MEDS: BICTEGRAV/EMTRICIT/TENOFOV (BIKTARVY) 50-200-25 MG TABLET PO SCH (10:28)
[2022-03-27] MEDS: PRENATAL VITAMINS W/ FOLIC ACID TABLET (FP) PO SCH (10:29)
[2022-03-27] MEDS: CALCIUM 500MG/VIT-D 200 UNITS COMBO TABLET (FP) PO SCH ×2 (10:29→22:26)
[2022-03-27] MEDS: NICOTINE 21 MG/24 HOURS TOPICAL PATCH TD SCH (10:30)
[2022-03-27] MEDS ORDERED: guaiFENesin 200 MG/10 ML 10 ML UNIT-DOSE CUPS PO PRN (11:28)
[2022-03-27 21:25] VITALS: RESP 18
[2022-03-27] MEDS: THIAMINE HCL 100 MG TABLET (FP) PO SCH (22:26)
[2022-03-27] MEDS: MELATONIN 5 MG TABLETS PO SCH (22:27)
[2022-03-28] MEDS ORDERED: chlordiazePOXIDE HCL 10 MG CAPSULE PO ONE (05:00)
[2022-03-28 09:08] VITALS: BP 110/74; PULSE 71; TEMP 96.9
[2022-03-28] MEDS: NICOTINE 21 MG/24 HOURS TOPICAL PATCH TD SCH (10:00)
[2022-03-28] MEDS: PRENATAL VITAMINS W/ FOLIC ACID TABLET (FP) PO SCH (10:00)
[2022-03-28] MEDS: CALCIUM 500MG/VIT-D 200 UNITS COMBO TABLET (FP) PO SCH (10:00)
[2022-03-28] MEDS: BICTEGRAV/EMTRICIT/TENOFOV (BIKTARVY) 50-200-25 MG TABLET PO SCH (10:02)
== END 2022-03-28 10:10 | disposition home or self-care (01) | DRG 773 ==
LOC: YASAS 11:47 → Y3N 14:51
PROVIDERS: ADMIT Allergy & Immunology; ATTEND Surgery
PROC: HZ2ZZZZ Detoxification Services for Substance Abuse Treatment (ICD-10-PCS; principal; 2022-03-23)
DX: F11.23 Opioid dependence with withdrawal (principal); F10.230 Alcohol dependence with withdrawal, uncomplicated; F14.20 Cocaine dependence, uncomplicated; F12.20 Cannabis dependence, uncomplicated; F17.210 Nicotine dependence, cigarettes, uncomplicated; Z21 Asymptomatic human immunodeficiency virus [HIV] infection status; E72.20 Disorder of urea cycle metabolism, unspecified; J45.30 Mild persistent asthma, uncomplicated; K21.9 Gastro-esophageal reflux disease without esophagitis; R05.9 Cough, unspecified; R30.0 Dysuria
CPT/HCPCS: 36415; 71046-TC-FY; 80048; 80053; 81003; 82140; 82962; 83735; 84100; 85027; 86780; 87086; C9803-CS; U0003; U0005

== ENCOUNTER 2022-06-16 06:49 | Observation (INO) | payer OTHER ==
[2022-06-16] MEDS ORDERED: IBUPROFEN 600 MG TABLET (FP) PO ONE ×2 (08:44→09:08)
[2022-06-16 09:17] LABS: THROAT:GRP A STREP NOT DETECTED (NOTDETECTED)
[2022-06-16 09:35] LABS: BASO % 0.6 % (0-2.0); EOS % 0.9 % (0-4.5); HEMATOCRIT 27.8 % (32.4-45.2); HEMOGLOBIN 9.4 GM/dL (10.7-15.3); LYMPH % 20.6 % (8-40); MCH 32.1 pg (25.7-33.7); MCHC 33.8 g/dl (32.0-36.0); MEAN CELL VOLUME 94.8 fl (80-96); MEAN PLT VOLUME 7.8 fl (7.5-11.1); MONO % 12.5 % (3.8-10.2); NEUT % 65.4 % (42.8-82.8); PLATELET COUNT 184 10^3/uL (134-434); RBC 2.93 M/mm3 (3.60-5.2); RDW 13.8 % (11.6-15.6); WHITE BLOOD COUNT 9.4 K/mm3 (4.0-10.0)
[2022-06-16 09:41] LABS: INR 1.03 (0.83-1.09); PROTHROMBIN TIME (PATIENT) 11.9 SEC (9.7-13.0)
[2022-06-16 09:44] LABS: ACTIVATED PTT 30.2 SECONDS (25.2-36.5)
[2022-06-16 10:29] LABS: ALBUMIN 3.2 g/dl (3.4-5.0); BLOOD UREA NITROGEN 20.2 mg/dL (7-18); CALCIUM 8.3 mg/dL (8.5-10.1); MAGNESIUM 1.8 mg/dL (1.8-2.4)
[2022-06-16 10:32] LABS: CREATININE 0.9 mg/dL (0.55-1.3)
[2022-06-16 10:35] LABS: BILIRUBIN,TOTAL 1.1 mg/dL (0.2-1); TOT PROT 6.9 g/dl (6.4-8.2)
[2022-06-16 13:27] LABS: EPI CELLS 11 /uL (0-25.1); HYALINE CASTS 0 /uL (0-3.1); URINE APPEARANCE CLEAR; URINE BACTERIA 237 /uL (0-1359); URINE BILIRUBIN NEGATIVE (NEGATIVE); URINE COLOR YELLOW; URINE GLUCOSE (UA) NEGATIVE (NEGATIVE); URINE KETONE TRACE (NEGATIVE); URINE LEUK ESTERASE NEGATIVE (NEGATIVE); URINE NITRITE NEGATIVE (NEGATIVE); URINE PROTEIN 1+ (NEGATIVE); URINE RBC 10 /uL (0-23.9); URINE UROBILINOGEN 0.2 mg/dL (0.2-1.0); URINE WBC 9 /uL (0-25.8)
[2022-06-16] MEDS ORDERED: ALBUTEROL SO4 HFA INHALER IH PRN (15:34)
[2022-06-16] MEDS ORDERED: ACETAMINOPHEN 325 MG TABLET (FP) PO PRN (15:35)
[2022-06-16 16:17] VITALS: RESP 18
[2022-06-17 09:33] LABS: BASO % 0.4 % (0-2.0); EOS % 1.4 % (0-4.5); HEMATOCRIT 27.2 % (32.4-45.2); HEMOGLOBIN 9.3 GM/dL (10.7-15.3); LYMPH % 17.7 % (8-40); MCH 32.6 pg (25.7-33.7); MCHC 34.1 g/dl (32.0-36.0); MEAN CELL VOLUME 95.6 fl (80-96); MEAN PLT VOLUME 8.9 fl (7.5-11.1); MONO % 13.6 % (3.8-10.2); NEUT % 66.9 % (42.8-82.8); PLATELET COUNT 198 10^3/uL (134-434); RBC 2.85 M/mm3 (3.60-5.2); RDW 13.9 % (11.6-15.6); WHITE BLOOD COUNT 7.4 K/mm3 (4.0-10.0)
[2022-06-17 10:46] LABS: ALBUMIN 2.8 g/dl (3.4-5.0); BLOOD UREA NITROGEN 10.8 mg/dL (7-18); CALCIUM 8.2 mg/dL (8.5-10.1)
[2022-06-17 10:48] LABS: CREATININE 0.7 mg/dL (0.55-1.3)
[2022-06-17 10:50] LABS: BILIRUBIN,TOTAL 0.6 mg/dL (0.2-1); TOT PROT 6.2 g/dl (6.4-8.2)
[2022-06-17] MEDS: BICTEGRAV/EMTRICIT/TENOFOV (BIKTARVY) 50-200-25 MG TABLET PO SCH (11:22)
[2022-06-17] MEDS ORDERED: BISACODYL 5 MG TABLET.DR (FP) PO ONE (12:05)
[2022-06-17] MEDS ORDERED: POLYETHYLENE GLYCOL (HEALTHYLAX) 3350 17 GM PACKET PO SCH (12:15)
[2022-06-17] MEDS: DEXTROSE 5%-0.45% SALINE 1,000 ML IV SCH (13:36)
[2022-06-17] MEDS ORDERED: POLYETHYLENE GLYCOL 3350 255 GM BTL PO ONE (14:00)
[2022-06-18] MEDS: DEXTROSE 5%-0.45% SALINE 1,000 ML IV SCH ×2 (05:27→12:15)
[2022-06-18 09:42] LABS: BASO % 0.4 % (0-2.0); HEMATOCRIT 31.4 % (32.4-45.2); HEMOGLOBIN 10.8 GM/dL (10.7-15.3); LYMPH % 21.7 % (8-40); MCH 33.1 pg (25.7-33.7); MCHC 34.2 g/dl (32.0-36.0); MEAN CELL VOLUME 96.6 fl (80-96); MEAN PLT VOLUME 8.4 fl (7.5-11.1); MONO % 10.4 % (3.8-10.2); NEUT % 66.5 % (42.8-82.8); PLATELET COUNT 254 10^3/uL (134-434); RBC 3.25 M/mm3 (3.60-5.2); RDW 14.3 % (11.6-15.6)
[2022-06-18] MEDS: BICTEGRAV/EMTRICIT/TENOFOV (BIKTARVY) 50-200-25 MG TABLET PO SCH (09:56)
[2022-06-18 10:33] LABS: CALCIUM 8.5 mg/dL (8.5-10.1)
[2022-06-18 10:34] LABS: ALBUMIN 3.2 g/dl (3.4-5.0); BLOOD UREA NITROGEN 4.1 mg/dL (7-18)
[2022-06-18 10:37] LABS: CREATININE 0.8 mg/dL (0.55-1.3)
[2022-06-18 10:38] LABS: BILIRUBIN,TOTAL 0.5 mg/dL (0.2-1); TOT PROT 7.5 g/dl (6.4-8.2)
[2022-06-18 13:07] VITALS: BMI 21.0
[2022-06-18] MEDS: POLYETHYLENE GLYCOL (HEALTHYLAX) 3350 17 GM PACKET PO SCH ×2 (13:36→21:18)
[2022-06-18] MEDS: MAG HYDROX/ALH/SMC/DPHA/LIDO 240 ML MOUTHWASH MM SCH (18:21)
[2022-06-18] MEDS: PHENYLEPHRINE HCL/COCOA BUTTER 1 EACH SUPP.RECT RC SCH (22:09)
[2022-06-19] MEDS: PHENYLEPHRINE HCL/COCOA BUTTER 1 EACH SUPP.RECT RC SCH ×2 (00:19→10:13)
[2022-06-19] MEDS: MAG HYDROX/ALH/SMC/DPHA/LIDO 240 ML MOUTHWASH MM SCH ×3 (01:17→12:33)
[2022-06-19] MEDS: POLYETHYLENE GLYCOL (HEALTHYLAX) 3350 17 GM PACKET PO SCH ×2 (06:43→15:02)
[2022-06-19] MEDS: BICTEGRAV/EMTRICIT/TENOFOV (BIKTARVY) 50-200-25 MG TABLET PO SCH (10:10)
[2022-06-19 10:20] LABS: BASO % 0.6 % (0-2.0); EOS % 1.3 % (0-4.5); HEMATOCRIT 30.8 % (32.4-45.2); HEMOGLOBIN 10.4 GM/dL (10.7-15.3); LYMPH % 24.6 % (8-40); MCH 32.4 pg (25.7-33.7); MCHC 33.6 g/dl (32.0-36.0); MEAN CELL VOLUME 96.4 fl (80-96); MEAN PLT VOLUME 8.7 fl (7.5-11.1); MONO % 8.5 % (3.8-10.2); PLATELET COUNT 272 10^3/uL (134-434); RBC 3.19 M/mm3 (3.60-5.2); RDW 14.4 % (11.6-15.6); WHITE BLOOD COUNT 6.1 K/mm3 (4.0-10.0)
[2022-06-19 11:00] LABS: BILIRUBIN,TOTAL 0.5 mg/dL (0.2-1); TOT PROT 7.2 g/dl (6.4-8.2)
[2022-06-19 11:01] LABS: BLOOD UREA NITROGEN 12.3 mg/dL (7-18); CALCIUM 8.9 mg/dL (8.5-10.1)
[2022-06-19 11:02] LABS: CREATININE 0.8 mg/dL (0.55-1.3); MAGNESIUM 2.1 mg/dL (1.8-2.4); PHOSPHOROUS 2.6 mg/dL (2.5-4.9)
[2022-06-19 15:48] VITALS: BP 148/73; PULSE 65; TEMP 99.7
== END 2022-06-19 15:51 | disposition home or self-care (01) ==
LOC: JER 06:49 → UNDOADMOB 12:17 → INTOOBSV 12:17 → JERBED 12:17 → J6S 16:40 → INTOOBSV 06-18 09:57 → OBSVTOIN 06-18 09:57 → J6S 06-19 14:29 → JERBED 06-19 14:29
PROVIDERS: ADMIT Internal Medicine; ATTEND Internal Medicine
DX: K92.2 Gastrointestinal hemorrhage, unspecified (principal); R16.0 Hepatomegaly, not elsewhere classified; F19.10 Other psychoactive substance abuse, uncomplicated; K59.00 Constipation, unspecified; K92.1 Melena; K63.3 Ulcer of intestine; B20 Human immunodeficiency virus [HIV] disease; J45.909 Unspecified asthma, uncomplicated; F41.9 Anxiety disorder, unspecified; Z91.14 Patient's other noncompliance with medication regimen; B19.20 Unspecified viral hepatitis C without hepatic coma; F17.210 Nicotine dependence, cigarettes, uncomplicated
CPT/HCPCS: 0241U-QW; 36415; 71045-TC-FY; 74177-TC; 76705-TC; 80053; 81003; 82272; 82607; 82746; 83540; 83550; 83690; 83735; 84100; 84484; 85025; 85610; 85730; 86359; 86360; 86705; 86708; 86803; 87086; 87517; 87651; 93005; 93010; 99285-25; G0378

== ENCOUNTER 2022-10-31 09:29 | Day surgery (SDC) | payer OTHER ==
[2022-10-26 12:09] VITALS: BMI 28.5
[2022-10-31 12:12] VITALS: RESP 20; TEMP 97.1
[2022-10-31 12:26] VITALS: BP 117/75; PULSE 60
== END 2022-10-31 13:30 | disposition home or self-care (01) ==
LOC: FASU-ENDO 09:29
PROVIDERS: ATTEND Internal Medicine Gastroenterology
PROC: 0DBP8ZX Excision of Rectum, Via Natural or Artificial Opening Endoscopic, Diagnostic (ICD-10-PCS; principal; 2022-10-31 11:33)
DX: D12.8 Benign neoplasm of rectum (principal); K64.1 Second degree hemorrhoids; K64.8 Other hemorrhoids; K57.30 Diverticulosis of large intestine without perforation or abscess without bleeding; K92.1 Melena
CPT/HCPCS: 88305-TC

== ENCOUNTER 2022-12-19 04:02 | Day surgery (SDC) | payer OTHER ==
[2022-12-14 15:52] VITALS: BMI 21.0
[2022-12-19] MEDS ORDERED: PROPOFOL 40 ML ONE (12:44)
[2022-12-19] MEDS ORDERED: MIDAZOLAM HCL 2 MG/2 ML SINGLE DOSE VIAL ONE (12:45)
[2022-12-19] MEDS ORDERED: SUCCINYLCHOLINE CHLORIDE 200 MG/10 ML SYRINGE ONE (12:49)
[2022-12-19] MEDS ORDERED: ceFAZolin SODIUM 1 GM VIAL IVPB ONE (13:57)
[2022-12-19] MEDS ORDERED: ONDANSETRON 4 MG/2 ML VIAL ONE (14:02)
[2022-12-19] MEDS ORDERED: ceFAZolin SODIUM 1 GM VIAL ONE (14:02)
[2022-12-19] MEDS ORDERED: DEXAMETHASONE SOD PHOSPHATE 4 MG/1 ML VIAL ONE (14:02)
[2022-12-19] MEDS ORDERED: oxyCODONE HCL 5 MG TABLET PO PRN (14:39)
[2022-12-19] MEDS ORDERED: LACTATED RINGERS SOLUTION 1,000 ML IV SCH (14:45)
[2022-12-19 16:03] VITALS: TEMP 97.7
[2022-12-19 16:22] VITALS: BP 137/86; PULSE 53; RESP 18
== END 2022-12-19 18:05 | disposition home or self-care (01) ==
LOC: JASU-SURG 04:02
PROVIDERS: ATTEND Obstetrics & Gynecology
PROC: 0UDB8ZX Extraction of Endometrium, Via Natural or Artificial Opening Endoscopic, Diagnostic (ICD-10-PCS; principal; 2022-12-19 13:30)
DX: N85.00 Endometrial hyperplasia, unspecified (principal)
CPT/HCPCS: 88305-TC; 94760

== ENCOUNTER 2022-12-24 20:09 | Emergency (ER) | payer OTHER ==
[2022-12-24 20:17] VITALS: BP 120/75; PULSE 58; RESP 19; TEMP 98.3; BMI 31.8
[2022-12-25] MEDS ORDERED: CEPHALEXIN MONOHYDRATE 500 MG CAPSULE (UD) PO ONE (02:50)
[2022-12-25] MEDS ORDERED: CEPHALEXIN MONOHYDRATE 500 MG CAPSULE (UD) ONE (02:57)
== END 2022-12-25 03:04 | disposition home or self-care (01) ==
LOC: JER 20:09
DX: D17.1 Benign lipomatous neoplasm of skin and subcutaneous tissue of trunk (principal); R22.2 Localized swelling, mass and lump, trunk; R07.89 Other chest pain
CPT/HCPCS: 76604; 99284-25

== ENCOUNTER 2023-06-06 22:21 | Emergency (ER) | payer OTHER ==
[2023-06-06 22:28] VITALS: BMI 30.9
[2023-06-06 23:22] LABS: BASO % 0.5 % (0-2.0); HEMATOCRIT 37.6 % (32.4-45.2); HEMOGLOBIN 12.6 GM/dL (10.7-15.3); LYMPH % 33.2 % (8-40); MCH 30.3 pg (25.7-33.7); MCHC 33.4 g/dl (32.0-36.0); MEAN CELL VOLUME 90.7 fl (80-96); MONO % 8.8 % (3.8-10.2); NEUT % 56.5 % (42.8-82.8); PLATELET COUNT 269 10^3/uL (134-434); RBC 4.15 M/mm3 (3.60-5.2); RDW 16.6 % (11.6-15.6); WHITE BLOOD COUNT 6.4 K/mm3 (4.0-10.0)
[2023-06-06 23:24] LABS: EPI CELLS >36 /uL (0-25.1); HYALINE CASTS 0 /uL (0-3.1); URINE APPEARANCE CLOUDY; URINE BACTERIA 326 /uL (0-1359); URINE BILIRUBIN NEGATIVE (NEGATIVE); URINE COLOR YELLOW; URINE GLUCOSE (UA) NEGATIVE (NEGATIVE); URINE KETONE NEGATIVE (NEGATIVE); URINE LEUK ESTERASE 3+ (NEGATIVE); URINE NITRITE NEGATIVE (NEGATIVE); URINE PROTEIN 1+ (NEGATIVE); URINE RBC 50 /uL (0-23.9); URINE UROBILINOGEN 0.2 mg/dL (0.2-1.0); URINE WBC 1570 /uL (0-25.8)
[2023-06-06 23:48] LABS: CHLORIDE 110 mmol/L (98-107); SODIUM 132 mmol/L (136-145)
[2023-06-06 23:49] LABS: CALCIUM 7.4 mg/dL (8.5-10.1)
[2023-06-06 23:50] LABS: BLOOD UREA NITROGEN 12.9 mg/dL (7-18); CO2 25 mmol/L (21-32); GLUCOSE,RANDOM 103 mg/dL (74-106); MAGNESIUM 1.9 mg/dL (1.8-2.4)
[2023-06-06 23:54] LABS: CREATININE 0.9 mg/dL (0.55-1.3)
[2023-06-06 23:55] LABS: BILIRUBIN,TOTAL 0.2 mg/dL (0.2-1); TOT PROT 8.2 g/dl (6.4-8.2)
[2023-06-06 23:56] LABS: ALK PHOS 83 U/L (45-117); ANION GAP -4 mmol/L (4-13); POTASSIUM > 10.0 mmol/L (3.5-5.1); SGOT/AST 81 U/L (15-37); SGPT/ALT 30 U/L (13-61)
[2023-06-07] MEDS ORDERED: AZITHROMYCIN IVPB 500 MG in DEXTROSE 5%-WATER - 250 ML IVPB ONE (00:20)
[2023-06-07] MEDS ORDERED: CEFTRIAXONE 1 GM/50 ML BAG ONE (00:37)
[2023-06-07] MEDS ORDERED: AZITHROMYCIN IVPB 500 MG/250 ML BAG IVPB ONE (00:37)
[2023-06-07 01:09] LABS: POTASSIUM 4.7 mmol/L (3.5-5.1)
[2023-06-07 01:11] LABS: CALCIUM 8.3 mg/dL (8.5-10.1)
[2023-06-07 01:12] LABS: ALBUMIN 2.8 g/dl (3.4-5.0); BLOOD UREA NITROGEN 13.4 mg/dL (7-18)
[2023-06-07 01:15] LABS: CREATININE 0.8 mg/dL (0.55-1.3)
[2023-06-07 01:16] LABS: BILIRUBIN,TOTAL 0.3 mg/dL (0.2-1)
[2023-06-07 01:17] LABS: TOT PROT 6.7 g/dl (6.4-8.2)
[2023-06-07 02:01] VITALS: BP 150/91; PULSE 65; RESP 19; TEMP 98.6
== END 2023-06-07 02:32 | disposition home or self-care (01) ==
LOC: JER 22:21
DX: R10.30 Lower abdominal pain, unspecified (principal); R30.0 Dysuria; R05.9 Cough, unspecified; K92.1 Melena; R07.9 Chest pain, unspecified; R42 Dizziness and giddiness; J18.9 Pneumonia, unspecified organism; N39.0 Urinary tract infection, site not specified; Z20.822 Contact with and (suspected) exposure to COVID-19
CPT/HCPCS: 0241U-QW; 36415; 71045-TC-FY; 80053; 81003; 83605; 83735; 84484; 85025; 87086; 93005; 93010; 99285-25

== ENCOUNTER 2023-06-26 00:41 | Inpatient (IN) | payer OTHER ==
[2023-06-26] MEDS: LORazepam 2 MG/ML SDV VIAL IVPUSH ONE (01:42)
[2023-06-26] MEDS: LACTATED RINGERS SOLUTION 1000 ML INFUS.BAG IV ONE (01:42)
[2023-06-26 01:57] LABS: BASO % 0.5 % (0-2.0); EOS % 1.9 % (0-4.5); LYMPH % 30.5 % (8-40); MCHC 34.3 g/dl (32.0-36.0); MEAN CELL VOLUME 90.3 fl (80-96); MEAN PLT VOLUME 8.5 fl (7.5-11.1); MONO % 11.8 % (3.8-10.2); NEUT % 55.3 % (42.8-82.8); PLATELET COUNT 249 10^3/uL (134-434); RBC 3.87 M/mm3 (3.60-5.2); RDW 16.3 % (11.6-15.6); WHITE BLOOD COUNT 7.5 K/mm3 (4.0-10.0)
[2023-06-26 02:17] LABS: CHLORIDE 106 mmol/L (98-107); SODIUM 130 mmol/L (136-145)
[2023-06-26 02:19] LABS: CALCIUM 8.1 mg/dL (8.5-10.1)
[2023-06-26 02:20] LABS: ALBUMIN 3.5 g/dl (3.4-5.0); BLOOD UREA NITROGEN 14.6 mg/dL (7-18); CO2 26 mmol/L (21-32); GLUCOSE,RANDOM 97 mg/dL (74-106)
[2023-06-26 02:24] LABS: BILIRUBIN,TOTAL 0.7 mg/dL (0.2-1)
[2023-06-26 02:25] LABS: TOT PROT 8.1 g/dl (6.4-8.2)
[2023-06-26 02:27] LABS: ALK PHOS 75 U/L (45-117)
[2023-06-26 02:57] LABS: SGOT/AST 95 U/L (15-37); SGPT/ALT 33 U/L (13-61)
[2023-06-26 03:01] LABS: INR 1.05 (0.83-1.09); PROTHROMBIN TIME (PATIENT) 12.2 SEC (9.7-13.0)
[2023-06-26 03:04] LABS: ACTIVATED PTT 29.2 SECONDS (25.2-36.5)
[2023-06-26 03:09] LABS: POTASSIUM 3.7 mmol/L (3.5-5.1)
[2023-06-26 03:11] LABS: ALBUMIN 3.2 g/dl (3.4-5.0); BLOOD UREA NITROGEN 12.7 mg/dL (7-18); CALCIUM 8.5 mg/dL (8.5-10.1)
[2023-06-26 03:14] LABS: CREATININE 0.8 mg/dL (0.55-1.3)
[2023-06-26 03:16] LABS: BILIRUBIN,TOTAL 0.7 mg/dL (0.2-1); TOT PROT 6.6 g/dl (6.4-8.2)
[2023-06-26 04:02] LABS: INR 1.04 (0.83-1.09); PROTHROMBIN TIME (PATIENT) 12.1 SEC (9.7-13.0)
[2023-06-26 04:05] LABS: ACTIVATED PTT 31.9 SECONDS (25.2-36.5)
[2023-06-26 04:10] LABS: POTASSIUM 4.3 mmol/L (3.5-5.1)
[2023-06-26 04:12] LABS: CALCIUM 8.6 mg/dL (8.5-10.1)
[2023-06-26 04:13] LABS: ALBUMIN 3.3 g/dl (3.4-5.0); BLOOD UREA NITROGEN 12.3 mg/dL (7-18)
[2023-06-26 04:15] LABS: CREATININE 0.9 mg/dL (0.55-1.3)
[2023-06-26 04:18] LABS: BILIRUBIN,TOTAL 0.7 mg/dL (0.2-1); TOT PROT 6.7 g/dl (6.4-8.2)
[2023-06-26] MEDS ORDERED: CEFTRIAXONE 1 GM/50 ML BAG ONE (05:44)
[2023-06-26] MEDS: CEFTRIAXONE 1 GM in DEXTROSE 5%-WATER - 100 ML IVPB ONE (05:49)
[2023-06-26 06:37] LABS: URINE APPEARANCE CLEAR; URINE BILIRUBIN NEGATIVE (NEGATIVE); URINE COLOR YELLOW; URINE GLUCOSE (UA) NEGATIVE (NEGATIVE); URINE KETONE 1+ (NEGATIVE); URINE LEUK ESTERASE NEGATIVE (NEGATIVE); URINE NITRITE NEGATIVE (NEGATIVE); URINE PROTEIN NEGATIVE (NEGATIVE); URINE UROBILINOGEN 0.2 mg/dL (0.2-1.0)
[2023-06-26] MEDS ORDERED: ALBUTEROL SO4 HFA INHALER IH PRN (10:07)
[2023-06-26] MEDS: DEXTROSE 5%-LACTATED RINGERS 1,000 ML IV SCH (12:47)
[2023-06-26 13:51] LABS: PHENCYCLIDINE,URINE NEGATIVE (NEGATIVE); URINE BARBITURATES NEGATIVE (NEGATIVE)
[2023-06-26 13:52] LABS: METHADONE, UR NEGATIVE (NEGATIVE); URINE AMPHETAMINES NEGATIVE (NEGATIVE); URINE BENZODIAZEPINES NEGATIVE (NEGATIVE)
[2023-06-26 13:53] LABS: COCAINE, UR POSITIVE (NEGATIVE); OPIATES, URI POSITIVE (NEGATIVE)
[2023-06-27 01:59] VITALS: BMI 31.2
[2023-06-27 07:26] LABS: BASO % 0.3 % (0-2.0); EOS % 1.8 % (0-4.5); HEMATOCRIT 34.4 % (32.4-45.2); HEMOGLOBIN 11.8 GM/dL (10.7-15.3); LYMPH % 27.9 % (8-40); MCHC 34.3 g/dl (32.0-36.0); MEAN CELL VOLUME 90.4 fl (80-96); MEAN PLT VOLUME 9.5 fl (7.5-11.1); MONO % 9.3 % (3.8-10.2); NEUT % 60.7 % (42.8-82.8); PLATELET COUNT 252 10^3/uL (134-434); RDW 16.8 % (11.6-15.6); WHITE BLOOD COUNT 5.2 K/mm3 (4.0-10.0)
[2023-06-27 07:48] LABS: POTASSIUM 3.9 mmol/L (3.5-5.1)
[2023-06-27 08:00] LABS: ALBUMIN 2.9 g/dl (3.4-5.0); MAGNESIUM 1.8 mg/dL (1.8-2.4)
[2023-06-27 08:01] LABS: BLOOD UREA NITROGEN 8.2 mg/dL (7-18)
[2023-06-27 08:03] LABS: CREATININE 0.7 mg/dL (0.55-1.3); PHOSPHOROUS 3.2 mg/dL (2.5-4.9)
[2023-06-27 08:04] LABS: TOT PROT 6.3 g/dl (6.4-8.2)
[2023-06-27 08:05] LABS: BILIRUBIN,TOTAL 0.6 mg/dL (0.2-1)
[2023-06-27] MEDS: CEFTRIAXONE 1 GM in DEXTROSE 5%-WATER - 50 ML IVPB SCH (10:14)
[2023-06-27] MEDS: ENOXAPARIN NA (PORCINE) 40 MG/0.4 ML DISP.SYRIN SQ SCH (10:14)
[2023-06-27] MEDS: BICTEGRAV/EMTRICIT/TENOFOV (BIKTARVY) 50-200-25 MG TABLET PO SCH (12:50)
[2023-06-27 16:12] LABS: N-TERMINAL BNP 46.4 pg/ml (5-125)
[2023-06-27 20:28] VITALS: RESP 18
[2023-06-28 05:11] VITALS: TEMP 98.2
[2023-06-28 07:28] LABS: BASO % 0.6 % (0-2.0); EOS % 2.7 % (0-4.5); LYMPH % 28.5 % (8-40); MCH 30.6 pg (25.7-33.7); MCHC 33.3 g/dl (32.0-36.0); MEAN CELL VOLUME 91.9 fl (80-96); MEAN PLT VOLUME 8.9 fl (7.5-11.1); NEUT % 57.2 % (42.8-82.8); PLATELET COUNT 217 10^3/uL (134-434); RDW 16.9 % (11.6-15.6); WHITE BLOOD COUNT 4.1 K/mm3 (4.0-10.0)
[2023-06-28 07:34] LABS: POTASSIUM 3.6 mmol/L (3.5-5.1)
[2023-06-28 07:46] LABS: CALCIUM 8.2 mg/dL (8.5-10.1)
[2023-06-28 07:47] LABS: ALBUMIN 2.7 g/dl (3.4-5.0); BLOOD UREA NITROGEN 9.3 mg/dL (7-18); MAGNESIUM 1.7 mg/dL (1.8-2.4)
[2023-06-28 07:50] LABS: CREATININE 0.7 mg/dL (0.55-1.3); PHOSPHOROUS 2.3 mg/dL (2.5-4.9)
[2023-06-28 07:52] LABS: BILIRUBIN,TOTAL 0.6 mg/dL (0.2-1); TOT PROT 6.1 g/dl (6.4-8.2)
[2023-06-28 12:09] VITALS: BP 125/91; PULSE 75
== END 2023-06-28 12:47 | disposition home or self-care (01) | DRG 244 ==
LOC: JER 00:41 → JERBED 05:42 → J4W 06-27 01:25 → OBSVTOIN 06-27 08:40
PROVIDERS: ADMIT Internal Medicine; ATTEND Internal Medicine
DX: K57.32 Diverticulitis of large intestine without perforation or abscess without bleeding (principal); G92.9 Unspecified toxic encephalopathy; J45.909 Unspecified asthma, uncomplicated; F19.10 Other psychoactive substance abuse, uncomplicated; J98.11 Atelectasis; F10.20 Alcohol dependence, uncomplicated; Z21 Asymptomatic human immunodeficiency virus [HIV] infection status
CPT/HCPCS: 36415; 70450-TC; 71045-TC-FY; 74177-TC; 80053; 80061; 80307; 81003; 82272; 82550; 82553; 83036; 83605; 83735; 83880; 84100; 84439; 84443; 84484; 85025; 85610; 85730; 86140; 87086; 93005; 93010; 93306-TC; 99285-25; G0378

== ENCOUNTER 2023-11-06 00:49 | Emergency (ER) | payer OTHER ==
[2023-11-06 01:01] VITALS: BP 114/73; PULSE 74; RESP 16; TEMP 98.5; BMI 26.5
[2023-11-06] MEDS ORDERED: LIDOCAINE 4% PATCH TP ONE ×2 (03:21→22:00)
[2023-11-06] MEDS ORDERED: diazePAM 5 MG TABLET ONE (03:21)
[2023-11-06] MEDS ORDERED: KETOROLAC TROMETHAMINE 15 MG/ML VIAL ONE (03:21)
[2023-11-06] MEDS ORDERED: ACETAMINOPHEN 500 MG TABLET (FP) ONE (03:23)
[2023-11-06] MEDS: LIDOCAINE 4% PATCH TP ONE (03:25)
[2023-11-06] MEDS: diazePAM 5 MG TABLET PO ONE (03:27)
[2023-11-06] MEDS: ACETAMINOPHEN 500 MG TABLET (FP) PO ONE (03:27)
[2023-11-06] MEDS: KETOROLAC TROMETHAMINE 15 MG/ML VIAL IM ONE (03:27)
[2023-11-06 05:02] LABS: EPI CELLS >36 /uL (0-25.1); HYALINE CASTS 7 /uL (0-3.1); URINE APPEARANCE CLEAR; URINE BACTERIA 94 /uL (0-1359); URINE BILIRUBIN NEGATIVE (NEGATIVE); URINE COLOR YELLOW; URINE GLUCOSE (UA) NEGATIVE (NEGATIVE); URINE KETONE NEGATIVE (NEGATIVE); URINE LEUK ESTERASE TRACE (NEGATIVE); URINE NITRITE NEGATIVE (NEGATIVE); URINE PROTEIN NEGATIVE (NEGATIVE); URINE RBC 13 /uL (0-23.9); URINE UROBILINOGEN 0.2 mg/dL (0.2-1.0); URINE WBC 59 /uL (0-25.8)
[2023-11-06] MEDS ORDERED: LIDOCAINE 4% PATCH TP SCH (10:00)
[2023-11-06] MEDS ORDERED: LIDOCAINE PATCH REMOVAL MC ONE (22:00)
[2023-11-06] MEDS ORDERED: LIDOCAINE PATCH REMOVAL MC SCH ×2 (22:00)
== END 2023-11-06 06:11 | disposition home or self-care (01) ==
LOC: JER 00:49
PROC: 3E0133Z Introduction of Anti-inflammatory into Subcutaneous Tissue, Percutaneous Approach (ICD-10-PCS; principal; 2023-11-06)
DX: M54.31 Sciatica, right side (principal)
CPT/HCPCS: 81003; 87086; 99284-25

== ENCOUNTER 2023-11-23 01:49 | Emergency (ER) | payer OTHER ==
[2023-11-23 02:00] VITALS: BMI 26.5
[2023-11-23] MEDS: morphine CARPU-JECT 4 MG/1 ML DISP.SYRIN IVPUSH ONE (03:28)
[2023-11-23] MEDS ORDERED: ACETAMINOPHEN INJECTION 100 ML IVPB ONE (03:48)
[2023-11-23 04:22] LABS: BASO % 0.6 % (0-2.0); EOS % 2.4 % (0-4.5); HEMATOCRIT 33.8 % (32.4-45.2); HEMOGLOBIN 11.5 GM/dL (10.7-15.3); LYMPH % 33.5 % (8-40); MCH 32.9 pg (25.7-33.7); MEAN CELL VOLUME 96.7 fl (80-96); MEAN PLT VOLUME 9.2 fl (7.5-11.1); MONO % 9.8 % (3.8-10.2); NEUT % 53.7 % (42.8-82.8); PLATELET COUNT 191 10^3/uL (134-434); WHITE BLOOD COUNT 5.2 K/mm3 (4.0-10.0)
[2023-11-23] MEDS: ACETAMINOPHEN 1000 MG/100 ML BAG IVPB ONE (04:43)
[2023-11-23 04:45] LABS: POTASSIUM 3.3 mmol/L (3.5-5.1)
[2023-11-23 04:48] LABS: BLOOD UREA NITROGEN 16.8 mg/dL (7-18); CALCIUM 8.5 mg/dL (8.5-10.1)
[2023-11-23 04:49] LABS: ALBUMIN 3.4 g/dl (3.4-5.0)
[2023-11-23 04:50] LABS: INR 0.91 (0.83-1.09); PROTHROMBIN TIME (PATIENT) 10.5 SEC (9.7-13.0)
[2023-11-23 04:52] LABS: CREATININE 0.9 mg/dL (0.55-1.3)
[2023-11-23 04:53] LABS: BILIRUBIN,TOTAL 0.9 mg/dL (0.2-1); TOT PROT 7.1 g/dl (6.4-8.2)
[2023-11-23 04:53] LABS: ACTIVATED PTT 31.4 SECONDS (25.2-36.5)
[2023-11-23] MEDS ORDERED: LOSARTAN POTASSIUM 50 MG TABLET ONE (05:58)
[2023-11-23] MEDS ORDERED: MAGNESIUM 1GM/D5W - 1 GM/100 ML IVPB IVPB ONE (05:59)
[2023-11-23] MEDS: LOSARTAN POTASSIUM 50 MG TABLET PO ONE (06:06)
[2023-11-23] MEDS: MAGNESIUM SULF 50% (8.12 MEQ/2 ML-1 GM VIAL) IVPB ONE (06:06)
[2023-11-23] MEDS ORDERED: POTASSIUM CHLORIDE ORAL LIQUID 20 MEQ/15 ML ONE (07:29)
[2023-11-23] MEDS: POTASSIUM CHLORIDE ORAL LIQUID 20 MEQ/15 ML PO ONE (07:36)
[2023-11-23 07:57] LABS: MAGNESIUM 2.1 mg/dL (1.8-2.4)
[2023-11-23 08:09] VITALS: TEMP 97.4
[2023-11-23 11:41] LABS: URINE APPEARANCE CLEAR; URINE BILIRUBIN NEGATIVE (NEGATIVE); URINE COLOR YELLOW; URINE GLUCOSE (UA) NEGATIVE (NEGATIVE); URINE KETONE NEGATIVE (NEGATIVE); URINE LEUK ESTERASE NEGATIVE (NEGATIVE); URINE NITRITE NEGATIVE (NEGATIVE); URINE PROTEIN NEGATIVE (NEGATIVE); URINE UROBILINOGEN 0.2 mg/dL (0.2-1.0)
[2023-11-23] MEDS ORDERED: PANTOPRAZOLE 40 MG TABLET PO ONE (15:51)
[2023-11-23] MEDS ORDERED: LACTULOSE 20 GM/30 ML UDC (FOR ORAL USE ONLY) ONE (16:07)
[2023-11-23] MEDS ORDERED: MAGNESIUM CITRATE 300 ML BOTTLE ONE (16:07)
[2023-11-23] MEDS: LACTULOSE 20 GM/30 ML UDC (FOR ORAL USE ONLY) PO ONE (16:13)
[2023-11-23] MEDS ORDERED: ACETAMINOPHEN 500 MG TABLET (FP) ONE (16:14)
[2023-11-23] MEDS: ACETAMINOPHEN 500 MG TABLET (FP) PO ONE (16:20)
[2023-11-23] MEDS: MAGNESIUM CITRATE 300 ML BOTTLE PO ONE (16:20)
[2023-11-23] MEDS ORDERED: POTASSIUM CHLORIDE TABS 20 MEQ TABLET.ER (FP) PO ONE ×2 (16:42→17:02)
[2023-11-23] MEDS: POTASSIUM CHLORIDE TABS 20 MEQ TABLET.ER (FP) PO ONE (17:01)
[2023-11-23 17:13] VITALS: BP 117/90; PULSE 47; RESP 18
== END 2023-11-23 17:18 | disposition home or self-care (01) ==
LOC: JER 01:49
PROC: 3E033NZ Introduction of Analgesics, Hypnotics, Sedatives into Peripheral Vein, Percutaneous Approach (ICD-10-PCS; principal; 2023-11-23)
PROC: 3E033GC Introduction of Other Therapeutic Substance into Peripheral Vein, Percutaneous Approach (ICD-10-PCS; 2023-11-23)
DX: K59.00 Constipation, unspecified (principal); R10.84 Generalized abdominal pain; K64.8 Other hemorrhoids
CPT/HCPCS: 36415; 74177-TC; 80053; 81003; 82272; 83605; 83690; 83735; 84484; 85025; 85610; 85730; 86850; 86900; 86901; 87086; 93005; 93010; 99285-25; J0131; Q9967

== ENCOUNTER 2024-10-23 10:15 | Inpatient (IN) | payer OTHER ==
[2024-10-23] MEDS: SODIUM CHLORIDE 0.9% 500 ML INFUS.BAG IV ONE (12:09)
[2024-10-23 12:10] LABS: ABSOLUTE IMMATURE GRANULOCYTES 0.01 x10^3/uL (0.0-0.031); BASOPHILS # 0.02 x10^3/uL (0.01-0.08); EOSINOPHIL % 1.6 % (0.7-5.8); EOSINOPHILS # 0.09 x10^3/uL (0.04-0.36); HEMATOCRIT 29.3 % (34.1-44.9); HEMOGLOBIN 10.1 g/dL (11.2-15.7); MCHC 34.5 g/dl (32.2-35.5); MEAN CELL VOLUME 93.3 fl (79.4-94.8); MEAN PLT VOLUME 11.7 fl (9.4-12.3); MONOCYTE % 8.9 % (4.7-12.5); PLATELET COUNT 172 x10^3/uL (182-369); RDW 13.1 % (12.4-16.4)
[2024-10-23 12:24] LABS: INR 0.98 (0.83-1.09); PROTHROMBIN TIME (PATIENT) 10.8 SEC (9.7-13.0)
[2024-10-23 12:27] LABS: ACTIVATED PTT 28.7 SECONDS (25.2-36.5)
[2024-10-23 12:32] LABS: POTASSIUM 4.1 mmol/L (3.5-5.1)
[2024-10-23 12:34] LABS: ALBUMIN 3.3 g/dl (3.4-5.0); CALCIUM 8.9 mg/dL (8.5-10.1)
[2024-10-23 12:35] LABS: BLOOD UREA NITROGEN 16.9 mg/dL (7-18); MAGNESIUM 2.1 mg/dL (1.8-2.4)
[2024-10-23 12:38] LABS: CREATININE 0.9 mg/dL (0.55-1.3); PHOSPHOROUS 3.6 mg/dL (2.5-4.9)
[2024-10-23 12:39] LABS: BILIRUBIN,TOTAL 0.3 mg/dL (0.2-1); TOT PROT 6.8 g/dl (6.4-8.2)
[2024-10-23 14:03] LABS: PH,URINE 7.5 (5.0-8.0); URINE APPEARANCE CLEAR; URINE BILIRUBIN NEGATIVE (NEGATIVE); URINE COLOR YELLOW; URINE GLUCOSE (UA) NEGATIVE (NEGATIVE); URINE KETONE NEGATIVE (NEGATIVE); URINE LEUK ESTERASE NEGATIVE (NEGATIVE); URINE NITRITE NEGATIVE (NEGATIVE); URINE PROTEIN NEGATIVE (NEGATIVE); URINE UROBILINOGEN 0.2 mg/dL (0.2-1.0)
[2024-10-23] MEDS: CIPROFLOXACIN 400 MG/D5W 400 MG/200 ML IVPB IVPB ONE (21:41)
[2024-10-24 07:57] LABS: ABSOLUTE IMMATURE GRANULOCYTES 0.01 x10^3/uL (0.0-0.031); BASOPHILS # 0.02 x10^3/uL (0.01-0.08); EOSINOPHILS # 0.09 x10^3/uL (0.04-0.36); HEMOGLOBIN 10.3 g/dL (11.2-15.7); MCHC 33.2 g/dl (32.2-35.5); MEAN CELL VOLUME 94.2 fl (79.4-94.8); MEAN PLT VOLUME 10.8 fl (9.4-12.3); MONOCYTE # 0.33 x10^3/uL (0.24-0.86); MONOCYTE % 7.3 % (4.7-12.5); PLATELET COUNT 187 x10^3/uL (182-369); RDW 13.3 % (12.4-16.4)
[2024-10-24 08:02] LABS: Reticulocyte % 1.3 % (0.5-1.7)
[2024-10-24 08:17] LABS: POTASSIUM 4.4 mmol/L (3.5-5.1)
[2024-10-24 08:19] LABS: ALBUMIN 3.1 g/dl (3.4-5.0); BLOOD UREA NITROGEN 12.9 mg/dL (7-18); CALCIUM 8.8 mg/dL (8.5-10.1)
[2024-10-24 08:22] LABS: CREATININE 0.8 mg/dL (0.55-1.3)
[2024-10-24 08:23] LABS: PHOSPHOROUS 2.8 mg/dL (2.5-4.9)
[2024-10-24 08:24] LABS: BILIRUBIN,TOTAL 0.4 mg/dL (0.2-1); TOT PROT 6.5 g/dl (6.4-8.2)
[2024-10-24] MEDS: FLUTICASONE/UMECLIDIN/VILANTER(100-62.5-25 TRELEGY ELLIPTA) INAHLER IH SCH (10:32)
[2024-10-24] MEDS: BICTEGRAV/EMTRICIT/TENOFOV (BIKTARVY) 50-200-25 MG TABLET PO SCH (10:33)
[2024-10-24] MEDS: CEFTRIAXONE 1 GM in DEXTROSE 5%-WATER - 50 ML IVPB SCH (11:00)
[2024-10-24] MEDS ORDERED: LORazepam 2 MG/ML SDV VIAL IVPUSH PRN (14:33)
[2024-10-24] MEDS: SODIUM CHLORIDE 1,000 ML IV SCH (14:36)
[2024-10-24] MEDS ORDERED: ACETAMINOPHEN 1000 MG/100 ML BAG IVPB PRN (14:37)
[2024-10-24 18:06] VITALS: BMI 19.5
[2024-10-25 08:00] LABS: ABSOLUTE IMMATURE GRANULOCYTES 0.01 x10^3/uL (0.0-0.031); BASOPHILS # 0.02 x10^3/uL (0.01-0.08); PLATELET COUNT 191 x10^3/uL (182-369)
[2024-10-25 08:01] LABS: EOSINOPHIL % 2.1 % (0.7-5.8); EOSINOPHILS # 0.08 x10^3/uL (0.04-0.36); HEMATOCRIT 31.2 % (34.1-44.9); HEMOGLOBIN 10.4 g/dL (11.2-15.7); MCHC 33.3 g/dl (32.2-35.5); MEAN CELL VOLUME 94.3 fl (79.4-94.8); MEAN PLT VOLUME 11.2 fl (9.4-12.3); MONOCYTE # 0.29 x10^3/uL (0.24-0.86); MONOCYTE % 7.5 % (4.7-12.5); RDW 13.3 % (12.4-16.4)
[2024-10-25 08:14] LABS: POTASSIUM 4.7 mmol/L (3.5-5.1)
[2024-10-25 08:17] LABS: BLOOD UREA NITROGEN 15.1 mg/dL (7-18)
[2024-10-25 08:19] LABS: CALCIUM 8.9 mg/dL (8.5-10.1)
[2024-10-25 08:20] LABS: ALBUMIN 3.2 g/dl (3.4-5.0); MAGNESIUM 1.7 mg/dL (1.8-2.4)
[2024-10-25 08:22] LABS: PHOSPHOROUS 2.9 mg/dL (2.5-4.9)
[2024-10-25 08:23] LABS: CREATININE 0.7 mg/dL (0.55-1.3)
[2024-10-25 08:25] LABS: BILIRUBIN,TOTAL 0.3 mg/dL (0.2-1); TOT PROT 6.5 g/dl (6.4-8.2)
[2024-10-25] MEDS ORDERED: MAGNESIUM OXIDE 400 MG TABLET (FP) ONE (09:45)
[2024-10-25] MEDS ORDERED: MULTIVITAMINS (DAILY MVI) TABLET (FP) ONE (09:46)
[2024-10-25] MEDS: MAGNESIUM OXIDE 400 MG TABLET (FP) PO ONE (09:47)
[2024-10-25] MEDS: MULTIVITAMINS (DAILY MVI) TABLET (FP) PO SCH (09:47)
[2024-10-25] MEDS: PEG 3350/NA SULF BICARB CL/KCL 4000 ML SOLN.RECON PO ONE (09:47)
[2024-10-25] MEDS: BISACODYL 5 MG TABLET.DR (FP) PO ONE (17:18)
[2024-10-26 09:15] LABS: ABSOLUTE IMMATURE GRANULOCYTES 0.01 x10^3/uL (0.0-0.031); BASOPHILS # 0.01 x10^3/uL (0.01-0.08); EOSINOPHIL % 2.1 % (0.7-5.8); EOSINOPHILS # 0.08 x10^3/uL (0.04-0.36); HEMOGLOBIN 10.1 g/dL (11.2-15.7); MCHC 34.8 g/dl (32.2-35.5); MEAN CELL VOLUME 91.8 fl (79.4-94.8); MEAN PLT VOLUME 10.7 fl (9.4-12.3); MONOCYTE # 0.28 x10^3/uL (0.24-0.86); MONOCYTE % 7.5 % (4.7-12.5); PLATELET COUNT 190 x10^3/uL (182-369); RDW 12.9 % (12.4-16.4)
[2024-10-26 09:27] LABS: INR 1.03 (0.83-1.09); PROTHROMBIN TIME (PATIENT) 11.3 SEC (9.7-13.0)
[2024-10-26 09:50] LABS: POTASSIUM 3.9 mmol/L (3.5-5.1)
[2024-10-26 10:01] LABS: ALBUMIN 3.1 g/dl (3.4-5.0); BILIRUBIN,TOTAL 0.3 mg/dL (0.2-1); BLOOD UREA NITROGEN 9.5 mg/dL (7-18); CALCIUM 8.4 mg/dL (8.5-10.1); CREATININE 0.7 mg/dL (0.55-1.3); MAGNESIUM 1.9 mg/dL (1.8-2.4); PHOSPHOROUS 2.8 mg/dL (2.5-4.9); TOT PROT 6.3 g/dl (6.4-8.2)
[2024-10-26 15:06] VITALS: RESP 18
[2024-10-26 15:57] VITALS: BP 170/86; PULSE 55; TEMP 97.9
[2024-10-26] MEDS ORDERED: metroNIDAZOLE 250 MG TABLET PO ONE (17:12)
== END 2024-10-26 17:38 | disposition home or self-care (01) | DRG 249 ==
LOC: JER 10:15 → JERBED 18:10 → OBSVTOIN 21:04 → J8W 22:14
PROVIDERS: ADMIT Internal Medicine; ATTEND Nurse Practitioner Family
PROC: 0DB98ZX Excision of Duodenum, Via Natural or Artificial Opening Endoscopic, Diagnostic (ICD-10-PCS; 2024-10-26)
PROC: 0DJD8ZZ Inspection of Lower Intestinal Tract, Via Natural or Artificial Opening Endoscopic (ICD-10-PCS; 2024-10-26)
PROC: 0DB68ZX Excision of Stomach, Via Natural or Artificial Opening Endoscopic, Diagnostic (ICD-10-PCS; principal; 2024-10-26 12:15)
DX: K52.9 Noninfective gastroenteritis and colitis, unspecified (principal); F19.20 Other psychoactive substance dependence, uncomplicated; D64.9 Anemia, unspecified; J45.909 Unspecified asthma, uncomplicated; K29.70 Gastritis, unspecified, without bleeding; K44.9 Diaphragmatic hernia without obstruction or gangrene; K57.30 Diverticulosis of large intestine without perforation or abscess without bleeding; K62.5 Hemorrhage of anus and rectum; K64.2 Third degree hemorrhoids; R10.32 Left lower quadrant pain; Z21 Asymptomatic human immunodeficiency virus [HIV] infection status
CPT/HCPCS: 0241U-QW; 36415; 70450-TC; 74177-TC; 80053; 81003; 82728; 82962; 83036; 83540; 83550; 83605; 83690; 83735; 84100; 85025; 85610; 85730; 86359; 86360; 86850; 86900; 86901; 87086; 88305-TC; 88341-TC; 88342-TC; 93005; 93010; 99285-25; G0378